=== PATIENT | male | born 1950 | race Caucasian/White ===

== ENCOUNTER 2017-03-28 10:31 | Outpatient (CLI) | payer MEDICARE ==
[~2017-03-28] VITALS: Ht 172.7 cm; Wt 96.2 kg
[~2017-03-28 10:31] MED LIST: /WARF25TA OR; ADV500INH INH; ALBU17IN INH; ALLO10TA OR; ALLO10TA PO; ATEN50TA2 PO; ATOR1TAB21 PO; CLOP75TA2 PO; DIGO0.25 PO; ELIQ5TAB PO; LOVA40TA PO; LR 1,000 ML IV SCH; MAXAIR INH; METO25TAB PO; MISO200T56 PO; NITR4TASL SL; OXYCONTIN OR; PANT40TA2 PO; PERCOCET OR; POTA20TA PO; SUCR1TAB56 PO; VENTAER INH; VITA100072 PO; VITMTA OR; VITMTA PO
[2017-03-28] MEDS ORDERED: LIDOCAINE 2% INJ 100 MG/5 ML SDV (FOR ANES.) As Ordered ONE (11:10)
[2017-03-28] MEDS ORDERED: PROPOFOL 200 MG/20 ML VIAL As Ordered ONE (11:10)
--- NOTE | 2017-03-28 12:42 | ROOR ---
Patient Name: Sandro Nash Procedure Date: 03/28/2017 11:54 AM Date of : 1950 Age: 67 Room: [facility] Gender: Male Note Status: Finalized Procedure: Colonoscopy Indications: Last colonoscopy: 2003, Positive Cologuard test Providers: Sandro Alfonso MD Referring MD: Shane Vance MD Requesting Provider: Medicines: Monitored Anesthesia Care Complications: No immediate complications. Procedure: Pre-Anesthesia Assessment: - Prior to the procedure, a History and Physical was performed, and patient medications and allergies were reviewed. The patient is competent. The risks and benefits of the procedure and the sedation options and risks were discussed with the patient. All questions were answered and informed consent was obtained. Patient identification and proposed procedure were verified by the physician, the nurse and the anesthesiologist in the procedure room. Mental Status Examination: alert and oriented. Airway Examination: normal oropharyngeal airway and neck mobility. CV Examination: regular rate and rhythm. Prophylactic Antibiotics: The patient does not require prophylactic antibiotics. Prior Anticoagulants: The patient has taken no previous anticoagulant or antiplatelet agents. ASA Grade Assessment: III - A patient with severe systemic disease. After reviewing the risks and benefits, the patient was deemed in satisfactory condition to undergo the procedure. The anesthesia plan was to use monitored anesthesia care (MAC). Immediately prior to administration of medications, the patient was re-assessed for adequacy to receive sedatives. The heart rate, respiratory rate, oxygen saturations, blood pressure, adequacy of pulmonary ventilation, and response to care were monitored throughout the procedure. The physical status of the patient was re-assessed after the procedure. The Colonoscope was introduced through the anus and advanced to the cecum, identified by appendiceal orifice and ileocecal valve. The colonoscopy was performed without difficulty. The patient tolerated the procedure well. The quality of the bowel preparation was good. Findings: The perianal and digital rectal examinations were normal. Three sessile polyps were found in the ascending colon. The polyps were 6 to 15 mm in size. These polyps were removed with a hot snare. Resection and retrieval were complete. Estimated blood loss: none. A 5 mm polyp was found at 20 cm proximal to the anus. The polyp was sessile. The polyp was removed with a hot snare. Resection and retrieval were complete. A 8 mm polyp was found in the rectum. The polyp was sessile. The polyp was removed with a hot snare. Resection and retrieval were complete. A few medium-mouthed diverticula were found in the sigmoid colon and descending colon. Impression: - Three 6 to 15 mm polyps in the ascending colon, removed with a hot snare. Resected and retrieved. - One 5 mm polyp at 20 cm proximal to the anus, removed with a hot snare. Resected and retrieved. - One 8 mm polyp in the rectum, removed with a hot snare. Resected and retrieved. - Diverticulosis in the sigmoid colon and in the descending colon. Recommendation: - Discharge patient to home. - Resume previous diet. - Continue present medications. - Await pathology results. - Telephone endoscopist for pathology results in 1 week. Sandro Alfonso MD 03/28/2017 12:42:34 PM Number of Addenda: 0 Note Initiated On: 03/28/2017 11:54 AM Estimated Blood Loss: Estimated blood loss: none.
[2017-03-28 13:05] VITALS: BP 149/96
== END 2017-03-28 13:15 | disposition home or self-care (01) ==
LOC: M OPP 10:31
PROVIDERS: ATTEND Surgery
DX: D12.2 Benign neoplasm of ascending colon (principal); D12.5 Benign neoplasm of sigmoid colon; D12.8 Benign neoplasm of rectum; K57.30 Diverticulosis of large intestine without perforation or abscess without bleeding; I25.2 Old myocardial infarction; I25.10 Atherosclerotic heart disease of native coronary artery without angina pectoris; I10 Essential (primary) hypertension; E78.00 Pure hypercholesterolemia, unspecified; Z95.0 Presence of cardiac pacemaker; M10.9 Gout, unspecified; I48.92 Unspecified atrial flutter; M19.90 Unspecified osteoarthritis, unspecified site; J45.909 Unspecified asthma, uncomplicated; E66.9 Obesity, unspecified; Z87.891 Personal history of nicotine dependence; Z96.9 Presence of functional implant, unspecified; Z98.0 Intestinal bypass and anastomosis status; Z79.899 Other long term (current) drug therapy; Z79.51 Long term (current) use of inhaled steroids

== ENCOUNTER → 2018-03-09 | Outpatient (CLI) | payer MEDICARE | LOC: M LAB 13:25 | DX: J45.41 Moderate persistent asthma with (acute) exacerbation (principal) | CPT/HCPCS: 71046 ==

== ENCOUNTER → 2018-09-04 | Outpatient (CLI) | payer MEDICARE ==
[~2018-09-04] MED LIST changes: +KLOR20TA42 PO; -LR 1,000 ML IV SCH; -PANT40TA2 PO; +PANT40TA3 PO; -POTA20TA PO
[2018-09-04 09:15] LABS: HEMATOCRIT 41.7 % (42.0-52.0); MEAN CORPUSCULAR HEMOGLOBIN 26.8 pg (27.0-33.0); MEAN CORPUSCULAR HGB CONC 31.2 g/dl (32.0-36.5); PLATELET COUNT, AUTOMATED 237 10^3/uL (150-450); RED BLOOD COUNT 4.85 10^6/uL (4.30-6.10); WHITE BLOOD COUNT 6.7 10^3/uL (4.0-10.0)
[2018-09-04 09:39] LABS: HEMOGLOBIN A1c 7.2 %
[2018-09-04 09:48] LABS: ALBUMIN 3.9 GM/DL (3.2-5.2); ALT/SGPT 34 U/L (12-78); BILIRUBIN,TOTAL 0.6 MG/DL (0.2-1.0); BLOOD UREA NITROGEN 18 MG/DL (7-18); CALCIUM LEVEL 8.8 MG/DL (8.8-10.2); CARBON DIOXIDE LEVEL 25 MEQ/L (21-32); CHLORIDE LEVEL 107 MEQ/L (98-107); CHOLESTEROL LEVEL 95 MG/DL (<200); CHOLESTEROL RISK RATIO 2.638 (<5); FERRITIN 32 NG/ML (26-388); GLOMERULAR FILTRATION RATE > 60.0 (>42); GLUCOSE, FASTING 138 MG/DL (70-100); HDL CHOLESTEROL 36 MG/DL (>40); IRON (FE) 56 UG/DL (65-175); LDL CHOLESTEROL 31 MG/DL (<100); MAGNESIUM LEVEL 1.9 MG/DL (1.8-2.4); NON-HDL-C 59 MG/DL; PERCENT SATURATION 14.6 % (19.7-50.0); POTASSIUM SERUM 4.1 MEQ/L (3.5-5.1); SODIUM LEVEL 140 MEQ/L (136-145); THYROID STIMULATING HORMONE 0.801 uIU/ML (0.358-3.740); TOTAL IRON BINDING CAPACITY 384 UG/DL (250-450); TRIGLYCERIDES LEVEL 138 MG/DL (<150)
[2018-09-04 09:49] LABS: FOLATE 23.9 NG/ML; TOTAL 25(OH) VITAMIN D 31.9 NG/ML (30.0-100.0); VITAMIN B12 LEVEL > 2000 PG/ML
== END ==
LOC: M LAB 08:07
PROVIDERS: ATTEND Family Medicine
DX: Z98.84 Bariatric surgery status (principal); E66.9 Obesity, unspecified; Z79.899 Other long term (current) drug therapy

== ENCOUNTER → 2019-02-26 | Outpatient (CLI) | payer MEDICARE, OTHER ==
[~2019-02-26] MED LIST changes: -/WARF25TA OR; +COUM1TAB18 OR; +METO1TAB63 PO; -METO25TAB PO; +OXYC1TAB23 OR; -PERCOCET OR; +VITA100018 PO; -VITA100072 PO
--- NOTE | 2019-02-26 08:08 | REP ---
Clinical: Asthma with acute exacerbation. Technique: PA and lateral. Comparison: 03/09/2018. Findings: Mediastinum and cardiac silhouette are stable including pacemaker, sternotomy and CABG. Lung de dios demonstrate chronic stable interstitial changes primarily involving the right base. No definite acute process is appreciated although subtle superimposed atelectasis cannot be excluded. No effusion. No pneumothorax. Skeletal structures intact. Impression: Chronic stable changes as compared to 03/09/2018. Cannot exclude subtle superimposed atelectasis. Electronically Signed by Uriel Blas MD 02/26/2019 07:59 A
== END ==
LOC: M RAD 07:11
PROVIDERS: ATTEND Internal Medicine Pulmonary Disease
DX: J45.41 Moderate persistent asthma with (acute) exacerbation (principal); J84.9 Interstitial pulmonary disease, unspecified

== ENCOUNTER → 2019-03-09 | Outpatient (CLI) | payer MEDICARE ==
[2019-03-09 08:54] LABS: HEMATOCRIT 39.4 % (42.0-52.0); HEMOGLOBIN 12.4 g/dl (13.5-17.5); MEAN CORPUSCULAR HEMOGLOBIN 26.4 pg (27.0-33.0); MEAN CORPUSCULAR HGB CONC 31.5 g/dl (32.0-36.5); PLATELET COUNT, AUTOMATED 215 10^3/uL (150-450); RED BLOOD COUNT 4.69 10^6/uL (4.30-6.10); WHITE BLOOD COUNT 7.4 10^3/uL (4.0-10.0)
[2019-03-09 09:19] LABS: ALBUMIN 3.8 GM/DL (3.2-5.2); ALT/SGPT 41 U/L (12-78); BILIRUBIN,TOTAL 0.6 MG/DL (0.2-1.0); BLOOD UREA NITROGEN 16 MG/DL (7-18); CALCIUM LEVEL 8.8 MG/DL (8.8-10.2); CARBON DIOXIDE LEVEL 29 MEQ/L (21-32); CHLORIDE LEVEL 109 MEQ/L (98-107); CHOLESTEROL LEVEL 122 MG/DL (<200); CHOLESTEROL RISK RATIO 2.837 (<5); GLOMERULAR FILTRATION RATE > 60.0 (>42); GLUCOSE, FASTING 124 MG/DL (70-100); HDL CHOLESTEROL 43 MG/DL (>40); LDL CHOLESTEROL 33 MG/DL (<100); MAGNESIUM LEVEL 2.1 MG/DL (1.8-2.4); NON-HDL-C 79 MG/DL; POTASSIUM SERUM 4.3 MEQ/L (3.5-5.1); SODIUM LEVEL 142 MEQ/L (136-145); TOTAL PROTEIN 7.1 GM/DL (6.4-8.2); TRIGLYCERIDES LEVEL 232 MG/DL (<150)
== END ==
LOC: M LAB 06:59
PROVIDERS: ATTEND Physician Assistant
DX: I11.9 Hypertensive heart disease without heart failure (principal); E78.00 Pure hypercholesterolemia, unspecified; I48.3 Typical atrial flutter; I25.10 Atherosclerotic heart disease of native coronary artery without angina pectoris

== ENCOUNTER → 2020-04-18 | Outpatient (CLI) | payer MEDICARE, OTHER ==
[~2020-04-18] MED LIST changes: +PANT40TA29 PO; -PANT40TA3 PO
== END ==
LOC: M LABSMTC 08:06
PROVIDERS: ATTEND Anesthesiology
DX: Z01.812 Encounter for preprocedural laboratory examination (principal); Z20.828 Contact with and (suspected) exposure to other viral communicable diseases

== ENCOUNTER 2020-04-23 09:48 | Day surgery (SDC) | payer MEDICARE, OTHER ==
[~2020-04-23] VITALS: Ht 172.7 cm; Wt 100.2 kg
[~2020-04-23 09:48] MED LIST changes: +NS 1,000 ML IV ONE
[2020-04-23] MEDS ORDERED: propofoL 200 MG/20 ML VIAL As Ordered ONE (11:56)
[2020-04-23 13:05] VITALS: BP 130/75
--- NOTE | 2020-05-06 11:30 | ROOR ---
Patient Name: Sandro Nash Procedure Date: 04/23/2020 12:07 PM Date of : 1950 Age: 70 Room: [facility] Gender: Male Note Status: Finalized Procedure: Colonoscopy Indications: High risk colon cancer surveillance: Personal history of colonic polyps, Last colonoscopy: March 2017 Providers: Sandro Alfonso MD Referring MD: Shane Vance MD Requesting Provider: Medicines: Monitored Anesthesia Care Complications: No immediate complications. Procedure: Pre-Anesthesia Assessment: - Prior to the procedure, a History and Physical was performed, and patient medications and allergies were reviewed. The patient is competent. The risks and benefits of the procedure and the sedation options and risks were discussed with the patient. All questions were answered and informed consent was obtained. Patient identification and proposed procedure were verified by the physician, the nurse and the manager personal in the procedure room. Mental Status Examination: alert and oriented. CV Examination: regular rate and rhythm. Prophylactic Antibiotics: The patient does not require prophylactic antibiotics. Prior Anticoagulants: The patient has taken no previous anticoagulant or antiplatelet agents. ASA Grade Assessment: III - A patient with severe systemic disease. After reviewing the risks and benefits, the patient was deemed in satisfactory condition to undergo the procedure. The anesthesia plan was to use monitored anesthesia care (MAC). Immediately prior to administration of medications, the patient was re-assessed for adequacy to receive sedatives. The heart rate, respiratory rate, oxygen saturations, blood pressure, adequacy of pulmonary ventilation, and response to care were monitored throughout the procedure. The physical status of the patient was re-assessed after the procedure. The Colonoscope was introduced through the anus and advanced to the cecum, identified by appendiceal orifice and ileocecal valve. The colonoscopy was performed without difficulty. The patient tolerated the procedure well. The quality of the bowel preparation was good. Findings: The perianal and digital rectal examinations were normal. A 3 mm polyp was found in the proximal transverse colon. The polyp was sessile. The polyp was removed with a jumbo cold forceps. Resection and retrieval were complete. Estimated blood loss was minimal. Many medium-mouthed diverticula were found in the sigmoid colon, descending colon, splenic flexure and transverse colon. A 3 mm polyp was found at 20 cm proximal to the anus. The polyp was sessile. The polyp was removed with a jumbo cold forceps. Resection and retrieval were complete. Estimated blood loss was minimal. Impression: - One 3 mm polyp in the proximal transverse colon, removed with a jumbo cold forceps. Resected and retrieved. - Diverticulosis in the sigmoid colon, in the descending colon, at the splenic flexure and in the transverse colon. - One 3 mm polyp at 20 cm proximal to the anus, removed with a jumbo cold forceps. Resected and retrieved. Recommendation: - Discharge patient to home. - Resume previous diet. - Continue present medications. - Await pathology results. - If the pathology report reveals adenomatous tissue, then repeat the colonoscopy for surveillance in 3 - 5 years. Sandro Alfonso MD Sandro Alfonso MD 04/23/2020 12:59:00 PM Number of Addenda: 0 Note Initiated On: 04/23/2020 12:07 PM Estimated Blood Loss: Estimated blood loss was minimal.
== END 2020-04-23 13:24 | disposition home or self-care (01) ==
LOC: M OPP 09:48
PROVIDERS: ATTEND Surgery
DX: Z12.11 Encounter for screening for malignant neoplasm of colon (principal); Z86.010 Personal history of colon polyps; D12.6 Benign neoplasm of colon, unspecified; K57.30 Diverticulosis of large intestine without perforation or abscess without bleeding; I25.2 Old myocardial infarction; Z79.899 Other long term (current) drug therapy; Z98.84 Bariatric surgery status; Z87.891 Personal history of nicotine dependence; Z95.812 Presence of fully implantable artificial heart

== ENCOUNTER → 2021-04-08 | Outpatient (CLI) | payer OTHER ==
[~2021-04-08] MED LIST changes: -NS 1,000 ML IV ONE
--- NOTE | 2021-04-08 08:55 | REP ---
INDICATION: MODERATE PERSISTENT ASTHMA, UNCOMPLICATED. COMPARISON: 02/26/2019 TECHNIQUE: Two views FINDINGS: Postoperative changes after cardiac surgery interval pacemaker insertion PA who heart slightly enlarged. No interval change since the previous study. No failure. Chronic changes at the right base showing no interval change compared with the previous study. Partial eventration right hemidiaphragm. Lungs free of active parenchymal disease PH chronic blunting left costophrenic angle. IMPRESSION: No interval change when compared with the previous study paired no evidence of pneumonia or failure. <Electronically signed by Jagjit Orozco > 04/08/21 1998
== END ==
LOC: M RAD 08:37
PROVIDERS: ATTEND Internal Medicine Pulmonary Disease
DX: J45.40 Moderate persistent asthma, uncomplicated (principal); Z95.0 Presence of cardiac pacemaker

== ENCOUNTER 2021-08-09 23:02 | Emergency (ER) | payer OTHER ==
[~2021-08-09] VITALS: Ht 172.7 cm; Wt 102.3 kg
[2021-08-09 23:02] VITALS: BP 143/77
[~2021-08-09 23:02] MED LIST changes: -KLOR20TA42 PO; +POTA-141 PO
--- OUTSIDE RECORDS SUMMARY | 2021-08-09 23:10 | CCD | Continuity of Care Document ---
Author Author Sandro BENNETT PA-C Organization Unknown Address [id number] [place] [address], [place] [address] Phone [phone] Care Team Providers Care Leasing Director Name Role Phone Shane Vance MD AUTM [phone] Ariel Stanford DO AUTM [phone] Shen Aviles PA-C AUTM [phone] Jackelin Walker MD AUTM [phone] Leandra Xie MD AUTM [phone] Natali Bennett PA-C AUTM [phone] Tylor Cash MD AUTM [phone] Problems Active Problems Provider Date Coronary arteriosclerosis SOILA Villagomez Onset: 12/08/2011 Coronary artery bypass grafts x 3 ARABELLA Villagomez Onset: 12/08/2011 Old myocardial infarction SOILA Villagomez Onset: 12/08/2011 Benign hypertensive heart disease without congestive h eart failure SOILA Villagomez Onset: 12/08/2011 Aneurysm of thoracic aorta Natali Bennett PA-C Onset: 07/18 Electrocardiogram abnormal SOILA Villagomez Onset : 12/08/2011 Right bundle branch block SOILA Villagomez Onset: 12/08/2011 Aortic valve disorder SOILA Villagomez Onset: 07/2012 Mitral valve disorder SOILA Villagomez Onset: 07/2012 Pure hypercholesterolemia Hiral Corea, [employer] Onset: 12/08/2011 Obesity ELLIOT VillaC Onset: 07/18/2014 History of coronary artery bypass grafting Natali Bennett P A-C Onset: 06/18/2015 Mitral leaflet abnormality ELLIOT VillaC Onset: 06/18 Carotid artery occlusion ASIM Villa-C Onset: 016 Atrial flutter ELLIOT VillaC Onset: 07/25/2016 Sinus node dysfunction ELLIOT VillaC Onset: 7 Cardiac pacemaker in situ ELLIOT VillaC Onset: 2016 Dietary management surveillance Natali Bennett PA-C Onset: 08/03/2017 Chronic diastolic heart failure ELLIOT VillaC Onset: 03/16/2021 Hypertensive heart disease with congestive heart failure Gemma Bennett PA-C Onset: 03/16/2021 Allergic asthma without status asthmaticus Onset: 01/13/2017 Cough Onset: 04/01/2021 Essential hypertension Onset: 01/13/2017 Hemorrhage of rectum and anus Onset: 08/2016 Sarcoidosis Onset: 07/28/2020 Social History Type Date Description Comments Sex Unknown Tobacco Use Start: Unknown End: Unknown Former Cigarette Smo ker quit 35 yrs ago, 1ppd ETOH Use Consumes Alcohol 2-3 drinks- 3 t imes a week Tobacco Use Start: Unknown End: Unknown Patient is a former smoker quit 1978 1ppd smoked 10 years Smoking Status Reviewed: 07/26/21 Patient is a former smoker q uit 1978 1ppd smoked 10 years Exercise Type/Frequency Does housework daily Exercise Type/Frequency Plays golf 3 times a wee k Exercise Type/Frequency Walks daily Exercise Limitations None Allergies and adverse reactions Description No Known Drug Allergies Medications Active Medications SIG Qnty Indications Ordering Provide r Date Eliquis 5mg Tablets 1 by mouth twice a day 180tabs I48.3 Valentin Ye MD 05/05/2021 Atenolol 50mg Tablets 1 by mouth twice a day 180tabs I25.10 Valentin Ye MD 05/05/2021 I11.9 I48.3 Valsartan 40mg Tablets 1 by mouth every night at bedtime 90tabs I25.10 Valentin Ye MD 05/05/2021 I50.32 Aspirin Adult Low Dose 81mg Tablet s DR 1 by mouth every day Valentin Ye MD 05/04/2021 Furosemide 20mg Tablets 1 by mouth every day 90tabs I50.31 Valentin Ye MD 12/16/2020 Misoprostol 200mcg Tablets 1 by mouth bid Unknown 03/06/2019 Vitamin C ER 1000mg Tablets ER take 1 tab by mouth daily Unknown 02/06/2018 Maxair Autohaler 200mcg/Inh Aeroso l 2 puffs as needed Ariel Stanford, DO 07/24/2016 Calcium Citrate + Tablets 1 by mouth twice a day Chang Vega MD 07/24/2016 Advair Diskus 250-50mcg/Dose Aeros ol 1 puff twice a day Ariel Stanford, DO 07/24/2016 Potassium Chloride ER 20Meq Tablet s ER 1 by mouth every day Jackelin Walker MD 016 Vitamin B-12 500mcg Tablets 1 by mouth every day Jackelin Walker MD 12/17/2015 Atorvastatin Calcium 80mg Tablets 1 by mouth every night at bedtime 90tabs E78.00 Valentin Ye MD 03/05/2014 I25.10 Nitrostat 0.4mg Tablets Sub 1 sl every 5min x3 as needed for chest pain 25tabs I25.10 Valentin Ye MD 08/01/2011 Allopurinol 100mg Tablets 1 P O daily Shane Vance MD 06/20/2008 Multivitamins Tablets 1 PO d aily Shane Vance MD History Medications Lisinopril 2.5mg Tablets 1 by mouth every night at bedtime 90tabs I25.10 Valentin Ye MD 03/16/2021 - 05/04/2021 I50.32 Immunizations Description No Information Available Vital Signs Date Vital Result Comment 07/26/2021 9:25am Weight 227.00 lb Home Weight 226lb home weight Height 68 inches 5'8" BMI (Body Mass Index) 34.5 kg/m2 Heart Rate 76 /min Regular Respiratory Rate 16 /min BP Systolic Right Arm 128 mmHg sitting, regular c uff BP Diastolic Right Arm 74 mmHg sitting, regular cuff 05/05/2021 8:04am Weight 220.00 lb Home Weight 218lb Height 68 inches 5'8" BMI (Body Mass Index) 33.4 kg/m2 Heart Rate 80 /min Irregular Respiratory Rate 16 /min BP Systolic Right Arm 128 mmHg sitting, regular c uff BP Diastolic Right Arm 74 mmHg sitting, regular cuff Results Test Acquired Date Facility Test Result H/L Range Note Basic Metabolic Profile 06/28/2021 [facility] [place] Glucose 108 mg/dL High 65-99 BUN 16 mg/dL 8-27 Creatinine 0.81 mg/dL 0.76-1.27 eGFR If NonAfricn Am 88 mL/min/1.73 >59 eGFR If Africn Am 102 mL/min/1.73 >59 1 BUN/Creatinine Ratio 20 10-24 Sodium 142 mmol/L 134-144 Potassium 4.8 mmol/L 3.5-5.2 Chloride 105 mmol/L 96-106 Carbon Dioxide, Total 25 mmol/L 20-29 Calcium 9.2 mg/dL 8.6-10.2 Laboratory test finding 06/28/2021 [facility] Magnesium 1.9 mg/dL 1.6-2.3 PDF [id number] SEE IMAGE CMP 03/15/2021 [facility] Albumin Serum/Plasma 4.6 Alt - SGPT 30 Calcium Ser/Plasma Mass/Vol 9.4 Carbon Dioxide Ser/Plasm 25 Chloride Serum/Plasma 102 Alkaline Phosphatase 123 Potassium 4.7 Protein Total 7.2 Sodium 139 Ast - Sgot 23 BUN - Urea Nitrogen 15 Glucose 157 High 70-100 Creatinine For GFR 0.91 CBC without Differential 03/15/2021 [facility] White Blood Count 8.9 4.3-10.9 Red Blood Count 5.18 4.70-6.20 Platelets 263 130-400 Hemoglobin 11.3 Low 13.0-17.0 Hematocrit 38.8 Low 39.0-50.0 Lipid Profile/Cardiac Risk Pro 03/15/2021 [facility] Triglycerides 226 Cholesterol 116 Low 120-200 HDL 38 Low 40-60 LDL Cholesterol 42 Chol/HDL Ratio -- Laboratory test finding 03/15/2021 [facility] Magnesium Level 2.0 Metabolic Panel (14), Comprehensive 03/15/2021 [facility] Glucose 157 mg/dL High 65-99 BUN 15 mg/dL 8-27 Creatinine 0.91 mg/dL 0.76-1.27 eGFR If NonAfricn Am 83 mL/min/1.73 >59 eGFR If Africn Am 96 mL/min/1.73 >59 2 BUN/Creatinine Ratio 16 10-24 Sodium 139 mmol/L 134-144 Potassium 4.7 mmol/L 3.5-5.2 Chloride 102 mmol/L 96-106 Carbon Dioxide, Total 25 mmol/L 20-29 Calcium 9.4 mg/dL 8.6-10.2 Protein, Total 7.2 g/dL 6.0-8.5 Albumin 4.6 g/dL 3.7-4.7 Globulin, Total 2.6 g/dL 1.5-4.5 A/G Ratio 1.8 1.2-2.2 Bilirubin, Total 0.5 mg/dL 0.0-1.2 Alkaline Phosphatase 123 IU/L High 48-121 Ast (Sgot) 23 IU/L 0-40 Alt (SGPT) 30 IU/L 0-44 CBC, Platelet, No Differential 03/15/2021 [facility] WBC 8.9 x10E3/uL 3.4-10.8 RBC 5.18 x10E6/uL 4.14-5.80 Hemoglobin 11.3 g/dL Low 13.0-17.7 Hematocrit 38.8 % 37.5-51.0 MCV 75 fL Low 79-97 MCH 21.8 pg Low 26.6-33.0 MCHC 29.1 g/dL Low 31.5-35.7 RDW 19.8 % High 11.6-15.4 Platelets 263 x10E3/uL 150-450 NRBC TNP Lipid Panel 03/15/2021 [facility] Cholesterol, Total 116 mg/dL 100-199 Triglycerides 226 mg/dL High 0-149 HDL Cholesterol 38 mg/dL Low >39 VLDL Cholesterol Sánchez 36 mg/dL 5-40 LDL Chol Calc (Nih) 42 mg/dL 0-99 Comment: [place] Laboratory test finding 03/15/2021 [facility] Magnesium 2.0 mg/dL 1.6-2.3 PDF [id number] SEE IMAGE 1 In accordance with recomme ndations from the NKF-ASN Task force, [facility] the [facility] eGFR calculation to the 2020 CKD-EPI creatinine equation that es timates kidney function without a race variable. 2 [facility] currently [facility] eGFR in compliance with the current recommendations of the National Kidney Foundation. [employer] will update reporting as new guidelines are published from the NKF-ASN Task force. Procedures Date Code Description Status 07/26/2021 29255 Office/Outpatient Established Lo w MDM 20-29 Min Completed 07/26/2021 70583 ECG 12-Lead Completed 05/05/2021 04912 Office/Outpatient Established Lo w MDM 20-29 Min Completed 05/05/2021 91393 Pacer Programming Single Lead Co mpleted 03/16/2021 84933 Office/Outpatient Established Mo d MDM 30-39 Min Completed 03/16/2021 10589 ECG 12-Lead Completed Medical Devices Description No Information Available Encounters Type Date Location Provider Dx Diagnosis Office Visit 07/26/2021 9:30a Main Office Natali Bennett PA-C I50.3 2 Chronic diastolic (congestive) heart failure I48.3 Typical atrial flutter Office Visit 05/05/2021 7:45a Main Office Natali Bennett PA-C I48.3 Typical atrial flutter I50.32 Chronic diastolic (congestiv e) heart failure I49.5 Sick sinus syndrome Office Visit 03/16/2021 7:45a Main Office Natali Bennett PA-C I25.1 0 Athscl heart disease of [place] coronary artery w/o ang pctrs I25.2 Old myocardial infarction Z95.1 Presence of aortocoronary by pass graft I50.32 Chronic diastolic (congestiv e) heart failure I11.0 Hypertensive heart disease w ith heart failure I48.3 Typical atrial flutter I71.2 Thoracic aortic aneurysm, wi thout rupture I35.1 Nonrheumatic aortic (valve) insufficiency I34.8 Other nonrheumatic mitral va lve disorders R94.31 Abnormal electrocardiogram [ ECG] [EKG] I45.0 Right fascicular block E78.00 Pure hypercholesterolemia, u nspecified I65.23 Occlusion and stenosis of bi lateral carotid arteries I49.5 Sick sinus syndrome Z95.0 Presence of cardiac pacemake r Z71.3 Dietary counseling and surve illance Assessments Date Code Description Provider 07/26/2021 I50.32 Chronic diastolic (congestive) h eart failure Natali Bennett, PA-C 07/26/2021 I48.3 Typical atrial flutter Natali razoow, PA-C 05/05/2021 I48.3 Typical atrial flutter Natali Dominguez menow, PA-C 05/05/2021 I50.32 Chronic diastolic (congestive) h eart failure Natali Bennett, PA-C 05/05/2021 I49.5 Sick sinus syndrome Natali valenzuela, PA-C 03/16/2021 I25.10 Atherosclerotic heart disease of [place] coronary artery with Natali Bennett, PA-C 03/16/2021 I25.2 Old myocardial infarction Natali Bennett, PA-C 03/16/2021 Z95.1 Presence of aortocoronary bypass graft Natali Bennett, PA-C 03/16/2021 I50.32 Chronic diastolic (congestive) h eart failure Natali Bennett, PA-C 03/16/2021 I11.0 Hypertensive heart disease with heart failure Natali Thomasw, PA-C 03/16/2021 I48.3 Typical atrial flutter Natali razoow, PA-C 03/16/2021 I71.2 Thoracic aortic aneurysm, withou t rupture Natali Bennett, PA-C 03/16/2021 I35.1 Nonrheumatic aortic (valve) insu fficiency Natali Thomasw, PA-C 03/16/2021 I34.8 Other nonrheumatic mitral valve disorders Natali Thomasw, PA-C 03/16/2021 R94.31 Abnormal electrocardiogram [ECG] [EKG] Natali Thomasw, PA-C 03/16/2021 I45.0 Right fascicular block Natali boggs, PA-C 03/16/2021 E78.00 Pure hypercholesterolemia, unspe cified Natali Thomasw, PA-C 03/16/2021 I65.23 Occlusion and stenosis of bilate ral carotid arteries Natali Thomasw, PA-C 03/16/2021 I49.5 Sick sinus syndrome Natali valenzuela PA-C 03/16/2021 Z95.0 Presence of cardiac pacemaker Deysi Saldivar PA-C 03/16/2021 Z71.3 Dietary counseling and surveilla ncanthony Bennett PA-C Plan of Treatment Future Appointment(s):* 10/25/2021 10:15 am - Natali Bennett PA-C at Main Office * 11/03/2021 7:45 am - Natali Bennett PA-C at Main Office 07/26/2021 - Natali Bennett PA-C* I50.32 Chronic diastolic (congestive) heart failure* New Labs:* Basic Metabolic Panel (8), Scheduled: 10/18/21 * Recommendations:* Follow a 2 grams sodium diet and 50 ounces fluid restriction per 24 hour and do daily weights. Call the office for weight gain of 3 lbs or more. * I48.3 Typical atrial flutter* New Labs:* Basic Metabolic Panel (8), Scheduled: 10/18/21 * Magnesium, Scheduled: 10/18/21 * CBC, Platelet, No Differential, Scheduled: 10/18/21 * All * Follow up:* 3 month follow up. Request carotid ultrasound done at Dr. Cash's office about 2 weeks ago. Functional Status Functional Condition Comment Date Status Independent with all ADL's Activ e Mental Status Description No Information Available Referrals Description No Information Available
--- OUTSIDE RECORDS SUMMARY | 2021-08-09 23:10 | CCD ---
Continuity of Care Document (CCD) Created on: 05/25/2021 Sandro Nash External Reference #: [id number] : [id number] Sex: Male Author Sandro Godoy DO Organization Unknown Address [address] [place] [address] Phone [phone] Care Team Providers Care Building Maintenance Worker Name Role Phone Shane Vance M.D. AUTM [phone] Valentin Ye M.D. AUTM [phone] Problems Active Problems Provider Date Essential hypertension Onset: 01/13/2017 Allergic asthma without status asthmaticus Onset: 01/13/2017 Hemorrhage of rectum and anus JONO Mendez Onset: 08/2016 Cough Ariel Stanford DO Onset: 04/01/2021 Sarcoidosis Ariel Stanford DO Onset: 07/28/2020 Uncomplicated moderate persistent asthma Maria D Andrew Onset: 07/28/2020 Social History Type Date Description Comments Sex Unknown ETOH Use Currently consumes alcohol CASUA L Recreational Drug Use Denies Drug Use Tobacco Use Start: Unknown End: Patient is a former smoker 1 PPD FOR 10 YEARS Smoking Status Reviewed: 04/29/21 Patient is a former smoker 1 PPD FOR 10 YEARS Allergies, Adverse Reactions, Alerts Description No Known Drug Allergies Medications Active Medications SIG Qnty Indications Ordering Provide r Date Albuterol Sulfate (2 .5mg/3ML) 0.083% Nebulizer 1 vial four times a day as needed 360ml J45.40 Ariel Stanford DO 04/08/2021 Advair Diskus 250-50mcg/Dose Aeros ol 1 puff twice a day 180units Ariel Stanford DO 07/28/2020 Albuterol Sulfate HFA 108(90Base) mcg/Act Aerosol Inhale 2 Puffs By Mouth Four Times Daily as Needed 25.5units JONO Ferrer 05/30/2020 Atenolol 50mg Tablets 1 tab by mouth every day Unknown Allopurinol 100mg Tablets 1 tab by mouth every day Unknown Atorvastatin Calcium 80mg Tablets 1 tab by mouth every day 90tabs Unknown Pantoprazole Sodium 40mg Tablets D R 1 tab by mouth every day Unknown Furosemide 20mg Tablets 1 tab by mouth every day Unknown Lisinopril 2.5mg Tablets 1 tab by mouth every day Unknown History Medications Prednisone 10mg Tablets 20mg by mouth x5days, 10mg by mouth x5 days, 5mg by mouth x5days then stop 20tabs J45.40 Ariel Stanford DO 04/01/2021 - 04/28/2021 Medications Administered in Office Medication SIG Qnty Indications Ordering Provider Date Covid-19 vaccine, Unspecified Inj ection Unknown 10/17/2020 Covid-19 vaccine, Unspecified Inj ection Unknown 09/26/2020 Immunizations CPT Code Status Date Vaccine Lot # [id number] Given 06/29/2020 Flublock, Quadrivalent Vital Signs Date Vital Result Comment 04/29/2021 8:23am BP Systolic 124 mmHg BP Diastolic 62 mmHg Heart Rate 73 /min O2 % BldC Oximetry 98 % Height 68 inches 5'8" Weight 224.00 lb BMI (Body Mass Index) 34.1 kg/m2 [place] Body Weight 154 lb Weight 101.606 kg BSA (Body Surface Area) 2.14 m2 04/01/2021 8:58am BP Systolic 96 mmHg BP Diastolic 62 mmHg Heart Rate 70 /min O2 % BldC Oximetry 96 % Body Temperature 98.5 F Height 68 inches 5'8" Weight 223.00 lb BMI (Body Mass Index) 33.9 kg/m2 [place] Body Weight 154 lb Weight 101.153 kg BSA (Body Surface Area) 2.14 m2 Results Test Acquired Date Facility Test Result H/L Range Note FVL/Angel 02/09/2021 [facility] SEE IMAGE FVC-Pred 4.02 L FVC-Pre 3.37 L FVC-%Pred-Pre 83 L FVC-LLN 3.14 L Fev1-Pred 2.93 L Fev1-Pre 2.32 L Fev1-%Pred-Pre 79 L Fev1-LLN 2.18 L Fev6-Pred 3.77 L Fev6-Pre 3.28 L Fev6-%Pred-Pre 86 L Fev6-LLN 2.92 L Hgz9jwc-Fihy 73 % Cfi6wnm-Ami 69 % Jik3vlj-%Pred-Pre 94 % Rmv5edp-TXR 63 % Khw1nmv-Uipp 94 % Vnf9rsx-Meg 97 % Scu3nlc-%Pred-Pre 103 % FEFMax-Pred 7.71 L/E/sec FEFMax-Pre 3.54 L/E/sec FEFMax-%Pred-Pre 45 L/E/sec FEFMax-LLN 5.52 L/E/sec Hdx1115-Yddv 2.19 L/E/sec Lyw3241-Opd 1.61 L/E/sec Gva3918-%Pred-Pre 73 L/E/sec Esr4274-TFQ 0.68 L/E/sec ExpTime-Pre 8.63 sec Fxx3pop7-Bydt 77 % Ple4mny8-Nqi 71 % Ptd6msz6-%Pred-Pre 91 % Lbx1jjp4-GKM 68 % Procedures Date Code Description Status 04/29/2021 86539 Office/Outpatient Established Mo d MDM 30-39 Min Completed 04/01/2021 30620 Office/Outpatient Established Mo d MDM 30-39 Min Completed 02/09/2021 60700 Office/Outpatient Established Mo d MDM 30-39 Min Completed 02/09/2021 73662 Spirometry Completed Medical Devices Description No Information Available Encounters Type Date Location Provider Dx Diagnosis Office Visit 04/29/2021 8:30a [facility] Maria D Stanford, DO J45.40 Moderate persistent asthma, uncomplicated D86.0 Sarcoidosis of lung Office Visit 04/01/2021 9:00a [facility] Maria D Stanford, J45.40 Moderate persistent asthma, uncomplicated D86.0 Sarcoidosis of lung R05 Cough Office Visit 02/09/2021 8:30a [facility] Maria D Stanford, DO J45.40 Moderate persistent asthma, uncomplicated D86.0 Sarcoidosis of lung Assessments Date Code Description Provider 04/29/2021 J45.40 Moderate persistent asthma, unco mplicated Ariel Stanford DO 04/29/2021 D86.0 Sarcoidosis of lung Ariel Dee hlin, DO 04/01/2021 J45.40 Moderate persistent asthma, unco mplicated Ariel Stanford, DO 04/01/2021 D86.0 Sarcoidosis of lung Ariel Carney Rec hlin, DO 04/01/2021 R05 Cough Ariel Stanford , DO 02/09/2021 J45.40 Moderate persistent asthma, unco mplicated Ariel Stanford, DO 02/09/2021 D86.0 Sarcoidosis of lung Ariel Dee hlin, DO Plan of Treatment Future Appointment(s):* 08/11/2021 8:30 am - Ariel Stanford DO at [facility] 04/29/2021 - Ariel Stanford DO* J45.40 Moderate persistent asthma, uncomplicated * D86.0 Sarcoidosis of lung * * Comments:* ~ Having reviewed the history, physical, and diagnostic findings with the patient, I have recommended that he hold the Lisinopril and call us if his cough continues. I suspect this is an CANDELARIO related cough. If by chance this cough persists, further interventions will be necessary. He will call the office next week with an update. He will keep his routine follow-up visit as previously scheduled.04/29/21 OFFICE VISIT (page 2 of 2) * Follow up:* Stop Lisinopril, and call if the cough continues. Keep routine follow-up as previously scheduled. Functional Status Description No Information Available Mental Status Description No Information Available Referrals Description No Information Available
--- OUTSIDE RECORDS SUMMARY | 2021-08-09 23:10 | CCD | Continuity of Care Document ---
Author Author [facility] Organization Unknown Address [address] [place] [address] Phone Unavailable Care Team Providers Care [employer] Worker Name Role Phone Natali Downey AUTM [phone] Shane Vance M.D. AUTM [phone] Valentin Ye M.D. AUTM [phone] Ariel Stanford M.D. AUTM [phone] Problems Active Problems Provider Date Carotid artery occlusion Natali Downey R.P.A-C. Onset: 11/27 History of coronary artery bypass grafting Natali Downey R. P.A-C. Onset: 06/18/2015 Mitral leaflet abnormality Natali Downey R.P.A-C. Onset: Aneurysm of thoracic aorta Natali Downey R.P.A-C. Onset: Obesity Natali Downey R.P.A-C. Onset: 4 Coronary arteriosclerosis Hiral Corea, N.PMarga Onset: 07/2012 Coronary artery bypass grafts x 3 Hiral Corea N.Angelika On set: 12/08/2011 Old myocardial infarction Hiral Corea N.PMarga Onset: 07/2012 Benign hypertensive heart disease without congestive h eart failure Hiral Corea, N.PMarga Onset: 12/08/2011 Electrocardiogram abnormal Hiral Corea, N.PMarga Onset: Right bundle branch block Hiral Corea, N.PMarga Onset: 07/2012 Aortic valve disorder Hiral Corea N.P. Onset: 012 Mitral valve disorder Hiral Corea N.P. Onset: 012 Pure hypercholesterolemia Hiral Corea N.P. Onset: 07/2012 Atrial fibrillation Uriel Kemp M.D. Onset: 01/14/2016 Essential hypertension Uriel Kemp M.D. Onset: 01/14/20 16 Social History Type Date Description Comments Sex Unknown ETOH Use Rarely consumes alcohol Tobacco Use Start: Unknown End: Unknown Patient is a former smoker 1ppd for 10 years quit 1978 Smoking Status Reviewed: 08/08/18 Patient is a former smoker 1p pd for 10 years quit 1978 Allergies and adverse reactions Description No Known Drug Allergies Medications Active Medications SIG Qnty Indications Ordering Provide r Date Eliquis 5mg Tablets 1 by mouth twice a day 180tabs I48.92 Valentin Ye M.D. 12/18/2015 Digoxin 250mcg Tablets 1 by mouth every day Unknown 12/17/2015 Misoprostol 200mcg Tablets 1 by mouth every 6 hours Unknown 12/17/2015 Pantoprazole Sodium 40mg Tablets D R 1 by mouth every day Unknown 12/17/2015 Potassium Chloride ER 20Meq Tablet s ER 1 by mouth every day Unknown 12/17/2015 Vitamin B-12 500mcg Tablets 1 by mouth every day Unknown 12/17/2015 Amoxicillin 500mg Capsules 4 capsules by mouth 1 hour prior to dental procedures (sbe for knee replacement) Shane Vance M.D. 07/17/2014 Atorvastatin Calcium 80mg Tablets 1 by mouth every night at bedtime 90tabs E78.0 Valentin Ye M.D. 03/05/2014 Nitrostat 0.4mg Tablets Sub 1 sl every 5min x3 as needed for chest pain 25tabs I25.10 Valentin Ye M.D. 08/01/2011 Advair Diskus 500-50mcg/Dose Aeros ol 1 puff bid Shane Vacne M.D. 06/20/2008 Allopurinol 100mg Tablets 1 P O daily Shane Vance M.D. 06/20/2008 Proair HFA 108(90Base) mcg/Act Aer osol 1 puff prn Shane Vance M.D. Multivitamins Capsules 1 by mouth every day Unknown Calcium Citrate 2qd Unknown 0 Atenolol 50mg Tablets every d ay Unknown Immunizations Description No Information Available Vital Signs Date Vital Result Comment 07/14/2021 12:21pm BP Systolic Right Arm 131 mmHg BP Diastolic Right Arm 75 mmHg BP Systolic Left Arm 120 mmHg BP Diastolic Left Arm 73 mmHg Heart Rate 72 /min Body Temperature 93.0 F Height 68 inches 5'8" 01/14/2021 10:43am BP Systolic Right Arm 145 mmHg BP Diastolic Right Arm 80 mmHg BP Systolic Left Arm 145 mmHg BP Diastolic Left Arm 80 mmHg Heart Rate 70 /min Body Temperature 95.0 F Height 68 inches 5'8" Results Test Acquired Date Facility Test Result H/L Range Note Xray 07/14/2021 Main Office [phone] Carotid Ultrasound Bilateral <pending> Procedures Date Code Description Status 07/14/2021 98578 Duplex Scan Extracranial Arterie s, Complete Bilateral Study Completed Medical Devices Description No Information Available Encounters Description No Information Available Assessments Date Code Description Provider 07/14/2021 I65.23 Occlusion and stenosis of bilate ral carotid arteries Pk Mendes M.D. 07/14/2021 I65.23 Occlusion and stenosis of bilate ral carotid arteries [facility] Plan of Treatment Future Appointment(s):* 01/14/2022 12:30 pm - [facility] at Main Office 08/08/2018 - Alis Don* I65.22 Occlusion and stenosis of left carotid artery * * Follow up:* 1 YEAR OV/US/ CAROTID BILATERAL/ w/LS Functional Status Description No Information Available Mental Status Description No Information Available Referrals Description No Information Available
--- OUTSIDE RECORDS SUMMARY | 2021-08-09 23:10 | CCD | Continuity of Care Document ---
Author Author [facility] Organization Unknown Address [address] [place] [address] Phone Unavailable Care Team Providers Care Roller Cleaner Name Role Phone Natali Downey AUTM [phone] Shane Vance M.D. AUTM [phone] Valentin Ye M.D. AUTM [phone] Ariel Stanford M.D. AUTM [phone] Problems Active Problems Provider Date Carotid artery [...] Uriel Kemp M.D. Onset: 01/14/2016 Essential hypertension Uirel Kemp M.D. Onset: 01/14/20 16 Social History [...] 500-50mcg/Dose Aeros ol 1 puff bid Shane Vance M.D. 06/20/2008 Allopurinol 100mg Tablets 1 P [...] H/L Range Note Xray 07/14/2021 Main Office [phone] Carotid Ultrasound Bilateral <pending> Xray 01/14/2021 Main Office [phone] Carotid Ultrasound Left <pending> Procedures Date Code Description Status 07/14/2021 17144 Duplex Scan Extracranial Arterie s, Complete Bilateral Study Completed 01/14/2021 44705 Duplex Scan Extracranial Arterie s, Follow-Up Or Limited Study Completed Medical Devices Description No Information Available Encounters Description No Information Available Assessments Date Code Description Provider 07/14/2021 I65.23 Occlusion and stenosis of bilate ral carotid arteries [facility] 01/14/2021 I65.22 Occlusion and stenosis of left c arotid artery Pk Mendes M.D. 01/14/2021 I65.22 Occlusion and stenosis of left c arotid artery [facility] Plan of Treatment Future Appointment(s):* 01/14/2022 12:30 pm - [facility] at Main Office 08/08/2018 - Alis Don* I65.22 Occlusion and stenosis of left carotid artery * * Follow up:* 1 YEAR OV/US/ CAROTID BILATERAL/ w/LS Functional Status Description No Information Available Mental Status Description No Information Available Referrals Description No Information Available
--- OUTSIDE RECORDS SUMMARY | 2021-08-09 23:10 | CCD | Continuity of Care Document ---
Author Author Sandro BENNETT PA-C Organization Unknown Address [address] [place] [address], [place] [address] Phone [phone] Care Team Providers Care Clay Pigeon Setter Name Role Phone Shane Vance MD AUTM [phone] Ariel Stanford DO AUTM [phone] Shen Aviles PA-C AUTM [phone] Jackelin Walker MD AUTM [phone] Leandra Xie MD AUTM [phone] Natali Bennett PA-C AUTM [phone] Tylor Cash MD AUTM [phone] Problems Active Problems Provider Date Coronary arteriosclerosis [...] Villagomez Onset: 07/2012 Pure hypercholesterolemia Hiral Corea, FINANCIAL ADVISER-BC Onset: 12/08/2011 Obesity ELLIOT Villa[facility] Onset: 07/18/2014 [...] [facility] Magnesium 1.9 mg/dL 1.6-2.3 PDF [id number] SEE IMAGE CMP 03/15/2021 [facility] Albumin [...] [facility] Magnesium 2.0 mg/dL 1.6-2.3 PDF [id number] SEE IMAGE 1 In accordance with recomme ndations from the NKF-ASN Task force, [facility] is in the process of updating its eGFR calculation to the 2020 CKD-EPI creatinine equation that es timates kidney function without a race variable. 2 [facility] currently reports eGFR in compliance with the current recommendations of the National Kidney Foundation. [facility] will update reporting as new guidelines are published from the NKF-ASN Task force. Procedures Date Code Description Status 07/26/2021 34695 Office/Outpatient Established Lo w MDM 20-29 Min Completed 07/26/2021 43652 ECG 12-Lead Completed 05/05/2021 27260 Office/Outpatient Established Lo w MDM 20-29 Min Completed 05/05/2021 58871 Pacer Programming Single Lead Co mpleted 03/16/2021 81268 Office/Outpatient Established Mo d MDM 30-39 Min Completed 03/16/2021 92985 ECG 12-Lead Completed Medical Devices Description No [...] PA-C I25.1 0 Athscl heart disease of [place] coronary artery w/o ang pctrs I25.2 Old [...] PA-C 03/16/2021 I25.10 Atherosclerotic heart disease of [place] coronary artery with Natali Bennett, PA-C 03/16/2021 I25.2 Old myocardial infarction Natali Bennett, PA-C 03/16/2021 Z95.1 Presence of aortocoronary bypass graft Natali Bennett, PA-C 03/16/2021 I50.32 Chronic diastolic (congestive) h eart failure Natali Bennett, PA-C 03/16/2021 I11.0 Hypertensive heart disease with heart failure Natali Thomasw, PA-C 03/16/2021 I48.3 Typical atrial flutter Natali razoow, PA-C 03/16/2021 I71.2 Thoracic aortic aneurysm, withou t rupture Natali eBnnett, PA-C 03/16/2021 I35.1 Nonrheumatic aortic (valve) insu [...] PA-C 03/16/2021 Z71.3 Dietary counseling and surveilla nce Natali Bennett PA-C Plan of Treatment Future Appointment(s):* 11/03/2021 7:45 am - Natali Bennett PA-C [...]
--- OUTSIDE RECORDS SUMMARY | 2021-08-09 23:10 | CCD | Continuity of Care Document ---
Author Author [facility] Organization Unknown Address [address] [place] [address] Phone Unavailable Care Team Providers Care Housing Officer Name Role Phone Natali Downey AUTM [phone] Shane Vance M.D. AUTM [phone] Valentin Ye M.D. AUTM [phone] Ariel Stanford M.D. AUTM [phone] Problems Active Problems Provider Date Carotid artery [...] H/L Range Note Xray 07/14/2021 Main Office [phone] Carotid Ultrasound Bilateral <pending> Xray 01/14/2021 Main Office [phone] Carotid Ultrasound Left <pending> Procedures Date Code Description Status 07/14/2021 79914 Duplex Scan Extracranial Arterie s, Complete Bilateral Study Completed 01/14/2021 74485 Duplex Scan Extracranial Arterie s, Follow-Up Or [...]
--- OUTSIDE RECORDS SUMMARY | 2021-08-09 23:11 | CCD ---
Author Author [facility] Organization [facility] Address Unknown Phone Unavailable Care Team Providers Care University Administrator Name Role Phone MarthawTahmina PA Unavailable Unavailable Symenow, Tahmina Hurst PA Unavailable Unavailable Symenow, Tahmina Hurst PA Unavailable Unavailable Symenow, Tahmina Hurst PA Unavailable Unavailable Symenow, Tahmina Hurst PA Unavailable Unavailable Symenow, Tahmnia Hurst PA Unavailable Unavailable Symenow, Tahmina Hurst PA Unavailable Unavailable Symenow, Tahmina Hurst PA Unavailable Unavailable Symenow, Tahmina Hurst PA Unavailable Unavailable Symenow, Tahmina Hurst PA Unavailable Unavailable Symenow, Tahmina Hurst PA Unavailable Unavailable Symenow, Tahmina Hurst PA Unavailable Unavailable Symenow, Tahmina Hurst PA Unavailable Unavailable Symenow, Tahmina Hurst PA Unavailable Unavailable Symenow, Tahmina Hurst PA Unavailable Unavailable Symenow, Tahmina Hurst PA Unavailable Unavailable Symenow, Tahmina Hurst PA Unavailable Unavailable Symenow, Tahmina Hurst PA Unavailable Unavailable Symenow, Tahmina Hurst PA Unavailable Unavailable Symenow, Tahmina Hurst PA Unavailable Unavailable Symenow, Tahmina Menendeze PA Unavailable Unavailable Symenow, Tahmina Natali PA Unavailable Unavailable Symenow, Tahmina Natali PA Unavailable Unavailable Symenow, Tahmina Natali PA Unavailable Unavailable Symenow, Tahmina Natali PA Unavailable Unavailable Symenow, Tahmina Natali PA Unavailable Unavailable Symenow, Tahmina Natali PA Unavailable Unavailable Symenow, Tahmina Natali PA Unavailable Unavailable Symenow, Tahmina Natali PA Unavailable Unavailable Symenow, Tahmina Natali PA Unavailable Unavailable Symenow, Tahmina Natali PA Unavailable Unavailable Symenow, Tahmina Natali PA Unavailable Unavailable Symenow, Tahmina Natali PA Unavailable Unavailable Symenow, Tahmina Natali PA Unavailable Unavailable Rechlin, P Ariel DO Unavailable Unavailable Rechlin, P Ariel DO Unavailable Unavailable Rechlin, P Ariel DO Unavailable Unavailable Rechlin, P Ariel DO Unavailable Unavailable Rechlin, P Ariel DO Unavailable Unavailable Rechlin, P Ariel DO Unavailable Unavailable Rechlin, P Ariel DO Unavailable Unavailable Rechlin, P Ariel DO Unavailable Unavailable Rechlin, P Ariel DO Unavailable Unavailable Rechlin, P Ariel DO Unavailable Unavailable Rechlin, P Ariel DO Unavailable Unavailable Rechlin, P Ariel DO Unavailable Unavailable Rechlin, P Ariel DO Unavailable Unavailable Rechlin, P Ariel DO Unavailable Unavailable Rechlin, P Ariel DO Unavailable Unavailable Rechlin, P Ariel DO Unavailable Unavailable Rechlin, P Ariel DO Unavailable Unavailable Rechlin, P Ariel DO Unavailable Unavailable Rechlin, P Ariel DO Unavailable Unavailable Rechlin, P Ariel DO Unavailable Unavailable Rechlin, P Ariel DO Unavailable Unavailable Rechlin, P Ariel DO Unavailable Unavailable Rechlin, P Ariel DO Unavailable Unavailable Rechlin, P Ariel DO Unavailable Unavailable Rechlin, P Ariel DO Unavailable Unavailable Rechlin, P Ariel DO Unavailable Unavailable Rechlin, P Ariel DO Unavailable Unavailable Rechlin, P Ariel DO Unavailable Unavailable Rechlin, P Ariel DO Unavailable Unavailable Rechlin, P Ariel DO Unavailable Unavailable Rechlin, P Ariel DO Unavailable Unavailable Rechlin, P Ariel DO Unavailable Unavailable Rechlin, P Ariel DO Unavailable Unavailable Rechlin, P Ariel DO Unavailable Unavailable Rechlin, P Ariel DO Unavailable Unavailable Rechlin, P Ariel DO Unavailable Unavailable Rechlin, P Ariel DO Unavailable Unavailable Rechlin, P Ariel DO Unavailable Unavailable Rechlin, P Ariel DO Unavailable Unavailable Rechlin, P Ariel DO Unavailable Unavailable Rechlin, P Ariel DO Unavailable Unavailable Rechlin, P Ariel DO Unavailable Unavailable Rechlin, P Ariel DO Unavailable Unavailable Rechlin, P Ariel DO Unavailable Unavailable Rechlin, P Ariel DO Unavailable Unavailable Rechlin, P Ariel DO Unavailable Unavailable Rechlin, P Ariel DO Unavailable Unavailable Rechlin, P Ariel DO Unavailable Unavailable Rechlin, P Ariel DO Unavailable Unavailable Rechlin, P Ariel DO Unavailable Unavailable Rechlin, P Ariel DO Unavailable Unavailable Al Mudamgha, A Leandra MD Unavailable Unavailable Al Mudamgha, A Leandra MD Unavailable Unavailable Al Mudamgha, A Leandra MD Unavailable Unavailable Al Mudamgha, A Leandra MD Unavailable Unavailable Al Mudamgha, A Leandra MD Unavailable Unavailable Al Mudamgha, A Leandra MD Unavailable Unavailable Al Mudamgha, A Ali MD Unavailable Unavailable Al Mudamgha, A Leandra MD Unavailable Unavailable Al Mudamgha, A Leandra MD Unavailable Unavailable Al Mudamgha, A Leandra MD Unavailable Unavailable Al Mudamgha, A Leandra MD Unavailable Unavailable Al Mudamgha, A Leandra MD Unavailable Unavailable Al Mudamgha, A Leandra CARL[place]LE Unavailable Unavailable Al Mudamgha, A Leandra [place] Unavailable Unavailable Al Mudamgha, A Leandra [place] Unavailable Unavailable Al Mudamgha, A Leandra MD Unavailable Unavailable Al Mudamgha, A Leandra MD Unavailable Unavailable Al Mudamgha, A Ali MD Unavailable Unavailable Al Mudamgha, A Leandra [place] Unavailable Unavailable Al Mudamgha, A Leandra [place] Unavailable Unavailable Al Mudamgha, A Leandra [place] Unavailable Unavailable Al Mudamgha, A Leandra MD Unavailable Unavailable Al Mudamgha, A Leandra MD Unavailable Unavailable Al Mudamgha, A Leandra MD Unavailable Unavailable Al Mudamgha, A Leandra [place] Unavailable Unavailable Al Mudamgha, A Leandra [place] Unavailable Unavailable Al Mudamgha, A Leandra MD Unavailable Unavailable Al Mudamgha, A Ali MD Unavailable Unavailable Al Mudamgha, A Ali MD Unavailable Unavailable Al Mudamgha, A Ali MD Unavailable Unavailable Al Mudamgha, A Leandra [place] Unavailable Unavailable Al Mudamgha, A Leandra [place] Unavailable Unavailable Al Mudamgha, A Leandra [place] Unavailable Unavailable Al Mudamgha, A Leandra MD Unavailable Unavailable Al Mudamgha, A Leandra MD Unavailable Unavailable Al Mudamgha, A Ali MD Unavailable Unavailable Al Mudamgha, A Leandra [place] Unavailable Unavailable Al Mudamgha, A Leandra MD Unavailable Unavailable Al Mudamgha, A Ali MD Unavailable Unavailable Al Mudamgha, A Ali MD Unavailable Unavailable Al Mudamgha, A Ali MD Unavailable Unavailable Al Mudamgha, A Ali MD Unavailable Unavailable Al Mudamgha, A Ali MD Unavailable Unavailable Al Mudamgha, A Ali MD Unavailable Unavailable Al Mudamgha, A Ali MD Unavailable Unavailable Al Mudamgha, A Ali MD Unavailable Unavailable Al Mudamgha, A Ali MD Unavailable Unavailable Al Mudamgha, A Ali MD Unavailable Unavailable Al Mudamgha, A Ali MD Unavailable Unavailable Al Mudamgha, A Ali MD Unavailable Unavailable Al Mudamgha, A Ali MD Unavailable Unavailable Al Mudamgha, A Ali MD Unavailable Unavailable Al Mudamgha, A Ali MD Unavailable Unavailable Al Mudamgha, A Ali MD Unavailable Unavailable Al Mudamgha, A Ali MD Unavailable Unavailable Al Mudamgha, A Ali MD Unavailable Unavailable Al Mudamgha, A Ali MD Unavailable Unavailable Al Mudamgha, A Ali MD Unavailable Unavailable Al Mudamgha, A Ali MD Unavailable Unavailable Al Mudamgha, A Ali MD Unavailable Unavailable Al Mudamgha, A Ali MD Unavailable Unavailable Al Mudamgha, A Ali MD Unavailable Unavailable Al Mudamgha, A Ali MD Unavailable Unavailable Al Mudamgha, A Ali MD Unavailable Unavailable Al Mudamgha, A Leandra [place] Unavailable Unavailable Al Mudamgha, A Leandra [place] Unavailable Unavailable Al Mudamgha, A Ali MD Unavailable Unavailable Al Mudamgha, A Ali MD Unavailable Unavailable Al Mudamgha, A Ali MD Unavailable Unavailable Al Mudamgha, A Ali MD Unavailable Unavailable Al Mudamgha, A Ali MD Unavailable Unavailable Al Mudamgha, A Ali MD Unavailable Unavailable Al Mudamgha, A Ali MD Unavailable Unavailable Al Mudamgha, A Ali MD Unavailable Unavailable Al Mudamgha, A Ali MD Unavailable Unavailable Al Mudamgha, A Ali MD Unavailable Unavailable Al Mudamgha, A Leandra [place] Unavailable Unavailable Al Mudamgha, A Leandra [place] Unavailable Unavailable Al Mudamgha, A Ali MD Unavailable Unavailable Al Mudamgha, A Ali MD Unavailable Unavailable Al Mudamgha, A Ali MD Unavailable Unavailable Al Mudamgha, A Ali MD Unavailable Unavailable Al Mudamgha, A Ali MD Unavailable Unavailable Al Mudamgha, A Ali MD Unavailable Unavailable Al Mudamgha, A Leandra [place] Unavailable Unavailable Al Mudamgha, A Leandra [place] Unavailable Unavailable Al Mudamgha, A Leandra [place] Unavailable Unavailable Al Mudamgha, A Leandra [place] Unavailable Unavailable Al Mudamgha, A Leandra [place] Unavailable Unavailable Al Mudamgha, Joseline Leandra [place] Unavailable Unavailable Re-disclosure Warning The records that you are about to access may contain information from federally-assisted alcohol or drug abuse programs. If such information is present, then the following federally mandated warning applies: This information has been disclosed to you from records protected by federal confidentiality rules (42 CFR part 2). The federal rules prohibit you from making any further disclosure of this information unless further disclosure is expressly permitted by the written consent of the person to whom it pertains or as otherwise permitted by 42 CFR part 2. A general authorization for the release of medical or other information is NOT sufficient for this purpose. The Federal rules restrict any use of the information to criminally investigate or prosecute any alcohol or drug abuse patient.The records that you are about to access may contain highly sensitive health information, the redisclosure of which is protected by Article 27-F of the [facility] Public Health law. If you continue you may have access to information: Regarding HIV / AIDS; Provided by facilities licensed or operated by the [facility] Office of Mental Health; or Provided by the [facility] Office for People With Developmental Disabilities. If such information is present, then the following [facility] mandated warning applies: This information has been disclosed to you from confidential records which are protected by state law. State law prohibits you from making any further disclosure of this information without the specific written consent of the person to whom it pertains, or as otherwise permitted by law. Any unauthorized further disclosure in violation of state law may result in a fine or senior living sentence or both. A general authorization for the release of medical or other information is NOT sufficient authorization for further disc losure. Family History Family Member Name Family Member Gender Family Member Status Date o f Status Description Data Source(s) Unknown Unknown Problem [facility] Unknown Male Problem [facility] ([facility]) Unknown Unknown Problem [facility] ([facility] parents Unknown Female Problem [facility] ([facility] Encounters Encounter Providers Location Date Indications Data Source(s ) Outpatient Attender: Natali DAILEY Main Office 07/26/2021 08:30:00 AM EST [facility] ([facility]) Outpatient Attender: Natali DAILEY Main Office 05/05/2021 07:45:00 AM EDT [facility] ([facility]) Outpatient Attender: Ariel Noel/Buena/Brendon/Jarod ndl 04/29/2021 08:30:00 AM EDT [facility] ([facility] ) Outpatient Attender: Ariel Noel/Buena/Brendon/Jarod ndl 04/01/2021 09:00:00 AM EDT [facility] ([facility] Outpatient Attender: Natali DAILEY Main Office 03/16/2021 07:45:00 AM EDT [facility] ([facility]) Outpatient Attender: Ariel Neol/Buena/Brendon/Jarod ndl 02/09/2021 08:30:00 AM EDT [facility] ([facility] ) Outpatient Attender: Leandra Hernandez MD Admitter: Leandra Hernandez MDReferrer: Leandra Hernandez MD [email or web address] 02/01/2021 06:55:00 AM EDT - 02/01/2021 01:47:00 PM EDT [facility] Patient discharged. Outpatient Referrer: Leandra Hernandez MD MOB-MOB.PAT 09/2020 08:30:33 AM EDT - 01/27/2021 08:30:37 AM EDT [facility] [id number] 01/15/2021 08:20:35 AM EDT [facility] Outpatient Attender: Natali DAILEY Main Office 12/31/2020 08:00:00 AM EDT [facility] ([facility]) Outpatient Attender: Leandra Hernandez MD BF-BF 12/30/2020 08:22:4 1 AM EDT [facility] Outpatient Attender: Naatli DAILEY Main Office 12/16/2020 12:45:00 PM EDT [facility] ([facility]) Outpatient Attender: Natali DAILEY Main Office 09/01/2020 07:45:00 AM EST [facility] ([facility]) Immunizations Vaccine Date Status Description Data Source(s) COVID-19 VACC, MRNA(PFIZER)/PF 07/05/2021 12:00:00 AM EST completed [facility] COVID-19 VACCINE Pfizer 10/17/2020 12:00:00 AM EST completed [facility] Vaccine Series Complete: YESThis Data wa s Submitted to [facility] Via [facility]. COVID-19 VACCINE Pfizer 09/26/2020 12:00:00 AM EST completed [facility] Vaccine Series Complete: NOThis Data was Submitted to [facility] Via [employer]. New in 2011. IIV4 06/29/2020 08:06:00 AM EST completed [facility] ([facility], ) Medications Medication Brand Name Start Date Product Form Dose Route Admi nistrative Instructions Pharmacy Instructions Status Indications Reaction Description Data Source(s) valsartan 40 MG Oral Tablet Valsartan 05/05/2021 12:00:00 AM EDT ORAL active [facility] ([facility]) Atenolol 50 MG Oral Tablet Atenolol 05/05/2021 12:00:00 AM EDT ORAL active [facility] ([facility]) apixaban 5 MG Oral Tablet [Eliquis] Eliquis 05/05/2021 12:00:00 AM E DT ORAL active [facility] ([facility]) Aspirin 81 MG Delayed Release Oral Tablet Aspirin Adult Low Dose 05/04/2021 12:00:00 AM EDT ORAL active M [facility]ENT ([facility]) Albuterol 0.83 MG/ML Inhalant Solution Albuterol Sulfate 0 04/08/2021 12:00:00 AM EDT active [facility] ([facility], ) Prednisone 10 MG Oral Tablet Prednisone 04/01/2021 12:00:00 AM EDT ORAL completed [facility] ([facility], ) Lisinopril 2.5 MG Oral Tablet Lisinopril 03/16/2021 12:00:00 AM EDT ORAL completed [facility] ([facility]) Dexmedetomidine HCl 400 mcg in sodium chloride (NS) 0.9 % 10 0 mL infusion 02/01/2021 10:51:08 AM EDT active Intra-Procedure, Intra-op continuous PRN, Starting on Mon02/01/21 at 1051, Until Discontinued [facility] Medication administered onsite lidocaine (PF) (XYLOCAINE-MPF) 1 % injection [id number] 02/2021 10:25:30 AM EDT active As needed, Start ing on Mon02/01/21 at 1025, Intra-Procedure [facility] Medication administered onsite fentaNYL Citrate (PF) (SUBLIMAZE) injection [id number] 02/01/2021 10:16:37 AM EDT active As neede d, Starting on Mon02/01/21 at 1016, Intra-Procedure [facility] Medication administered onsite 2 ML Midazolam 1 MG/ML Injection midazolam (VERSED) in jection midazolam (VERSED) injection 02/01/2021 10:16:24 AM EDT active As needed, Starting on Mon02/01/21 at 1016, Intra-Procedure [facility] Medication administered onsite normal saline flush 0.9 % injection 3 mL [id number] 02/01/2021 08:00:00 AM EDT 3 mL Intravenous active 3 mL , Intravenous, Every 8 hours (scheduled), First dose on Mon02/01/21 at 0800, Pre-op
Rapid push positive pressure flushing shall be performed with a 10 cc normal saline syringe to check the PATENCY of a PIV site prior to any infusion therapy initiation unless resistance is met.
[facility] Medication administered onsite normal saline flush 0.9 % injection 3 mL [id number] 02/01/2021 08:00:00 AM EDT 3 mL Intravenous active 3 mL , Intravenous, Every 8 hours (scheduled), First dose on Mon02/01/21 at 0800, Pre-op
Rapid push positive pressure flushing shall be performed with a 10 cc normal saline syringe to check the PATENCY of a PIV site prior to any infusion therapy initiation unless resistance is met.
[facility] Medication administered onsite Furosemide 20 MG Oral Tablet Furosemide 12/16/2020 12:00:00 AM EDT ORAL active [facility] ([facility]) Covid-19 vaccine, Unspecified 10/17/2020 12:00:00 AM EST completed [facility] ([facility], ) Medication administered onsite Covid-19 vaccine, Unspecified 09/26/2020 12:00:00 AM EST completed [facility] ([facility], ) Medication administered onsite 60 ACTUAT Fluticasone propionate 0.25 MG /ACTUAT / salmeterol 0.05 MG/ACTUAT Dry Powder Inhaler [Advair] Advair Diskus 07/28/2020 12:00:00 AM EST RESPIRATORY active [facility] ([facility], ) Insurance Providers Payer name Policy type / Coverage type Policy ID Covered democrat ID Covered democrat's relationship to [place] Policy [place] Plan Information Special [employer] (WC) Workers Compensation [id number] Self [id number] [employer] [place] Med[employer] Part B [id number] Self Z [id number] [employer] [place] Med[employer] Part B [id number] 2.840.1.76[id number] Self Z [id number] [employer] [place] Medig[employer] Part B [id number] 2.16840.1.965019.3.227.99.991.82722.0 Self Z [id number] [employer] [place] Med[employer] Part B [id number] 2.16840.1.218343.3.227.99.991.02208.0 Self Z [id number] [employer] [place] Med[employer] Part B [id number] 2.840.1.620843.3.227.99.991.04043.0 Self Z [id number] [employer] [place] Med[employer] Part B [id number] 2.0.1.609248.3.227.99.991.18094.0 Self Z [id number] [employer] [place] Medigap Part B [id number] 2.0.1.945715.3.227.99.991.98145.0 Self Z [id number] [employer] [place] PPO 302/307 [id number] SP [id number] BCBS Ppo Commercial [id number] 2.0.1.343589.3.227.99.177.221.0 Self [id number] BCBS Ppo Commercial [id number] Self BCBS Ppo Commercial [id number] 2.0.1.002606.3.227.99.177.221.0 Self [id number] BCBS Ppo Commercial [id number] 2.0.1.325034.3.227.99.177.221.0 Self [id number] BCBS Ppo Commercial [id number] 2.0.1.526522.3.227.99.177.221.0 Self [id number] BCBS Ppo Commercial [id number] Self BCBS Ppo Commercial [id number] 2.0.1.850678.3.227.99.177.221.0 Self [id number] BCBS Ppo Commercial [id number] 2.0.1.364168.3.227.99.177.221.0 Self [id number] [employer] [place] Medigap Part B [id number] 2.0.1.032304.3.227.99.991.21827.0 Self V [id number] [place] Medigap Part B [id number] 2.0.1.367376.3.227.99.991.13997.0 Self V [id number] [employer] [place] Medigap Part B [id number] 2.16.840.1.512227.3.227.99.991.78624.0 Self V [id number] [place] Medigap Part B [id number] 2.16.840.1.705994.3.227.99.991.03725.0 Self V [id number] [place] Medigap Part B [id number] 2.16.840.1.349076.3.227.99.991.96457.0 Self V [id number] [employer] [place] Medigap Part B [id number] 2.16.840.1.638185.3.227.99.991.20357.0 Self V [id number] [place] Medigap Part B [id number] 2.16.840.1.238512.3.227.99.991.54493.0 Self V [id number] [employer] Commercial [id number] Self Aarp Commercial [id number] 2.16.840.1.694482.3.227.99.177.221.0 Self [id number] [facility] [id number] Self Medicare - [place] Medicare Primary [id number] 2.16.840.1.642114.3.22 7.99.177.221.0 Self [id number] Medicare (Part B) Medicare Primary [id number] Self Medicare - NGS Medicare Primary [id number] Self [facility] [id number] Shanita [id number] MEDICARE [id number] SP [id number] A Medicare - [place]GS Medicare Primary [id number] 2.16.840.1.278169.3.22 7.99.177.221.0 Self [id number] Medicare - [place] Medicare Primary [id number] 2.16840.1.740413.3.22 7.99.177.221.0 Self [id number] MEDICARE [id number] Shanita [id number] MEDICARE [id number] Shanita [id number] [employer] Commercial [id number] 2.16.840.1.933810.3.227.99.177.221.0 Self [id number] [employer] Commercial [id number] 2.16.840.1.178757.3.227.99.177.221.0 Self [id number] MEDICARE [id number] SP [id number] Medicare Medicare Primary [id number] Self AARP HEALTH CARE OPTIONS [id number] SP [id number] [employer] Healthcare Options Medigap Part B [id number] 2.16840.1.033456.3.227.99.991.84218.0 Self [id number] [employer] Options Medigap Part B [id number] 2.16840.1.368179.3.227.99.991.57796.0 Self 3 [id number] [employer] Options Medigap Part B [id number] 2.16840.1.091388.3.227.99.991.74273.0 Self [id number] [employer] Options Medigap Part B [id number] 2.16840.1.595243.3.227.99.991.69988.0 Self [id number] [employer] Options Medigap Part B [id number] 2.16840.1.093167.3.227.99.991.15681.0 Self 3 [id number] [employer] Options Medigap Part B [id number] 2.16840.1.484534.3.227.99.991.44427.0 Self 3 [id number] [employer] Options Medigap Part B [id number] 2.16840.1.686330.3.227.99.991.33011.0 Self [id number] [facility] [id number] Shanita [id number] [facility] [id number] Shanita [id number] AARP HEALTH CARE OPTIONS [id number] SP [id number] MEDICARE [id number] SP [id number] A AARP HEALTH CARE OPTIONS [id number] SP [id number] MEDICARE [id number] SP [id number] A MEDICARE COMPLETE [id number] SP [id number] HUMANA PPO [id number] SP [id number] HUMANA PPO [id number] SP [id number] MEDICARE COMPLETE [id number] SP [id number] [facility] Medicare Commercial [id number] ..1.072252.3.22 7.99.177.221.0 Self [id number] [facility] Medicare Commercial [id number] ..1.117795.3.22 7.99.177.221.0 Self [id number] [employer] () Workers Compensation [id number] ..1.484049.3.227.99.991.12237.0 Self [id number] HU[employer] MEDICARE [id number] Shanita [id number] HUMANA MEDICARE [id number] INSURANCE COVID-19 COVID Shanita C OVID INSURANCE COVID-19 [id number] INSURANCE COVID-19 COVID Shanita C OVID [facility] Commercial [id number] ..1.488837.3.227.99.991.01547.0 Self [id number] [facility] ([facility]) Commercial [id number]9.991.24565.0 Self [id number] A[employer]/ Health Care Options Medigap Part B [id number] ..1.993901.3.227.99.177.221.0 Self [id number] Special Funds Workers Compensation [id number] .1.866339.3.227.99.572.72655.0 Self [id number] Aarp Medigap Part B [id number] .0.1.598334.3.227.99.1037.4 6441.0 Self [id number] Medicare Part B Medicare Primary [id number] ..1.485963.3.227.99.1037.36534.0 Self [id number] [facility]) Commercial [id number] 2.16.840.1.141262.3.227.99.991.67046.0 Self [id number] [employer] [facility]) Commercial [id number] 2.16.840.1.626317.3.227.99.991.89386.0 Self [id number] Special Funds Workers Compensation [id number] 2.16.840.1.264009.3.227.99.572.59081.0 Self [id number] [facility] [id number] 2.16.840.1.454357.3.227.99.1037.23691.0 Self [id number] Special Funds Workers Compensation [id number] Self Aarp/ Health Care Options Medigap Part B [id number] 2.16.840.1.070512.3.227.99.177.221.0 Self [id number] [facility]) Commercial [id number] 2.16.840.1.386626.3.227.99.991.69236.0 Self [id number] Aarp Medigap Part B [id number] Self Medicare Part B Medicare Primary [id number] Self UNITED HEALTHCARE [id number] SP [id number] UNITED HEALTHCARE [id number] SP [id number] [facility] Commercial [id number] Self [id number] Special Funds Workers Compensation [id number] Self [id number] [facility] [id number] SP [id number] HUMANA GOLD [id number] SP [id number] SPECIAL FUNDS CONSERVATION-DEW [id number] SP [id number] AARP S [id number] S [id number] MEDICARE P [id number] S [id number] SPECIAL FUNDS P [id number] S [id number] 49 [facility]) Commercial [id number] Self 9 [id number] SELF PAY UNAVAILABLE UNAVAILA BLE SPECIAL FUNDS CONSERVATION-DEW [id number] SP [id number] [employer]/ [employer] Care Options Medigap Part B [id number] Self [id number] [facility] () Workers Compensation [id number] Self 1 [id number] [facility] Commercial [id number] Self [id number] [employer] Workers Compensation [id number] Self [id number] [employer] Workers Compensation [id number] Self [id number] [facility] Commercial [id number] Self [id number] [facility] ([facility]) Commercial [id number] Self 9 [id number] Problems, Conditions, and Diagnoses Code Display Name Description Problem Type Effective Dates Data Source(s) I48.92 Unspecified atrial flutter Unspecified atrial flutter Diagnosis 02/01/2021 06:55:00 AM EDT [facility] U07.1 COVID-19 COVID-19 Diagnosis 01/27/2021 08:30:33 AM ED T [facility] [id number] Cough Cough Problem 04/01/2021 12:00:00 AM ED T [facility] ([facility]) R05 Cough Cough Problem 04/01/2021 12:00:00 AM ED T [facility] ([facility], ) I11.0 Hypertensive heart disease with congesti ve heart failure Hypertensive heart disease with congestive heart failure Problem 03/16/2021 12:00 :00 AM EDT [facility] ([facility]) I50.32 Chronic diastolic heart failure Chronic diastolic hear t failure Problem 03/16/2021 12:00:00 AM EDT [facility] ([facility]) [id number] Sarcoidosis Sarcoidosis Problem 07/28/2020 12:00:00 AM EST [facility] ([facility]) J45.40 Uncomplicated moderate persistent asthma Uncomplicated moderate persistent asthma Problem 07/28/2020 12:00:00 AM EST [facility] ([facility]) D86.0 Sarcoidosis Sarcoidosis Problem 07/28/2020 12:00:00 AM EST [facility] ([facility]) Surgeries/Procedures Procedure Description Date Indications Data Source(s) ECG ROUTINE ECG W/LEAST 12 LDS W/I&R 07/26/2021 12:00: 00 AM EST [facility] ([facility]) OFFICE OUTPATIENT VISIT 15 MINUTES 07/26/2021 12:00:00 AM EST [facility] ([facility]) DUPLEX SCAN EXTRACRANIAL ART COMPL BI STUDY 07/14/2021 12:00:00 AM EST [facility] ([facility]) PROGRAM EVAL IMPLANTABLE IN PRSN 1 LD PACEMAKER 2020 12:00:00 AM EDT [facility] ([facility]) OFFICE OUTPATIENT VISIT 15 MINUTES 05/05/2021 12:00:00 AM EDT [facility] ([facility]) OFFICE OUTPATIENT VISIT 25 MINUTES 04/29/2021 12:00:00 AM EDT [facility] ([facility]) OFFICE OUTPATIENT VISIT 25 MINUTES 04/01/2021 12:00:00 AM EDT [facility] ([facility]) ECG ROUTINE ECG W/LEAST 12 LDS W/I&R 03/16/2021 12:00: 00 AM EDT [facility] ([facility]) OFFICE OUTPATIENT VISIT 25 MINUTES 03/16/2021 12:00:00 AM EDT [facility] ([facility]) Spirometry 02/09/2021 12:00:00 AM EDT M ALESIA ([facility], ) OFFICE OUTPATIENT VISIT 25 MINUTES 02/09/2021 12:00:00 AM EDT MEDJASMYN ([facility], ) EP STUDY <td>EP STUDY</td><td>Routine </td><td>02/01/2021 10:56 AM EDT</td><td> Atrial flutter, unspecified type</td><td> </td> 02/01/2021 10:56:35 AM EDT Atrial flutter, unspecified type [facility] Atrial flutter, unspecified type ECG ROUTINE ECG W/LEAST 12 LDS TRCG ONLY W/O I&R <td>E CG 12- LEAD</td><td>Routine</td><td>02/01/2021 7:34 AM EDT</td><td></td><td></td> 02/01/2021 07:34:47 AM EDT [facility] Duplex Scan Extracranial Arteries, Follow-Up Or Limited Stud y 01/14/2021 12:00:00 AM EDT [facility] ([facility]) ECG ROUTINE ECG W/LEAST 12 LDS W/I&R 12/31/2020 12:00: 00 AM EDT [facility] ([facility]) OFFICE OUTPATIENT VISIT 15 MINUTES 12/31/2020 12:00:00 AM EDT [facility] ([facility]) ECG ROUTINE ECG W/LEAST 12 LDS W/I&R 12/16/2020 12:00: 00 AM EDT [facility] ([facility]) PROGRAM EVAL IMPLANTABLE IN PERSN DUAL LD PACER 2020 12:00:00 AM EDT [facility] ([facility]) OFFICE OUTPATIENT VISIT 25 MINUTES 12/16/2020 12:00:00 AM EDT [facility] ([facility]) INTERROGATION EVAL IN PERSON 1/DUAL/MEDICAL SUPPORT ASSISTANT LEAD PM 2020 12:00:00 AM EST [facility] ([facility]) ECG ROUTINE ECG W/LEAST 12 LDS W/I&R 09/01/2020 12:00: 00 AM EST [facility] ([facility]) DUPLEX SCAN EXTRACRANIAL ART COMPL BI STUDY 07/14/2020 12:00:00 AM EST [facility] ([facility]) Results ID Date Data Source [id number] 07/14/2021 12:43:00 PM EST [facility] ([facility]) Name Value Range Interpretation Code Description Data Melisa rce(s) Supporting Document(s) Carotid Ultrasound Bilateral Laboratory test result [facility] ([facility]) ID Date Data Source [id number] 06/28/2021 10:39:00 AM EDT [facility] ([facility]) Name Value Range Interpretation Code Description Data Melisa rce(s) Supporting Document(s) Magnesium [Mass/volume] in Serum or Plasma 1.9 mg/dL 1.6-2.3 [facility] ([facility]) Laboratory test finding (navigational concept) Laboratory test result [facility] ([facility]) ID Date Data Source [id number] 06/28/2021 10:39:00 AM EDT [facility] ([facility]) Name Value Range Interpretation Code Description Data Melisa rce(s) Supporting Document(s) Glucose 108 mg/dL 65-99 [facility] Creatinine 0.81 mg/dL 0.76-1.27 [facility] ([facility]) Urea nitrogen [Mass/volume] in Serum or Plasma 16 mg/dL 8-27 [facility] ([facility]) eGFR If NonAfricn Am 88 mL/min/1.73 MED[facility] NT ([facility]) eGFR If Africn Am 102 mL/min/1.73 [facility] ([facility]) In accordance with recommendations fro m the NKF-ASN Task force, [facility] is in the process of updating its eGFR calculation to the 2020 CKD-EPI creatinine equation that es timates kidney function without a race variable. Sodium 142 mmol/L 134-144 [facility] ([facility]) Urea nitrogen/Creatinine [Mass Ratio] in Serum or Plasma 20 1 0-24 [facility] ([facility]) Chloride [Moles/volume] in Serum or Plasma 105 mmol/L 96-106 [facility] ([facility]) Potassium [Moles/volume] in Serum or Plasma 4.8 mmol/L 3.5-5.2 [facility] ([facility]) Calcium [Mass/volume] in Serum or Plasma 9.2 mg/dL 8.6-10.2 [facility] Carbon dioxide, total [Moles/volume] in Serum or Plasma 25 mmol/L 20 -29 [facility] ([facility]) ID Date Data Source [id number] 06/29/2021 08:06:00 AM EDT [facility] Name Value Range Interpretation Code Description Data Melisa rce(s) Supporting Document(s) Glucose 108 mg/dL 65-99 Above high normal [facility] BUN 16 mg/dL 8-27 [facility] Creatinine 0.81 mg/dL 0.76-1.27 [facility] eGFR If NonAfricn Am 88 mL/min/1.73 >59 [facility] eGFR If Africn Am 102 mL/min/1.73 >59 [facility] In accordance with recommendations fro m the NKF-ASN Task force, [facility] is in the process of updating its eGFR calculation to the 2020 CKD-EPI creatinine equation that estimates kidney function without a race variable. BUN/Creatinine Ratio 20 10-24 [facility] Sodium 142 mmol/L 134-144 [facility] Potassium 4.8 mmol/L 3.5-5.2 [facility] Chloride 105 mmol/L 96-106 [facility] Carbon Dioxide, Total 25 mmol/L 20-29 [facility] Calcium 9.2 mg/dL 8.6-10.2 [facility] ID Date Data Source [id number] 06/29/2021 08:06:00 AM EDT [facility] Name Value Range Interpretation Code Description Data Melisa rce(s) Supporting Document(s) Magnesium 1.9 mg/dL 1.6-2.3 [facility] ID Date Data Source [id number] 04/19/2021 12:00:00 AM EDT [facility] Name Value Range Interpretation Code Description Data Melisa rce(s) Supporting Document(s) SARS-CoV2 Rapid Antigen Negative [facility] This [facility] and reported by [facility]. ID Date Data Source [id number] 03/15/2021 08:53:00 AM EDT [facility] ([facility]) Name Value Range Interpretation Code Description Data Melisa rce(s) Supporting Document(s) Magnesium [Mass/volume] in Serum or Plasma 2.0 mg/dL 1.6-2.3 [facility] ([facility]) Laboratory test finding (navigational concept) Laboratory test result [facility] ([facility]) ID Date Data Source [id number] 03/15/2021 08:53:00 AM EDT [facility] ([facility]) Name Value Range Interpretation Code Description Data Melisa rce(s) Supporting Document(s) Triglyceride [Mass/volume] in Serum or Plasma 226 mg/dL 0-149 [facility] ([facility]) Cholesterol [Mass/volume] in Serum or Plasma 116 mg/dL 100-199 [facility] ([facility]) Cholesterol in HDL [Mass/volume] in Serum or Plasma 38 mg/dL [facility] ([facility]) Laboratory test finding (navigational concept) 42 mg/dL 0-99 [facility] ([facility]) Laboratory test finding (navigational concept) 36 mg/dL 5-40 [facility] ([facility]) Comment: Laboratory test result [facility] ([facility]) ID Date Data Source [id number] 03/15/2021 08:53:00 AM EDT [facility] ([facility]) Name Value Range Interpretation Code Description Data Melisa rce(s) Supporting Document(s) WBC 8.9 x10E3/uL 3.4-10.8 [facility] ([facility]) Hematocrit [Volume Fraction] of Blood by Automated count 38.8 % 3 7.5-51.0 [facility] ([facility]) RBC 5.18 x10E6/uL 4.14-5.80 [facility] ([facility]) Hemoglobin [Mass/volume] in Blood 11.3 g/dL 13.0-17.7 [facility] ([facility]) Erythrocyte mean corpuscular hemoglobin [Entitic mass] by Automated count 21.8 pg 26.6-33.0 [facility] ([facility]) Erythrocyte mean corpuscular volume [Entitic volume] by Auto mated count 75 fL 79-97 [facility] ([facility]) Erythrocyte mean corpuscular hemoglobin concentration [Mass/volume] by Automated count 29.1 g/dL 31.5-35.7 [facility] Erythrocyte distribution width [Ratio] by Automated count 19.8 % 11.6-15.4 [facility] ([facility]) Platelets [#/volume] in Blood by Automated count 263 x10E3/uL 150-450 [facility] ([facility]) Nucleated erythrocytes/100 leukocytes [Ratio] in Blood by Automated count [facility] ID Date Data Source [id number] 03/15/2021 08:53:00 AM EDT [facility]) Name Value Range Interpretation Code Description Data Melisa rce(s) Supporting Document(s) Glucose 157 mg/dL 65-99 [facility] ([facility]) Urea nitrogen [Mass/volume] in Serum or Plasma 15 mg/dL 8-27 [facility] ([facility]) eGFR If NonAfricn Am 83 mL/min/1.73 [facility] NT ([facility]) Creatinine 0.91 mg/dL 0.76-1.27 [facility] ([facility]) eGFR If Africn Am 96 mL/min/1.73 [facility] ([facility]) [facility] currently reports eGFR in comp liance with the current recommendations of the National Kidney Foundation. [facility] will update reporting as new guidelines are published from the NKF-ASN Task force. Sodium 139 mmol/L 134-144 [facility] ([facility]) Urea nitrogen/Creatinine [Mass Ratio] in Serum or Plasma 16 1 0-24 [facility] ([facility]) Potassium [Moles/volume] in Serum or Plasma 4.7 mmol/L 3.5-5.2 [facility] ([facility]) Chloride [Moles/volume] in Serum or Plasma 102 mmol/L 96-106 [facility] ([facility]) Carbon dioxide, total [Moles/volume] in Serum or Plasma 25 mmol/L 20 -29 [facility] ([facility]) Calcium [Mass/volume] in Serum or Plasma 9.4 mg/dL 8.6-10.2 [facility] ([facility]) Protein [Mass/volume] in Serum or Plasma 7.2 g/dL 6.0-8.5 [facility] ([facility]) Globulin [Mass/volume] in Serum by calculation 2.6 g/dL 1.5-4.5 [facility] ([facility]) A/G Ratio 1.8 1.2-2.2 [facility] ([facility]) Albumin [Mass/volume] in Serum or Plasma 4.6 g/dL 3.7-4.7 [facility] ([facility]) Alkaline phosphatase [Enzymatic activity/volume] in Serum or Plasma 123 IU/L 48-121 [facility] ([facility]) Bilirubin.total [Mass/volume] in Serum or Plasma 0.5 mg/dL 0.0-1.2 [facility] ([facility]) Alanine aminotransferase [Enzymatic activity/volume] in Seru m or Plasma 30 IU/L 0-44 [facility] ([facility]) Aspartate aminotransferase [Enzymatic activity/volume] in Serum or Plasma 23 IU/L 0-40 [facility] ([facility]) ID Date Data Source [id number] 03/15/2021 08:53:00 AM EDT [facility] ([facility]) Name Value Range Interpretation Code Description Data Melisa rce(s) Supporting Document(s) Magnesium Level 2.0 [facility] ([facility]) ID Date Data Source [id number] 03/15/2021 08:53:00 AM EDT [facility] ([facility]) Name Value Range Interpretation Code Description Data Melisa rce(s) Supporting Document(s) Cholesterol 116 120-200 [facility] ([facility]) Triglycerides 226 [facility] ([facility]) HDL 38 40-60 [facility] ([facility]) Cholesterol in LDL [Mass/volume] in Serum or Plasma by calculation 42 [facility] ([facility]) Chol/HDL Ratio Laboratory test result [facility] ([facility]) ID Date Data Source [id number] 03/15/2021 08:53:00 AM EDT [facility] ([facility]) Name Value Range Interpretation Code Description Data Melisa rce(s) Supporting Document(s) White Blood Count 8.9 4.3-10.9 [facility] ([facility]) Platelets 263 130-400 [facility] ([facility]) Red Blood Count 5.18 4.70-6.20 [facility] ([facility]) Hemoglobin 11.3 13.0-17.0 [facility] ([facility]) Hematocrit 38.8 39.0-50.0 [facility] ([facility]) ID Date Data Source [id number] 03/15/2021 08:53:00 AM EDT [facility] ([facility]) Name Value Range Interpretation Code Description Data Melisa rce(s) Supporting Document(s) Albumin [Mass/volume] in Serum or Plasma 4.6 [facility] ([facility]) Alanine aminotransferase [Enzymatic activity/volume] in Serum or Pl asma 30 [facility] ([facility]) Carbon dioxide, total [Moles/volume] in Serum or Plasma 25 [facility] ([facility]) Calcium [Mass/volume] in Serum or Plasma 9.4 [facility] ([facility]) Chloride [Moles/volume] in Serum or Plasma 102 [facility] ([facility]) Potassium [Moles/volume] in Serum or Plasma 4.7 [facility] ([facility]) Alkaline phosphatase [Enzymatic activity/volume] in Serum or Plasma 1 23 [facility] ([facility]) Sodium 139 [facility] ([facility]) Protein [Mass/volume] in Serum or Plasma 7.2 [facility] ([facility]) Aspartate aminotransferase [Enzymatic activity/volume] in Serum or Plasma 23 [facility] ([facility]) Urea nitrogen [Mass/volume] in Serum or Plasma 15 [facility] ([facility]) Glucose 157 70-100 [facility] ([facility]) Creatinine For GFR 0.91 [facility] ([facility]) ID Date Data Source [id number] 03/16/2021 08:06:00 AM EDT [facility] Name Value Range Interpretation Code Description Data Melisa rce(s) Supporting Document(s) Glucose 157 mg/dL 65-99 Above high normal [facility] BUN 15 mg/dL 8-27 [facility] Creatinine 0.91 mg/dL 0.76-1.27 [facility] eGFR If NonAfricn Am 83 mL/min/1.73 >59 [facility] eGFR If Africn Am 96 mL/min/1.73 >59 [facility] currently reports eGFR in comp liance with the current recommendations of the National Kidney Foundation. [facility] will update reporting as new guidelines are published from the NKF-ASN Task force. BUN/Creatinine Ratio 16 10-24 [facility] Sodium 139 mmol/L 134-144 [facility] Potassium 4.7 mmol/L 3.5-5.2 [facility] Chloride 102 mmol/L 96-106 [facility] Carbon Dioxide, Total 25 mmol/L 20-29 [facility] Calcium 9.4 mg/dL 8.6-10.2 [facility] Protein, Total 7.2 g/dL 6.0-8.5 [facility] Albumin 4.6 g/dL 3.7-4.7 [facility] Globulin, Total 2.6 g/dL 1.5-4.5 [facility] A/G Ratio 1.8 1.2-2.2 [facility] Bilirubin, Total 0.5 mg/dL 0.0-1.2 [facility] Alkaline Phosphatase 123 IU/L 48-121 Above high normal [facility] AST (SGOT) 23 IU/L 0-40 [facility] ALT (SGPT) 30 IU/L 0-44 [facility] ID Date Data Source [id number] 03/16/2021 08:06:00 AM EDT [facility] Name Value Range Interpretation Code Description Data Melisa rce(s) Supporting Document(s) WBC 8.9 x10E3/uL 3.4-10.8 [facility] RBC 5.18 x10E6/uL 4.14-5.80 [facility] Hemoglobin 11.3 g/dL 13.0-17.7 Below low normal [facility] Hematocrit 38.8 % 37.5-51.0 [facility] MCV 75 fL 79-97 Below low normal [facility] MCH 21.8 pg 26.6-33.0 Below low normal [facility] MCHC 29.1 g/dL 31.5-35.7 Below low normal [facility] RDW 19.8 % 11.6-15.4 Above high normal [facility] Platelets 263 x10E3/uL 150-450 [facility] ID Date Data Source [id number] 03/16/2021 08:06:00 AM EDT [facility] Name Value Range Interpretation Code Description Data Melisa rce(s) Supporting Document(s) Cholesterol, Total 116 mg/dL 100-199 [facility] Triglycerides 226 mg/dL 0-149 Above high normal [facility] HDL Cholesterol 38 mg/dL >39 Below low normal [facility] VLDL Cholesterol Sánchez 36 mg/dL 5-40 [facility] LDL Chol Calc (NIH) 42 mg/dL 0-99 [facility] ID Date Data Source [id number] 03/16/2021 08:06:00 AM EDT [facility] Name Value Range Interpretation Code Description Data Melisa rce(s) Supporting Document(s) Magnesium 2.0 mg/dL 1.6-2.3 [facility] ID Date Data Source [id number] 02/09/2021 08:17:00 AM EDT [facility] ([facility]) Name Value Range Interpretation Code Description Data Melisa rce(s) Supporting Document(s) FVC-Pred 4.02 L [facility] ([facility]) PDFReport Laboratory test result [facility] ([facility]) FVC-LLN 3.14 L [facility] ([facility]) FVC-Pre 3.37 L [facility] ([facility]) FVC-%Pred-Pre 83 L [facility] ([facility]) Fev1-Pre 2.32 L [facility] ([facility]) Fev1-Pred 2.93 L [facility] ([facility]) Fev1-%Pred-Pre 79 L [facility] ([facility]) Fev1-LLN 2.18 L [facility] ([facility]) Fev6-%Pred-Pre 86 L [facility] ([facility]) Fev6-Pred 3.77 L [facility] ([facility]) Fev6-Pre 3.28 L [facility] ([facility], ) Lmn8tiz-Lsd 69 % [facility] ([facility]) Fev6-LLN 2.92 L [facility] ([facility]) Pyx7szi-Gnhp 73 % [facility] ([facility]) Gtg2rof-Izuq 94 % [facility] ([facility]) Muq4bqh-%Pred-Pre 94 % [facility] ([facility]) Zkg2dko-YFN 63 % [facility] ([facility]) Ukr9jre-%Pred-Pre 103 % [facility] ([facility]) Vzj0nhc-Ybg 97 % [facility] ([facility]) FEFMax-Pred 7.71 L/E/sec [facility] ([facility]) FEFMax-Pre 3.54 L/E/sec [facility] ([facility]) FEFMax-%Pred-Pre 45 L/E/sec [facility] ([facility]) FEFMax-LLN 5.52 L/E/sec [facility] ([facility]) Doz0385-%Pred-Pre 73 L/E/sec [facility] ([facility]) Kdt3160-Wrvk 2.19 L/E/sec [facility] ([facility]) Vfz8335-Btu 1.61 L/E/sec [facility] ([facility]) Wwz3dmj2-Mlts 77 % [facility] ([facility]) Xrj6911-ETN 0.68 L/E/sec [facility] ([facility]) ExpTime-Pre 8.63 sec [facility] ([facility]) Igv8zhe4-Dov 71 % [facility] ([facility]) Nzc6ryz8-%Pred-Pre 91 % [facility] ([facility]) Ggp0kit2-NHQ 68 % [facility] ([facility]) ID Date Data Source [id number] 02/01/2021 11:19:25 AM EDT [facility] Name Value Range Interpretation Code Description Data Melisa rce(s) Supporting Document(s) &PDF [facility] [id number]/[id number]tVoQKHyRBAj pYy [file] AgICAgICAgICAgICAgICAgICAgICAgICAgICAgICAg ICAgICAgICAgICAgICAgICAgICAgICAgICAgICAgICANCiAgICAgICAgICAgICAgICAgICAgICAgICAg ICAgICAgICAgICAgICAgICAgICAgICAgICAgICAgICAgICAgICAgICAgICAgICAgICAgICAgICAgICAg ICAgICAgICAgICAgICANCiAgICAgICAgICAgICAgIC AgICAgICAgICAgICAgICAgICAgICAgICAgICAgICAgICAgICAgICAgICAgICAgICAgICAgICAgICAgIC AgICAgICAgICAgICAgICAgICAgICAgICANCiAgICAgICAgICAgICAgICAgICAgICAgICAgICAgICAgIC AgICAgICAgICAgICAgICAgICAgICAgICAgICAgICAg ICAgICAgICAgICAgICAgICAgICAgICAgICAgICAgICAgICANCiAgICAgICAgICAgICAgICAgICAgICAg ICAgICAgICAgICAgICAgICAgICAgICAgICAgICAgICAgICAgICAgICAgICAgICAgICAgICAgICAgICAg ICAgICAgICAgICAgICAgICANCiAgICAgICAgICAgIC AgICAgICAgICAgICAgICAgICAgICAgICAgICAgICAgICAgICAgICAgICAgICAgICAgICAgICAgICAgIC AgICAgICAgICAgICAgICAgICAgICAgICAgICANCiAgICAgICAgICAgICAgICAgICAgICAgICAgICAgIC AgICAgICAgICAgICAgICAgICAgICAgICAgICAgICAg ICAgICAgICAgICAgICAgICAgICAgICAgICAgICAgICAgICAgICANCiAgICAgICAgICAgICAgICAgICAg ICAgICAgICAgICAgICAgICAgICAgICAgICAgICAgICAgICAgICAgICAgICAgICAgICAgICAgICAgICAg ICAgICAgICAgICAgICAgICAgICANCiAgICAgICAgIC AgICAgICAgICAgICAgICAgICAgICAgICAgICAgICAgICAgICAgICAgICAgICAgICAgICAgICAgICAgIC AgICAgICAgICAgICAgICAgICAgICAgICAgICAgICANCiAgICAgICAgICAgICAgICAgICAgICAgICAgIC AgICAgICAgICAgICAgICAgICAgICAgICAgICAgICAg ICAgICAgICAgICAgICAgICAgICAgICAgICAgICAgICAgICAgICAgICANCjw/bPQmF9efiNZeibN3I5fy Pa9ADh7TIB8tm6RpADZeQOymvrSwBqhGNkLxKUMyTtnGAun6ZUjuXL2DsWUcX9PbC9OrPUcmAZ0CJFZv USIioEZfUWQdSLXhJhI2UPUlNVooRG0UoKBhSGmtVM VtSSPyBdFpYUPfPMRzOJLkLL8WVDBhF691zdGmZt1IFu0CXeWbVF0ysr6EPrVvNQXtFkcZBgy7DGszMV 8EuQFxpQDuZGKbAKXGLlQgM9lrb6PvXrDzCBTERSmlPG3Ol8RloLNmPPm+Ct9GUM5al6CgLXgsZDLwXL 0gkj0AHWuYArNtO2AnbOwvBXnktHymimFgHI4DGAOe JIKhnQGjFXbhJECDSK2MAQxiUAI6IuZglUrtFJ3BWkJkB1NfypPdlXHbDJGuARLTDa0+DQplbmRvYmoN ErLuOYQoa5LiYGh3GS3FIQEsJItzXZ7ZAIFtvA7pLWcxZV5IDxOvBLQaYZLDEzBmF82obYTeFOx4Z5Sk YmVkZGVkRmlsZXMgPDwvTmFtZXMgWyBdDQogID4+ID 4+QBppFV1UYTbeebHkFBUgQj5MZWHyDFJjGN2kZXNeNTJvD5X1hYdaLJUJTbOdC4uqlmsuWX2xMDEnG7 02qKitqpDzPODsWWCjLb4RVFAuVRA8PEXlqDVeYDbtALEGHQklZK1TsEEhWSG3eZ7rYWmkPNBgUBTsW2 xVNeImbJuvWV99fPzsccYnkDQxWLk+Ih8SME8jh7Ys FJf1ulNoGGzeBASsSYblVGAtRIXeASKrRLX6WDL1YQUXIyWoPPNvWZTgSHxnFWVrPHHjih7EUMEhETDn GKtfTaTcTILjGDGhEJixJTGoHPS9KqW6BCZeWAEbDU9YIuSoCYSvQZWiNQhlCBPcZLIkpv0YGJDoAFOs BhE4HBOqEECsLNZlMFwkYUNvYEXoMUUpSCZjIGWbXG 7IDnHdYUToQBSiQrqcSWDlFXHtrt2LZQRkGGPuDvO9ZhUnEZKtIVKuQQfxTHKfTKT2Mld7GRMhQZKeZQ 6GNkNjCEShBLp7MFFsJFYdDQXuhz3XQASpESRtUWX6WtDxRPGlLDWqIJttARUpHSU6WpCdBICpMVMgYE 6JZzPkWXQrHUy7RELiBRAaDRTffp3AOFVwTYFpYZsl KtHgSERqWLMnBQyaPOFjAABzFFT6KXGtNZPhUN4CYlPhCJKpKHXwMEHxSCItOIKbyj6HMPUiSLArYHM7 NEHzVFMrMGBtUArtVTRoOQP9HHH2JLAiBBMiFF5TBqEmBNHyEWEiZLklXVBiUNRjxw0VUQTfOJYaQfl3 TJMsDIVrTGKoWRjsZDPmQZC4VGViLBPsXEPdSP2URi LpQOPsCEi8UdqsVTCvRLBjhp7BuVLuuKkost5MUPxTHz6FcVvoQDMrEPuwIf0hpDAxYhLzFUODEn8Wui VrOREpMUIRONiwSDXjYBNbMWLsAJDbHzXuQSUrDzXoAdW3VGvwTMB2AOHyTpE6ReZ3N8B9HWB8RJYtFW R8MUXvQhF4DDxdHXDgJJR3I3QtNGl+LA6qCHz+Dp5Ip3FklxC1tcVzXDcmXCF7Wo0VZLGTG2VGXa== ID Date Data Source [id number] 02/01/2021 09:36:15 AM EDT [facility] Name Value Range Interpretation Code Description Data Melisa rce(s) Supporting Document(s) EKG [facility] JJXJHh8hNkERNzJue3EhVvWiSYNvGP5srrw4U8J3cKRrV4UqsOChj8hiC4GnV0PfXTBvKIRWSK7WtSDq jb2 [file] Xt97wGQ5ewyS5y63N5c9bZz059uzL+C3N55vnMBvy7 rTFvHvX6caa9546oR0sZh6ok80BXyPovsSrvMfhkq4hc0I2bq7QfYuxYkL68n2/RkgZ4AG/yOj0/Q71b p1DEkXxKZp+AxUxbJLidv0OH9gfZuGqcGIaiFJdg4J3JyoYT2DzIR6yvnRzDUdBCAp6sru170tVd8gbq PV/PThgF1GOsQwezuVBg6KK9tr9hmpfSvipt5ojfAC /E1ods0gs4Y9YxrEQxItVgQCbl8Z4Q8y7XNkEIs8nN042m97rQyhuM7OpulLn38XyjbjN4YIeKZ2yB8Y GxVfqy2mRsqqxkWkzBRB7dj4JmJPc0ZXa7TlmXvLfEHD4CyCMXMQetlQIkCluJo3YlV+w60+Ee92ZKL/ +pDPe3K/mnMtzg+yrD/eo9/p7v76C+xliNTg0ez+APPLIED RESEARCHER [file] [id number] ID Date Data Source [id number] 02/01/2021 06:57:45 AM EDT [facility] INFORMATIONPatient MRN Name Date of Age Gend*PT [id number] Skye Nash 1950 70 years M HOPPT Location Admission Date/Time Visit ID Attending ProviderCV02/01/21 0655 --- Leandra Xie MD([id number]) EPI ID [facility] Admitting Provider [id number] Leandra Xie MD([id number]) History and PhysicalPatient Name: Skye NashB: 1950The patient has a history of Atrial flutter who presents for Atrial flutterablation02/01/2021ast Medical History:Diagnosis Date AAA (abdominal aortic aneurysm) Asthma Coronary artery disease Gout High cholesterol Hypertension Myocardial infarction 2006 OsteoarthritisPast Surgical History:Procedure Laterality Date ABDOMINAL AORTIC ANEURYSM REPAIR 2006 ABDOMINAL HERNIA REPAIR N/A 12/11/2015 Procedure: EXPLORATORY LAPAROSCOPY, OMENTAL PATCHING OF PEPTIC ULCER,EVALUATION FOR INTERNAL HERNIA, DRAIN PLACEMENT; Surgeon: Jackelin Walker MD;Location: [facility]; Service: Bariatric; Laterality: N/A; MD BOOKED @ 1745MD IS AVAIL TF CORONARY ARTERY BYPASS GRAFT 200 x3 vessel GASTRIC BYPASS N/A 07/13/2015 Procedure: GASTRIC BYPASS REGGIE-EN-Y LAPAROSCOPIC, LIVER BIOPSY; Surgeon:Jackelin Walker MD; Location: [facility]; Service: Bariatric; Laterality:N/A; JOINT REPLACEMENT Right knee PANENDOSCOPY N/A 06/16/2015 Procedure: ENDOSCOPY; Surgeon: Sun Pimentel MD; [facility]; Service: General; Laterality: N/A;Medications Prior to AdmissionMedication Sig albuterol (PROVENTIL HFA;VENTOLIN HFA) 108 (90 BASE) MCG/ACT inhaler Inhale 2puffs every 4 (four) hours as needed for shortness of breath allopurinol (ZYLOPRIM) 100 MG tablet Take 100 mg by mouth daily Apixaban (Eliquis) 5 MG TABS tablet Take by mouth 2 (two) times a day atenolol (TENORMIN) 50 MG tablet Take 50 mg by mouth daily atorvastatin (LIPITOR) 80 MG tablet Take 80 mg by mouth daily calcium citrate (CALCITRATE) 950 (200 Ca) MG tablet Take 1 tablet by mouthdaily Daily Pippa (THERAGRAN) per tablet Take 1 tablet by mouth daily digoxin (LANOXIN) 250 MCG tablet Take 250 mcg by mouth daily fluticasone-salmeterol (ADVAIR) 250-50 MCG/DOSE DISKUS Inhale 1 puff 2 (two)times a day furosemide (LASIX) 20 MG tablet Take 20 mg by mouth daily misoprostol (CYTOTEC) 200 MCG tablet Take 200 mcg by mouth 2 (two) times a day nitroglycerin (NITROSTAT) 0.[address] 0.4 mg under the tongue every5 (five) minutes as needed for chest pain potassium chloride SA (K-DUR,KLOR-CON) 20 MEQ tablet Take 20 mEq by mouthdaily vitamin B-12 (CYANOCOBALAMIN) 100 MCG tablet Take 50 mcg by mouth dailyALLERGIES/SENSITIVITIES: Patient has no known drug allergies.Physical ExamGeneral: NADHEENT: NC/ATNeck: JVP FlatLungs: CTAHeart: I5C4Agpuorgcox: This is a 70 years male With a history of Atrial flutter who nowpresents for ablation. The anatomical and physiological basis of typicalversus atypical atrial flutter was described. It was explained to the patientthat only typical flutter could be addressed today and that if the patient wasfound to have atypical atrial flutter then ablation would not be carried out.In addition it was explained that if the patient was in sinus rhythm at the timeof the procedure, induction of atrial flutter was extremely difficult and manytimes empiric isthmus closure is performed. The procedure was explained indetail. The need for sedation was also discussed. The risks including but notlimited to vascular injury, perforation, pneumothorax, infection, tamponade,hematoma formation, stroke, CHB and were all explained. The patient isagreeable to proceed.Signature: Leandra Xie MD, [facility], [facility]ILITYCardiac Electrophysiology and Arrhythmia ServiceDate: February 01, 2021Time: 6:57 AMThis document or parts of this document, were dictated using [employer]. A reasonable attempt at proofreading has been made to minimize errors.Please call with any questions or corrections. Name Value Range Interpretation Code Description Data Melisa rce(s) Supporting Document(s) ID Date Data Source [id number] 01/27/2021 08:40:00 AM EDT [facility] Name Value Range Interpretation Code Description Data Melisa rce(s) Supporting Document(s) SARS coronavirus 2 RNA Not Detected [facility] This lab was ordered by [facility] and reported by [employer] ID Date Data Source [id number] 01/28/2021 01:08:27 PM EDT [facility] Name Value Range Interpretation Code Description Data Melisa rce(s) Supporting Document(s) SARS-COV-2 [facility] Not DetectedReference range: Not Detecte d This nucleic acid amplification test was developed and its performance characteristics determined by [employer]. Nucleic acid amplification tests include RT-PCR and TMA. This test has not been FDA cleared or approved. This test has been authorized by FDA under an Emergency Use Authorization (EUA). This test is only authorized for the duration of time the declaration that circumstances exist justifying the authorization of the emergency use of in vitro diagnostic tests for detection of SARS-CoV-2 virus and/or diagnosis of COVID-19 infection under section 564(b)(1) of the Act, 21 U.S.C. 360bbb-3(b) (1), unless the authorization is terminated or revoked sooner. When diagnostic testing is negative, the possibility of a false negative result should be considered in the context of a patient's recent exposures and the presence of clinical signs and symptoms consistent with COVID- 19. An individual without symptoms of COVID- 19 and who is not shedding S ARS-CoV-2 virus would expect to have a negative (not detected) result in this assay. Performed At: [facility] [place], [place] [id number] Marly Granados PhD Ph:[phone] ID Date Data Source [id number] 01/14/2021 10:46:00 AM EDT [facility] ([facility]) Name Value Range Interpretation Code Description Data Melisa rce(s) Supporting Document(s) Carotid Ultrasound Left Laboratory test result [facility] ([facility]) ID Date Data Source [id number] 12/30/2020 11:48:40 AM EDT [facility] NT INFORMATIONPatient MRN Name Date of Age Gend*PT [id number] Skye Nash 1950 70 years M ---PT Location Admission Date/Time Visit ID Attending Provider --- --- --- --- EPI ID CSN Admitting Provider [id number] ---[facility] [id number], [address] (First Floor)[place], [place] [address]Mn.: Fax: Hatient: Skye Nash : 1950Date: 12/30/20CARDIOLOGY ELECTROPHYSIOLOGY TELEMEDICINE CONSULTPatient was identified by name and date of .Verbal consent was obtained from the patient for this telemedicine visit.Patient is aware of the risks, limitations, and benefits of a telemedicinevisit.This telemedicine assessment was conducted remotely with the assistance ofelectronic communication technology. Telephone Only Codes [id number]: 21-30 minutesof medical discussion: Telephone Only .Subjective:I was asked by Natali Downey to consult on this 70 years male with atrial flutterHISTORY OF PRESENT ILLNESS: Patient is a 70-year-old gentleman with a history ofsinus node dysfunction who has a dual-chamber pacemaker. On December 25 thepatient developed palpitations associated with lower extremity edema. 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 He had his medications adjusted and the patient tells me thatshortly after the flutter terminated. He tells me that today he has nopalpitations. His heart rate is 70 bpm and the lower extremity edema has fullyresolved. He denies any chest pain he denies any shortness of breath.Past Medical History:Diagnosis Date AAA (abdominal aortic aneurysm) Asthma Coronary artery disease Gout High cholesterol Hypertension Myocardial infarction 2007 OsteoarthritisFAMILY HISTORY: family history includes COPD in his father and mother; Coronaryartery disease in his father; Heart disease in his father.SOCIAL HISTORY: reports that he has quit smoking. His smoking use includedcigarettes. He has a 11.00 pack-year smoking history. He has never usedsmokeless tobacco. He reports current alcohol use. He reports that he does notuse drugs.REVIEW OF SYSTEMS: Constitutional: Denies syncope. Denies fever, chills, weightloss or gain. Eyes: Denies blindness. Cardiovascular: Denies palpitations.Respiratory: Denies shortness of breath and dyspnea on exertion. GI: Deniesabdominal pain, nausea or vomiting. : Denies dysuria or hematuria.Musculoskeletal: Negative lower extremity edema. Integumentary: Denies rash.Neurologic: Denies seizures. Psychiatric: Denies depression or anxiety.Hematologic: Denies anemia.Current Outpatient Medications: albuterol (PROVENTIL HFA;VENTOLIN HFA) 108 (90 BASE) MCG/ACT inhaler, Inhale2 puffs every 4 (four) hours as needed for shortness of breath , Disp: , Rfl: allopurinol (ZYLOPRIM) 100 MG tablet, Take 100 mg by mouth daily, Disp: ,Rfl: Apixaban (Eliquis) 5 MG TABS tablet, Take by mouth 2 (two) times a day, Disp:, Rfl: atenolol (TENORMIN) 50 MG tablet, Take 50 mg by mouth daily, Disp: , Rfl: atorvastatin (LIPITOR) 80 MG tablet, Take 80 mg by mouth daily, Disp: , Rfl: calcium citrate (CALCITRATE) 950 (200 Ca) MG tablet, Take 1 tablet by mouthdaily, Disp: , Rfl: Daily Pippa (THERAGRAN) per tablet, Take 1 tablet by mouth daily, Disp: , Rfl: digoxin (LANOXIN) 250 MCG tablet, Take 250 mcg by mouth daily, Disp: , Rfl: fluticasone-salmeterol (ADVAIR) 250-50 MCG/DOSE DISKUS, Inhale 1 puff 2 (two)times a day , Disp: , Rfl: furosemide (LASIX) 20 MG tablet, Take 20 mg by mouth daily, Disp: , Rfl: misoprostol (CYTOTEC) 200 MCG tablet, Take 200 mcg by mouth 2 (two) times aday, Disp: , Rfl: nitroglycerin (NITROSTAT) 0.4 MG SL tablet, Place 0.4 mg under the tongueevery 5 (five) minutes as needed for chest pain, Disp: , Rfl: potassium chloride SA (K-DUR,KLOR-CON) 20 MEQ tablet, Take 20 mEq by mouthdaily, Disp: , Rfl: vitamin B-12 (CYANOCOBALAMIN) 100 MCG tablet, Take 50 mcg by mouth daily,Disp: , Rfl:ALLERGIES: has No Known Drug Allergies.PREVIOUSLY USED ANTI ARRHYTHMIC DRUGS: Digoxin and atenololPOORLY TOLERATED MEDICATIONS: NoneObjective:PHYSICAL EXAMINATION: Deferred due to Telemedicine encounterSTUDIES REVIEWED: Referral records including EKGsEKG: Deferred due to telemedicine encounter.Assessment/Plan:ASSESSMENT/PLAN: This is a 70 years male With a history of atrial flutter. Ihad a long discussion with the patient regarding the anatomical andphysiological basis of typical versus atypical a trial flutter. Specifically therole of the right atrial isthmus in the wu and maintenance of typicalatrial flutter was explained. A rate controlling strategy with medicationsincluding digoxin, beta blockers and calcium channel blockers was discussed.The potential risk of developing a tachycardia induced cardiomyopathy withoutgood rate control was explained.During our visit, the patient and I had a comprehensive discussion regardingarrhythmia management using principles of shared decision making. This includeda discussion of antiarrhythmic medications including Class 1a , Class 1C, andClass III agents as well as both Class II and IV agents. I reviewed thepotentially life- threatening side effects of these medications, including butnot limited to fatal tachyarrhythmias, bradycardia, hypotension, heart block,pulmonary toxicity, liver toxicity as well as thyroid abnormalities. We alsoreviewed the required monitoring of these medications.EP guided therapy was explained in detail. The risks including but not limitedto vascular injury, perforation, tamponade, CHB, need for emergent open heartsurgery and were all explained. I told the patient that if they hadisthmus dependent flutter then complete closure of the right atrial isthmus withachievement of bidirectional block would result in a 90 to 95% long-term freedomfrom typical atrial flutter. If the patient had a successful ablation, thenanticoagulation could theoretically be discontinued 4 weeks post ablation. Bustero explained to the patient that in many cases they will present on the day ofthe procedure in sinus rhythm. If that were to be the case then induction ofatrial flutter would be attempted, although the ability to induce atrial flutteris considered low. Therefore if the patient presents in sinus rhythm and isnotinducible, then empiric isthmus ablation would be performed. After reviewingall the options, the patient clearly understands the issues related to ourdiscussion.At this point the patient would like to proceed with ablation. He will bescheduled on an elective basisThis document or parts of this document, were dictated using [employer]. A reasonable attempt at proofreading has been made to minimize errors.Please call with any questions or corrections.I have spent 25 minutes with the patient, counseling/coordinating the patient'scare. I discussed the diagnosis of atrial flutter and discussed Managementoption risks and benefitsFollow Up atrial flutter ablationSignature: Leandra Xie MD, [facility], [facility]ILITYCardiac Electrophysiology and Arrhythmia ServiceDate: December 30, 2020Time: 11:41 AMThis d ocument or parts of this document, were dictated using [employer]. A reasonable attempt at proofreading has been made to minimize errors.Please call with any questions or corrections. Name Value Range Interpretation Code Description Data Melisa rce(s) Supporting Document(s) ID Date Data Source [id number] 12/30/2020 08:38:00 AM EDT [facility] ([facility]) Name Value Range Interpretation Code Description Data Melisa rce(s) Supporting Document(s) Magnesium [Mass/volume] in Serum or Plasma 1.9 mg/dL 1.6-2.3 [facility] ([facility]) Laboratory test finding (navigational concept) Laboratory test result [facility] ([facility]) ID Date Data Source [id number] 12/30/2020 08:38:00 AM EDT [facility] ([facility]) Name Value Range Interpretation Code Description Data Melisa rce(s) Supporting Document(s) WBC 7.1 x10E3/uL 3.4-10.8 [facility] ([facility]) RBC 5.02 x10E6/uL 4.14-5.80 [facility] ([facility]) Hemoglobin [Mass/volume] in Blood 10.5 g/dL 13.0-17.7 [facility] ([facility]) Hematocrit [Volume Fraction] of Blood by Automated count 38.0 % 3 7.5-51.0 [facility] ([facility]) Erythrocyte mean corpuscular volume [Entitic volume] by Auto mated count 76 fL 79-97 [facility] ([facility]) Erythrocyte mean corpuscular hemoglobin [Entitic mass] by Automated count 20.9 pg 26.6-33.0 [facility] ([facility]) Erythrocyte mean corpuscular hemoglobin concentration [Mass/volume] by Automated count 27.6 g/dL 31.5-35.7 [facility] ([facility]) Erythrocyte distribution width [Ratio] by Automated count 16.0 % 11.6-15.4 [facility] ([facility]) Platelets [#/volume] in Blood by Automated count 317 x10E3/uL 150-450 [facility] ([facility]) Nucleated erythrocytes/100 leukocytes [Ratio] in Blood by Automated count Laboratory test result [facility] ([facility]) ID Date Data Source [id number] 12/30/2020 08:38:00 AM EDT [facility] ([facility]) Name Value Range Interpretation Code Description Data Melisa rce(s) Supporting Document(s) Urea nitrogen [Mass/volume] in Serum or Plasma 19 mg/dL 8-27 [facility] ([facility]) Glucose 185 mg/dL 65-99 [facility] Creatinine 1.02 mg/dL 0.76-1.27 [facility] ([facility]) eGFR If NonAfricn Am 73 mL/min/1.73 [facility] NT ([facility]) eGFR If Africn Am 84 mL/min/1.73 [facility] ([facility]) [facility] currently reports eGFR in comp liance with the current recommendations of the National Kidney Foundation. [facility] will update reporting as new guidelines are published from the NKF-ASN Task force. Urea nitrogen/Creatinine [Mass Ratio] in Serum or Plasma 19 1 0-24 [facility] ([facility]) Sodium 140 mmol/L 134-144 [facility] ([facility]) Potassium [Moles/volume] in Serum or Plasma 4.6 mmol/L 3.5-5.2 [facility] ([facility]) Chloride [Moles/volume] in Serum or Plasma 103 mmol/L 96-106 [facility] ([facility]) Carbon dioxide, total [Moles/volume] in Serum or Plasma 23 mmol/L 20 -29 [facility] ([facility]) Calcium [Mass/volume] in Serum or Plasma 9.3 mg/dL 8.6-10.2 [facility] ([facility]) ID Date Data Source [id number] 12/31/2020 06:05:00 AM EDT [facility] Name Value Range Interpretation Code Description Data Melisa rce(s) Supporting Document(s) WBC 7.1 x10E3/uL 3.4-10.8 [facility] RBC 5.02 x10E6/uL 4.14-5.80 [facility] Hemoglobin 10.5 g/dL 13.0-17.7 Below low normal [facility] Hematocrit 38.0 % 37.5-51.0 [facility] MCV 76 fL 79-97 Below low normal [facility] MCH 20.9 pg 26.6-33.0 Below low normal [facility] MCHC 27.6 g/dL 31.5-35.7 Below low normal [facility] RDW 16.0 % 11.6-15.4 Above high normal [facility] Platelets 317 x10E3/uL 150-450 [facility] ID Date Data Source [id number] 12/31/2020 06:05:00 AM EDT [facility] Name Value Range Interpretation Code Description Data Melisa rce(s) Supporting Document(s) Glucose 185 mg/dL 65-99 Above high normal [facility] BUN 19 mg/dL 8-27 [facility] Creatinine 1.02 mg/dL 0.76-1.27 [facility] eGFR If NonAfricn Am 73 mL/min/1.73 >59 [facility] eGFR If Africn Am 84 mL/min/1.73 >59 [facility] currently reports eGFR in comp liance with the current recommendations of the National Kidney Foundation. [facility] will update reporting as new guidelines are published from the NKF-ASN Task force. BUN/Creatinine Ratio 19 10-24 [facility] Sodium 140 mmol/L 134-144 [facility] Potassium 4.6 mmol/L 3.5-5.2 [facility] Chloride 103 mmol/L 96-106 [facility] Carbon Dioxide, Total 23 mmol/L 20-29 [facility] Calcium 9.3 mg/dL 8.6-10.2 [facility] ID Date Data Source [id number] 12/31/2020 06:05:00 AM EDT [facility] Name Value Range Interpretation Code Description Data Melisa rce(s) Supporting Document(s) Magnesium 1.9 mg/dL 1.6-2.3 [facility] ID Date Data Source [id number] 08/31/2020 09:43:00 AM EST [facility] ([facility]) Name Value Range Interpretation Code Description Data Melisa rce(s) Supporting Document(s) Magnesium [Mass/volume] in Serum or Plasma 2.1 mg/dL 1.6-2.3 [facility] ([facility]) Laboratory test finding (navigational concept) Laboratory test result [facility] ([facility]) ID Date Data Source [id number] 08/31/2020 09:43:00 AM EST [facility] ([facility]) Name Value Range Interpretation Code Description Data Melisa rce(s) Supporting Document(s) WBC 8.3 x10E3/uL 3.4-10.8 [facility] ([facility]) RBC 4.82 x10E6/uL 4.14-5.80 [facility] ([facility]) Hematocrit [Volume Fraction] of Blood by Automated count 35.9 % 3 7.5-51.0 [facility] ([facility]) Hemoglobin [Mass/volume] in Blood 10.8 g/dL 13.0-17.7 [facility] ([facility]) Erythrocyte mean corpuscular volume [Entitic volume] by Auto mated count 75 fL 79-97 [facility] ([facility]) Erythrocyte mean corpuscular hemoglobin [Entitic mass] by Automated count 22.4 pg 26.6-33.0 [facility] ([facility]) Erythrocyte distribution width [Ratio] by Automated count 16.2 % 11.6-15.4 [facility] ([facility]) Erythrocyte mean corpuscular hemoglobin concentration [Mass/volume] by Automated count 30.1 g/dL 31.5-35.7 [facility] ([facility]) Platelets [#/volume] in Blood by Automated count 250 x10E3/uL 150-450 [facility] ([facility]) Nucleated erythrocytes/100 leukocytes [Ratio] in Blood by Automated count Laboratory test result [facility] ([facility]) ID Date Data Source [id number] 08/31/2020 09:43:00 AM EST [facility] ([facility]) Name Value Range Interpretation Code Description Data Melisa rce(s) Supporting Document(s) Glucose 140 mg/dL 65-99 [facility] ([facility]) Creatinine 0.87 mg/dL 0.76-1.27 [facility] [facility] eGFR If NonAfricn Am 86 mL/min/1.73 MEDE NT ([facility]) Urea nitrogen [Mass/volume] in Serum or Plasma 15 mg/dL 8-27 [facility]ENT ([facility]) Urea nitrogen/Creatinine [Mass Ratio] in Serum or Plasma 17 1 0-24 [facility] ([facility]) eGFR If Africn Am 100 mL/min/1.73 [facility] ([facility]) Potassium [Moles/volume] in Serum or Plasma 4.7 mmol/L 3.5-5.2 [facility] ([facility]) Sodium 143 mmol/L 134-144 [facility] ([facility]) Calcium [Mass/volume] in Serum or Plasma 9.2 mg/dL 8.6-10.2 [facility] ([facility]) Carbon dioxide, total [Moles/volume] in Serum or Plasma 25 mmol/L 20 -29 [facility] ([facility]) Chloride [Moles/volume] in Serum or Plasma 105 mmol/L 96-106 [facility] ([facility]) ID Date Data Source [id number] 09/01/2020 06:05:00 AM EST [facility] Name Value Range Interpretation Code Description Data Melisa rce(s) Supporting Document(s) WBC 8.3 x10E3/uL 3.4-10.8 [facility] RBC 4.82 x10E6/uL 4.14-5.80 [facility] Hemoglobin 10.8 g/dL 13.0-17.7 Below low normal [facility] Hematocrit 35.9 % 37.5-51.0 Below low normal [facility] MCV 75 fL 79-97 Below low normal [facility] MCH 22.4 pg 26.6-33.0 Below low normal [facility] MCHC 30.1 g/dL 31.5-35.7 Below low normal [facility] RDW 16.2 % 11.6-15.4 Above high normal [facility] Platelets 250 x10E3/uL 150-450 [facility] ID Date Data Source [id number] 09/01/2020 06:05:00 AM EST [facility] Name Value Range Interpretation Code Description Data Melisa rce(s) Supporting Document(s) Glucose 140 mg/dL 65-99 Above high normal [facility] BUN 15 mg/dL 8-27 [facility] Creatinine 0.87 mg/dL 0.76-1.27 [facility] eGFR If NonAfricn Am 86 mL/min/1.73 >59 [facility] eGFR If Africn Am 100 mL/min/1.73 >59 [facility] BUN/Creatinine Ratio 17 10-24 [facility] Sodium 143 mmol/L 134-144 [facility] Potassium 4.7 mmol/L 3.5-5.2 [facility] Chloride 105 mmol/L 96-106 [facility] Carbon Dioxide, Total 25 mmol/L 20-29 [facility] Calcium 9.2 mg/dL 8.6-10.2 [facility] ID Date Data Source [id number] 09/01/2020 06:05:00 AM EST [facility] Name Value Range Interpretation Code Description Data Melisa rce(s) Supporting Document(s) Magnesium 2.1 mg/dL 1.6-2.3 [facility] ID Date Data Source [id number] 07/28/2020 08:59:00 AM EST MEDENT ([facility]) Name Value Range Interpretation Code Description Data Melisa rce(s) Supporting Document(s) FVC-Pred 4.02 L MEDENT ([facility]) PDFReport Laboratory test result MEDENT ([facility]) FVC-Pre 3.31 L [facility] ([facility]) FVC-%Pred-Pre 82 L MEDENT ([facility]) FVC-LLN 3.14 L [facility] ([facility]) Fev1-Pred 2.93 L [facility] ([facility]) Fev1-LLN 2.18 L [facility] ([facility]) Fev1-%Pred-Pre 76 L MEDENT ([facility]) Fev1-Pre 2.25 L [facility] ([facility]) Fev6-Pre 3.26 L [facility] ([facility]) Fev6-%Pred-Pre 86 L [facility] ([facility]) Fev6-Pred 3.77 L [facility] ([facility]) Dcg5lge-Zxy 68 % [facility] ([facility]) Fev6-LLN 2.92 L [facility] ([facility]) Cvc5wpa-Lpjv 73 % [facility] ([facility]) Zvp2jvf-%Pred-Pre 92 % [facility] ([facility]) Qnk9edp-Hcdi 94 % [facility] ([facility]) Vqo5qjj-Niu 99 % [facility] ([facility]) Xfo6geq-PAO 63 % [facility] ([facility]) FEFMax-Pred 7.71 L/E/sec MED[facility] ([facility]) Evn3rna-%Pred-Pre 105 % [facility] ([facility]) FEFMax-Pre 3.64 L/E/sec MED[facility] ([facility]) [id number] 2.19 L/E/sec MED[facility] ([facility]) FEFMax-%Pred-Pre 47 L/E/sec [facility] ([facility]) FEFMax-LLN 5.52 L/E/sec [facility] ([facility]) Prg9699-%Pred-Pre 66 L/E/sec [facility] ([facility]) [id number]-SLM 0.68 L/E/sec MED[facility] ([facility]) Xzl6857-Erq 1.45 L/E/sec [facility] ([facility]) ExpTime-Pre 6.78 sec MED[facility] ([facility]) Uhg4xky1-Tdy 69 % [facility] ([facility]) Heh5xso3-Bjwa 77 % [facility] ([facility]) Kok6lvk9-%Pred-Pre 88 % [facility] ([facility]) Nmd0axq5-HAC 68 % [facility] ([facility]) ID Date Data Source [id number] 07/14/2020 02:04:00 PM EST [facility] ([facility]) Name Value Range Interpretation Code Description Data Melisa rce(s) Supporting Document(s) Carotid Ultrasound Bilateral Laboratory test result [facility] ([facility]) Procedure Social History Code Duration Value Status Description Data Source(s ) Smoking 07/26/2021 12:00:00 AM EST Patient is a former smoker completed Patient is a former smoker [facility] ([facility]) Smoking 04/29/2021 12:00:00 AM EDT Patient is a former smoker completed Patient is a former smoker [facility] ([facility], ) Alcohol intake 02/01/2021 12:00:00 AM EDT Current drinker of al cohol (finding) completed Current drinker of alcohol (finding) [facility] Alcohol intake 12/28/2020 12:00:00 AM EDT Current drinker of al cohol (finding) completed Current drinker of alcohol (finding) [facility] Vital Signs ID Date Data Source UNK Name Value Range Interpretation Code Description Data Source(s) Respiratory rate 16 /min 16 /min [facility] ( [facility]) Body weight 227.00 [lb_av] 227.00 [lb_av] MEDEN T ([facility]) Body height 68 [in_i] 68 [in_i] [facility] ([facility]) 5'8" Body mass index (BMI) [Ratio] 34.5 kg/m2 34.5 k g/m2 [facility] ([facility]) Heart rate 76 /min 76 /min [facility] ([facility]) Regular Diastolic blood pressure 74 mm[Hg] 74 mm[Hg] [facility] ([facility]) sitting, regular cuff Systolic blood pressure 128 mm[Hg] 128 mm[Hg] M EDENT ([facility]) sitting, regular cuff Body height 68 [in_i] 68 [in_i] [facility] ([facility]) 5'8" Systolic blood pressure 131 mm[Hg] 131 mm[Hg] M EDENT ([facility]) Diastolic blood pressure 75 mm[Hg] 75 mm[Hg] [facility] ([facility]) Systolic blood pressure 120 mm[Hg] 120 mm[Hg] M EDENT ([facility]) Diastolic blood pressure 73 mm[Hg] 73 mm[Hg] [facility] ([facility]) Heart rate 72 /min 72 /min [facility] ([facility] Body temperature 93.0 [degF] 93.0 [degF] [facility] ([facility]) Heart rate 80 /min 80 /min [facility] ([facility]) Irregular Systolic blood pressure 128 mm[Hg] 128 mm[Hg] M EDENT ([facility]) sitting, regular cuff Diastolic blood pressure 74 mm[Hg] 74 mm[Hg] [facility] ([facility]) sitting, regular cuff Body weight 220.00 [lb_av] 220.00 [lb_av] MEDEN T ([facility]) Body mass index (BMI) [Ratio] 33.4 kg/m2 33.4 k g/m2 [facility] ([facility]) Body height 68 [in_i] 68 [in_i] [facility] ([facility]) 5'8" Respiratory rate 16 /min 16 /min MED[facility] ( [facility]) Systolic blood pressure 124 mm[Hg] 124 mm[Hg] M EDENT ([facility]) Diastolic blood pressure 62 mm[Hg] 62 mm[Hg] [facility] Heart rate 73 /min 73 /min [facility] ([facility]) Oxygen saturation in Arterial blood by Pulse oximetry 98 % 98 % [facility] ([facility]) Body height 68 [in_i] 68 [in_i] [facility] ([facility]) 5'8" Body weight 224.00 [lb_av] 224.00 [lb_av] MEDEN T ([facility]) Body mass index (BMI) [Ratio] 34.1 kg/m2 34.1 k g/m2 [facility] ([facility]) [place] body weight 154 [lb_av] 154 [lb_av] MEDEN T ([facility]) Body weight 101.606 kg 101.606 kg [facility] ([facility]) Body surface area Derived from formula 2.14 m2 2.14 m2 [facility] ([facility]) [place] body weight 154 [lb_av] 154 [lb_av] MEDEN T ([facility]) Diastolic blood pressure 62 mm[Hg] 62 mm[Hg] [facility] ([facility]) Body height 68 [in_i] 68 [in_i] [facility] 5'8" Body weight 223.00 [lb_av] 223.00 [lb_av] MEDEN T ([facility]) Body mass index (BMI) [Ratio] 33.9 kg/m2 33.9 k g/m2 [facility] ([facility]) Body surface area Derived from formula 2.14 m2 2.14 m2 [facility] ([facility]) Body weight 101.153 kg 101.153 kg [facility] ([facility]) Systolic blood pressure 96 mm[Hg] 96 mm[Hg] [facility] Heart rate 70 /min 70 /min [facility] ([facility]) Oxygen saturation in Arterial blood by Pulse oximetry 96 % 96 % [facility] ([facility]) Body temperature 98.5 [degF] 98.5 [degF] [facility] ([facility]) Respiratory rate 16 /min 16 /min [facility] Diastolic blood pressure 66 mm[Hg] 66 mm[Hg] [facility] sitting, regular cuff Heart rate 72 /min 72 /min [facility] ([facility]) Regular Systolic blood pressure 126 mm[Hg] 126 mm[Hg] [facility] sitting Diastolic blood pressure 64 mm[Hg] 64 mm[Hg] [facility] sitting Body mass index (BMI) [Ratio] 33.1 kg/m2 33.1 k g/m2 [facility] Body weight 218.00 [lb_av] 218.00 [lb_av] MEDEN T ([facility]) Body height 68 [in_i] 68 [in_i] [facility]) 5'8" Systolic blood pressure 128 mm[Hg] 128 mm[Hg] [facility] sitting, regular cuff Oxygen saturation in Arterial blood by Pulse oximetry 95 % 95 % [facility] ([facility]) Body height 68 [in_i] 68 [in_i] [facility] 5'8" Body weight 238.00 [lb_av] 238.00 [lb_av] MEDEN T ([facility]) Body mass index (BMI) [Ratio] 36.2 kg/m2 36.2 k g/m2 [facility] ([facility]) [place] body weight 154 [lb_av] 154 [lb_av] MEDEN T ([facility]) Body weight 107.957 kg 107.957 kg [facility] ([facility]) Body surface area Derived from formula 2.20 m2 2.20 m2 [facility] ([facility]) Systolic blood pressure 140 mm[Hg] 140 mm[Hg] EDENT ([facility]) Diastolic blood pressure 72 mm[Hg] 72 mm[Hg] [facility] ([facility]) Heart rate 70 /min 70 /min [facility] ([facility]) Oxygen saturation in Arterial blood by Pulse oximetry 95 % 95 % [facility] ([facility]) Body height 68 [in_i] 68 [in_i] [facility] ([facility]) 5'8" Body weight 238.00 [lb_av] 238.00 [lb_av] [facility] Body mass index (BMI) [Ratio] 36.2 kg/m2 36.2 k g/m2 [facility] ([facility]) [place] body weight 154 [lb_av] 154 [lb_av] [facility] Body weight 107.957 kg 107.957 kg [facility] ([facility]) Body surface area Derived from formula 2.20 m2 2.20 m2 [facility] ([facility]) Systolic blood pressure 139 mm[Hg] 139 mm[Hg] [facility] Diastolic blood pressure 81 mm[Hg] 81 mm[Hg] [facility] Heart rate 70 /min 70 /min [facility] Body temperature 36.56 Jyothi 36.56 Jyothi [facility] Respiratory rate 12 /min 12 /min [facility] Oxygen saturation in Arterial blood by Pulse oximetry 97 % 97 % [facility] Body height 172.7 cm 172.7 cm [facility] Body weight 101.606 kg 101.606 kg [facility] Body mass index (BMI) [Ratio] 34.06 kg/m2 34.06 kg/m2 [facility] Systolic blood pressure 145 mm[Hg] 145 mm[Hg] M EDENT ([facility]) Diastolic blood pressure 80 mm[Hg] 80 mm[Hg] [facility] ([facility]) Systolic blood pressure 145 mm[Hg] 145 mm[Hg] M EDENT ([facility]) Diastolic blood pressure 80 mm[Hg] 80 mm[Hg] [facility] ([facility]) Heart rate 70 /min 70 /min [facility] ([facility] Body temperature 95.0 [degF] 95.0 [degF] [facility] ([facility]) Body height 68 [in_i] 68 [in_i] [facility] ([facility]) 5'8" Body weight 221.00 [lb_av] 221.00 [lb_av] MEDEN T ([facility]) Body mass index (BMI) [Ratio] 33.6 kg/m2 33.6 k g/m2 [facility] ([facility]) Respiratory rate 16 /min 16 /min [facility] ( [facility]) Systolic blood pressure 128 mm[Hg] 128 mm[Hg] M EDENT ([facility]) sitting, regular cuff Heart rate 72 /min 72 /min [facility] ([facility]) Regular Diastolic blood pressure 72 mm[Hg] 72 mm[Hg] [facility] ([facility]) sitting, regular cuff Body height 68 [in_i] 68 [in_i] [facility] ([facility]) 5'8" Body weight 233.00 [lb_av] 233.00 [lb_av] MEDEN T ([facility]) Body height 68 [in_i] 68 [in_i] [facility] ([facility]) 5'8" Body mass index (BMI) [Ratio] 35.4 kg/m2 35.4 k g/m2 [facility] ([facility]) Heart rate 116 /min 116 /min [facility] ([facility]) Regular Respiratory rate 16 /min 16 /min [facility] ( [facility]) Systolic blood pressure 132 mm[Hg] 132 mm[Hg] M EDENT ([facility]) sitting, regular cuff Diastolic blood pressure 86 mm[Hg] 86 mm[Hg] [facility] ([facility]) sitting, regular cuff Body height 68 [in_i] 68 [in_i] [facility] ([facility]) 5'8" Body mass index (BMI) [Ratio] 34.4 kg/m2 34.4 k g/m2 [facility] ([facility]) Body weight 226.00 [lb_av] 226.00 [lb_av] MEDEN T ([facility]) Heart rate 68 /min 68 /min [facility] ([facility]) Regular Respiratory rate 16 /min 16 /min [facility] ( [facility]) Systolic blood pressure 126 mm[Hg] 126 mm[Hg] M EDENT ([facility]) sitting, regular cuff Diastolic blood pressure 74 mm[Hg] 74 mm[Hg] [facility] ([facility]) sitting, regular cuff Systolic blood pressure 126 mm[Hg] 126 mm[Hg] [facility] sitting Diastolic blood pressure 70 mm[Hg] 70 mm[Hg] [facility] sitting Body height 68 [in_i] 68 [in_i] [facility] ([facility]) 5'8" Body weight 231.00 [lb_av] 231.00 [lb_av] MEDEN T ([facility]) Body mass index (BMI) [Ratio] 35.1 kg/m2 35.1 k g/m2 [facility] ([facility]) [place] body weight 154 [lb_av] 154 [lb_av] MED[facility] T ([facility]) Body weight 104.782 kg 104.782 kg [facility] ([facility]) Body surface area Derived from formula 2.17 m2 2.17 m2 [facility] ([facility]) Systolic blood pressure 142 mm[Hg] 142 mm[Hg] [facility] Diastolic blood pressure 80 mm[Hg] 80 mm[Hg] [facility] ([facility], ) Heart rate 90 /min 90 /min [facility] ([facility], ) Oxygen saturation in Arterial blood by Pulse oximetry 96 % 96 % [facility] ([facility], ) Systolic blood pressure 140 mm[Hg] 140 mm[Hg] [facility]) Diastolic blood pressure 70 mm[Hg] 70 mm[Hg] [facility] ([facility]) Systolic blood pressure 140 mm[Hg] 140 mm[Hg] [facility] ([facility]) Diastolic blood pressure 68 mm[Hg] 68 mm[Hg] [facility] ([facility]) Body height 68 [in_i] 68 [in_i] [facility] ([facility]) 5'8" Body weight 223.00 [lb_av] 223.00 [lb_av] MEDEN T ([facility]) Body weight 101.153 kg 101.153 kg [facility] ([facility]) Body mass index (BMI) [Ratio] 33.9 kg/m2 33.9 k g/m2 [facility] ([facility]) Patient Treatment Plan of Care Planned Activity Planned Date Details Description Data Source (s) normal saline flush 0.9 % injection 3 mL 02/01/2021 08:00:00 AM EDT [facility] normal saline flush 0.9 % injection 3 mL 02/01/2021 08:00:00 AM EDT [facility]
--- OUTSIDE RECORDS SUMMARY | 2021-08-09 23:18 | CCD ---
Author Author [facility] Organization [facility] Address Unknown Phone Unavailable Care Team Providers Care Mental Health Program Specialist Name Role Phone MarthawTahmina PA Unavailable Unavailable Symenow, Tahmina Hurst PA Unavailable Unavailable Symenow, Tahmina Hurst PA Unavailable Unavailable Symenow, Tahmina Hurst PA Unavailable Unavailable Symenow, Tahmina Hurst PA Unavailable Unavailable Symenow, Tahmina Hurst PA Unavailable Unavailable Symenow, Tahmina Hurst PA Unavailable Unavailable Symenow, Tahmina Hurst PA Unavailable Unavailable Symenow, Tahmina Hurst PA Unavailable Unavailable Symenow, Tahmina Hurst PA Unavailable Unavailable Symenow, Tahmina uHrst PA Unavailable Unavailable Symenow, Tahmina Hurst PA [...] is protected by Article 27-F of the [facility] Public Health law. If you continue you may have access to information: Regarding HIV / AIDS; Provided by facilities licensed or operated by the [facility] Office of Mental Health; or Provided by the [facility] Office for People With Developmental Disabilities. If such information is present, then the following [facility] mandated warning applies: This information has been [...] law may result in a fine or long-term sentence or both. A general authorization for [...] 07/26/2021 08:30:00 AM EST [facility] ([facility]) Outpatient Attender: Natali DAILEY Main Office 05/05/2021 07:45:00 AM EDT [facility] ([facility]) Outpatient Attender: Ariel Noel/Camden/Brendon/Jarod ndl 04/29/2021 08:30:00 AM EDT [facility] ([facility] Outpatient Attender: Ariel Noel/[place]/Brendon/Jarod ndl 04/01/2021 09:00:00 AM EDT [facility] ([facility] Outpatient Attender: Natali DAILEY Main Office 03/16/2021 07:45:00 AM EDT [facility] ([facility]) Outpatient Attender: Ariel Noel/[place]/Brendon/Jarod ndl 02/09/2021 08:30:00 AM EDT [facility] ([facility] Outpatient Attender: Leandra Hernandez MD Admitter: Leandra Hernandez MDReferrer: Leandra Hernandez MD [email or web address] 02/01/2021 06:55:00 AM EDT - 02/01/2021 01:47:[address] [facility] Patient discharged. Outpatient Referrer: Leandra Hernandez MD MOB-MOB.PAT 09/2020 08:30:33 AM EDT - 01/27/2021 08:30:[address] [facility] [id number] 01/15/2021 08:20:[address] [facility] Outpatient Attender: Natali DAILEY Main Office 12/31/2020 08:00:00 AM EDT [facility] ([facility]) Outpatient Attender: Leandra Hernandez MD BF-BF 12/30/2020 08:22:[address] [facility] Outpatient Attender: Natali DAILEY Main Office 12/16/2020 12:45:00 PM EDT [facility] ([facility]) Outpatient Attender: Natali DAILEY Main Office 09/01/2020 07:45:00 AM EST [facility] ([facility]) Immunizations Vaccine Date Status Description Data Source(s) COVID-19 VACC, MRNA(PFIZER)/PF 07/05/2021 12:00:00 AM EST completed [facility] COVID-19 VACCINE Pfizer 10/17/2020 12:00:00 AM EST completed [facility] Vaccine Series Complete: YESThis Data wa s Submitted to [facility]. COVID-19 VACCINE Pfizer 09/26/2020 12:00:00 AM EST completed [facility] Vaccine Series Complete: NOThis Data was Submitted to [facility]. New in 2011. IIV4 06/29/2020 08:06:00 AM EST completed [facility] ([facility], ) Medications Medication Brand Name Start Date Product Form Dose Route Admi nistrative Instructions Pharmacy Instructions Status Indications Reaction Description Data Source(s) valsartan 40 MG Oral Tablet Valsartan 05/05/2021 12:00:00 AM EDT ORAL active [facility] ([facility] Atenolol 50 MG Oral Tablet Atenolol 05/05/2021 12:00:00 AM EDT ORAL active [facility] ([facility]) apixaban 5 MG Oral Tablet [Eliquis] Eliquis 05/05/2021 12:00:00 AM E DT ORAL active [facility] ([facility] Aspirin 81 MG Delayed Release Oral Tablet Aspirin Adult Low Dose 05/04/2021 12:00:00 AM EDT ORAL active M EDENT ([facility]) Albuterol 0.83 MG/ML Inhalant Solution Albuterol Sulfate 0 04/08/2021 12:00:00 AM EDT active [facility] ([facility], ) Prednisone 10 MG Oral Tablet Prednisone 04/01/2021 12:00:00 AM EDT ORAL completed [facility] ([facility], ) Lisinopril 2.5 MG Oral Tablet Lisinopril 03/16/2021 12:00:00 AM EDT ORAL completed [facility] ([facility] Dexmedetomidine HCl 400 mcg in sodium chloride (NS) 0.9 % 10 0 mL infusion 02/01/2021 10:51:08 AM EDT active Intra-Procedure, Intra-op continuous PRN, Starting on Mon02/01/21 at 1051, Until Discontinued [facility] Medication administered onsite lidocaine (PF) (XYLOCAINE-MPF) 1 % injection [id number] 02/2021 10:25:30 AM EDT active As needed, Start ing on Mon02/01/21 at 1025, Intra-Procedure [facility] Medication administered onsite fentaNYL Citrate (PF) (SUBLIMAZE) injection [id number] 02/01/2021 10:16:37 AM EDT active As neede d, Starting on Mon02/01/21 at 1016, Intra-Procedure [facility] Medication administered onsite 2 ML Midazolam 1 MG/ML Injection midazolam (VERSED) in jection midazolam (VERSED) injection 02/01/2021 10:16:24 AM EDT active As needed, Starting on Mon02/01/21 at 1016, Intra-Procedure [facility] Medication administered onsite normal saline flush 0.9 % injection 3 mL [id number] 02/01/2021 08:00:00 AM EDT 3 mL Intravenous active 3 mL , Intravenous, Every 8 hours (scheduled), First dose on Mon02/01/21 at 0800, Pre-op
Rapid push positive pressure flushing shall be performed with a 10 cc normal saline syringe to check the PATENCY of a PIV site prior to any infusion therapy initiation unless resistance is met.
[facility] Medication administered onsite normal saline flush 0.9 % injection 3 mL [id number] 02/01/2021 08:00:00 AM EDT 3 mL Intravenous active 3 mL , Intravenous, Every 8 hours (scheduled), First dose on Mon02/01/21 at 0800, Pre-op
Rapid push positive pressure flushing shall be performed with a 10 cc normal saline syringe to check the PATENCY of a PIV site prior to any infusion therapy initiation unless resistance is met.
[facility] Medication administered onsite Furosemide 20 MG Oral Tablet Furosemide 12/16/2020 12:00:00 AM EDT ORAL active [facility] ([facility]) Covid-19 vaccine, Unspecified 10/17/2020 12:00:00 AM EST completed [facility] ([facility], ) Medication administered onsite Covid-19 vaccine, Unspecified 09/26/2020 12:00:00 AM EST completed [facility] ([facility], ) Medication administered onsite 60 ACTUAT Fluticasone propionate 0.25 MG /ACTUAT / salmeterol 0.05 MG/ACTUAT Dry Powder Inhaler [Advair] Advair Diskus 07/28/2020 12:00:00 AM EST RESPIRATORY active [facility] ([facility], ) Insurance Providers Payer name Policy type / Coverage type Policy ID Covered democrat ID Covered democrat's relationship to angeles Policy [place] Plan Information Special Funds-D[employer] (WC) Workers Compensation [id number] Self [id number] [place] Medig[place] Part B [id number] Self Z [id number] BS [place] Med[employer]ap Part B [id number] 2.840.1.52[id number] Self Z [id number] BS [place] Medigap Part B [id number] 2.16840.1.430824.3.227.99.991.25143.0 Self Z [id number] BS [place] Medigap Part B [id number] 2.16840.1.615473.3.227.99.991.77718.0 Self Z [id number] BS [place] Medigap Part B [id number] 2.840.1.114164.3.227.99.991.01084.0 Self Z [id number] BS [place] Medigap Part B [id number] 2.0.1.529442.3.227.99.991.81483.0 Self Z [id number] BS [place] Medigap Part B [id number] 2.0.1.891972.3.227.99.991.74768.0 Self Z [id number] [employer] [place] PPO 302/[id number] SP [id number] BCBS Ppo Commercial [id number] 2.0.1.543910.3.227.99.177.221.0 Self [id number] BCBS Ppo Commercial [id number] Self BCBS Ppo Commercial [id number] 2.0.1.316283.3.227.99.177.221.0 Self [id number] BCBS Ppo Commercial [id number] 2.0.1.034663.3.227.99.177.221.0 Self [id number] BCBS Ppo Commercial [id number] 2.0.1.571589.3.227.99.177.221.0 Self [id number] BCBS Ppo Commercial [id number] Self BCBS Ppo Commercial [id number] 2.0.1.216989.3.227.99.177.221.0 Self [id number] BCBS Ppo Commercial [id number] 2.0.1.568874.3.227.99.177.221.0 Self [id number] BS [place] Medigap Part B [id number] 2.0.1.641638.3.227.99.991.67490.0 Self V [id number] BS [place] Medigap Part B [id number] 2.0.1.235097.3.227.99.991.72133.0 Self V [id number] BS [place] Medigap Part B [id number] 2.16.840.1.330843.3.227.99.991.82503.0 Self V [id number] BS [place] Medigap Part B [id number] 2.16.840.1.112566.3.227.99.991.39070.0 Self V [id number] BS [place] Medigap Part B [id number] 2.16.840.1.871653.3.227.99.991.42136.0 Self V [id number] BS [place] Medigap Part B [id number] 2.16.840.1.969076.3.227.99.991.69806.0 Self V [id number] BS [place] Medigap Part B [id number] 2.16.840.1.322086.3.227.99.991.01985.0 Self V [id number] [employer] Commercial [id number] Self Aarp Commercial [id number] 2.16.840.1.903496.3.227.99.177.221.0 Self [id number] [id number] Self Medicare - NGS Medicare Primary [id number] 2.16.840.1.428362.3.22 7.99.177.221.0 Self [id number] Medicare (Part B) Medicare Primary [id number] Self Medicare - NGS Medicare Primary [id number] Self [facility] [id number] Shanita [id number] MEDICARE [id number] SP [id number] A Medicare - [place] Medicare Primary [id number] 2.16.840.1.896199.3.22 7.99.177.221.0 Self [id number] Medicare - [place] Medicare Primary [id number] 2.16840.1.363591.3.22 7.99.177.221.0 Self [id number] MEDICARE [id number] Shanita [id number] MEDICARE [id number] Shanita [id number] [employer] Commercial [id number] 2.16.840.1.705007.3.227.99.177.221.0 Self [id number] [employer] Commercial [id number] 2.16.840.1.252796.3.227.99.177.221.0 Self [id number] MEDICARE [id number] SP [id number] Medicare Medicare Primary [id number] Self AARP HEALTH CARE OPTIONS [id number] SP [id number] [employer] Healthcare Options Medigap Part B [id number] 2.16840.1.033788.3.227.99.991.47862.0 Self 3 [id number] [employer] Healthcare Options Medigap Part B [id number] 2.16840.1.184048.3.227.99.991.30475.0 Self 3 [id number] [employer] Healthcare Options Medigap Part B [id number] 2.16840.1.244392.3.227.99.991.12457.0 Self 3 [id number] [employer] Healthcare Options Medigap Part B [id number] 2.16840.1.691015.3.227.99.991.57770.0 Self 3 [id number] [employer] Healthcare Options Medigap Part B [id number] 2.16840.1.114347.3.227.99.991.86129.0 Self 3 [id number] [employer] Healthcare Options Medigap Part B [id number] 2.16840.1.169240.3.227.99.991.25352.0 Self 3 [id number] [employer] Healthcare Options Medigap Part B [id number] 2.16840.1.373430.3.227.99.991.89981.0 Self [id number] [facility] [id number] Shanita [id number] [facility] [id number] Shanita [id number] AARP HEALTH CARE OPTIONS [id number] SP [id number] MEDICARE [id number] SP [id number] A AARP HEALTH CARE OPTIONS [id number] SP [id number] MEDICARE [id number] SP [id number] A MEDICARE COMPLETE [id number] SP [id number] HUMANA PPO [id number] SP [id number] HUMANA PPO [id number] SP [id number] MEDICARE COMPLETE [id number] SP [id number] [facility] Medicare Commercial [id number] ..1.528608.3.22 7.99.177.221.0 Self [id number] [facility] Medicare Commercial [id number] ..1.605369.3.22 7.99.177.221.0 Self [id number] [employer] () Workers Compensation [id number] ..1.325784.3.227.99.991.18082.0 Self [id number] HUMANA MEDICARE [id number] Shanita [id number] HUMANA MEDICARE [id number] INSURANCE COVID-19 COVID Shanita C OVID INSURANCE COVID-19 [id number] xOVID [id number] INSURANCE COVID-19 COVID Shan[address] C OVID [facility] ([facility]) Commercial [id number] ..1.942369.3.227.99.991.77729.[id number] [facility] ([facility]) Commercial [id number]9.991.64200.0 Self [id number] A[employer]/ Health Care Options Medigap Part B [id number] ..1.712535.3.227.99.177.221.0 Self [id number] Special Funds Workers Compensation [id number] .1.887890.3.227.99.572.30519.0 Self [id number] Aarp Medigap Part B [id number] .0.1.847456.3.227.99.1037.4 6441.0 Self [id number] Medicare Part B Medicare Primary [id number] ..1.163150.3.227.99.1037.05786.0 Self [id number] [facility]) Commercial [id number] 2.16.840.1.867709.3.227.99.991.98902.0 Self [id number] [employer] [facility]) Commercial [id number] 2.16.840.1.228062.3.227.99.991.03626.0 Self [id number] Special Funds Workers Compensation [id number] 2.16.840.1.727076.3.227.99.572.04733.0 Self [id number] [facility] [id number] 2.16.840.1.740866.3.227.99.1037.39097.0 Self [id number] Special Funds Workers Compensation [id number] Self Aarp/ Health Care Options Medigap Part B [id number] 2.16.840.1.699340.3.227.99.177.221.0 Self [id number] [facility]) Commercial [id number] 2.16.840.1.499928.3.227.99.991.12915.0 Self [id number] Aarp Medigap Part B [id number] Self Medicare Part B Medicare Primary [id number] Self UNITED HEALTHCARE [id number] SP [id number] UNITED HEALTHCARE [id number] SP [id number] [facility] Commercial [id number] Self [id number] Special Funds Workers Compensation [id number] Self [id number] [facility] [id number] SP [id number] HUMANA GOLD [id number] SP [id number] SPECIAL FUNDS CONSERVATION-DEW [id number] SP [id number] AARP S [id number] S [id number] MEDICARE P [id number] S [id number] SPECIAL FUNDS P [id number] S [id number] [facility]) Commercial [id number] 2.160.1.698028.3.227.99.991.05162.0 Self [id number] SELF PAY UNAVAILABLE UNAVAILA BLE SPECIAL FUNDS CONSERVATION-DEW [id number] SP [id number] Aarp/ Health Care Options Medigap Part B [id number] 2.16.0.1.543883.3.227.99.177.221.0 Self [id number] [facility] () Workers Compensation [id number] 2.16840.1.304846.3.227.99.991.45080.0 Self [id number] [facility]/Medicare Solu Commercial [id number] 2.160.1.433326.3.227.99.1767.84721.0 Self [id number] Special Funds Workers Compensation [id number] 2.160.1.641062.3.227.99.572.76163.0 Self [id number] Special Funds Workers Compensation [id number] 2.16840.1.881897.3.227.99.572.07222.0 Self [id number] [facility]/Medicare Solu Commercial [id number] 2.16840.1.743[id number] [facility] ([facility]) Commercial [id number] [id number] Self [id number] Problems, Conditions, and Diagnoses Code Display Name Description Problem Type Effective Dates Data Source(s) I48.92 Unspecified atrial flutter Unspecified atrial flutter Diagnosis 02/01/2021 06:55:[address] [facility] U07.1 COVID-19 COVID-19 Diagnosis 01/27/2021 08:30:[address] [facility] [id number] Cough Cough Problem 04/01/2021 12:00:00 AM ED T [facility] ([facility]) R05 Cough Cough Problem 04/01/2021 12:00:00 AM ED T [facility] ([facility], ) I11.0 Hypertensive heart disease with congesti ve heart failure Hypertensive heart disease with congestive heart failure Problem 03/16/2021 12:00 :00 AM EDT [facility] ([facility]) I50.32 Chronic diastolic heart failure Chronic diastolic hear t failure Problem 03/16/2021 12:00:00 AM EDT [facility] ([facility]) [id number] Sarcoidosis Sarcoidosis Problem 07/28/2020 12:00:00 AM EST [facility] ([facility]) J45.40 Uncomplicated moderate persistent asthma Uncomplicated moderate persistent asthma Problem 07/28/2020 12:00:00 AM EST [facility] ([facility]) D86.0 Sarcoidosis Sarcoidosis Problem 07/28/2020 12:00:00 AM EST [facility] ([facility]) Surgeries/Procedures Procedure Description Date Indications Data Source(s) ECG ROUTINE ECG W/LEAST 12 LDS W/I&R 07/26/2021 12:00: 00 AM EST [facility] ([facility]) OFFICE OUTPATIENT VISIT 15 MINUTES 07/26/2021 12:00:00 AM EST [facility] ([facility]) DUPLEX SCAN EXTRACRANIAL ART COMPL BI STUDY 07/14/2021 12:00:00 AM EST [facility] ([facility]) PROGRAM EVAL IMPLANTABLE IN PRSN 1 LD PACEMAKER 2020 12:00:00 AM EDT [facility] ([facility]) OFFICE OUTPATIENT VISIT 15 MINUTES 05/05/2021 12:00:00 AM EDT [facility] ([facility]) OFFICE OUTPATIENT VISIT 25 MINUTES 04/29/2021 12:00:00 AM EDT [facility] ([facility]) OFFICE OUTPATIENT VISIT 25 MINUTES 04/01/2021 12:00:00 AM EDT [facility] ([facility]) ECG ROUTINE ECG W/LEAST 12 LDS W/I&R 03/16/2021 12:00: 00 AM EDT [facility] ([facility]) OFFICE OUTPATIENT VISIT 25 MINUTES 03/16/2021 12:00:00 AM EDT [facility] ([facility]) Spirometry 02/09/2021 12:00:00 AM EDT M ALESIA ([facility], ) OFFICE OUTPATIENT VISIT 25 MINUTES 02/09/2021 12:00:00 AM EDT MEDJASMYN ([facility], ) EP STUDY <td>EP STUDY</td><td>Routine </td><td>02/01/2021 10:56 AM EDT</td><td> Atrial flutter, unspecified type</td><td> </td> 02/01/2021 10:56:35 AM EDT Atrial flutter, unspecified type [facility] Atrial flutter, unspecified type ECG ROUTINE ECG W/LEAST 12 LDS TRCG ONLY W/O I&R <td>E CG 12- LEAD</td><td>Routine</td><td>02/01/2021 7:34 AM EDT</td><td></td><td></td> 02/01/2021 07:34:[address] [facility] Duplex Scan Extracranial Arteries, Follow-Up Or Limited Stud y 01/14/2021 12:00:00 AM EDT [facility] ([facility]) ECG ROUTINE ECG W/LEAST 12 LDS W/I&R 12/31/2020 12:00: 00 AM EDT [facility] ([facility]) OFFICE OUTPATIENT VISIT 15 MINUTES 12/31/2020 12:00:00 AM EDT [facility] ([facility]) ECG ROUTINE ECG W/LEAST 12 LDS W/I&R 12/16/2020 12:00: 00 AM EDT [facility] ([facility]) PROGRAM EVAL IMPLANTABLE IN PERSN DUAL LD PACER 2020 12:00:00 AM EDT [facility] ([facility]) OFFICE OUTPATIENT VISIT 25 MINUTES 12/16/2020 12:00:00 AM EDT [facility] ([facility]) INTERROGATION 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 IN 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 2020 12:00:00 AM EST [facility] ([facility]) ECG ROUTINE ECG W/LEAST 12 LDS W/I&R 09/01/2020 12:00: 00 AM EST [facility] ([facility]) DUPLEX SCAN EXTRACRANIAL ART COMPL BI STUDY 07/14/2020 12:00:00 AM EST [facility] ([facility]) Results ID Date Data Source [id number] 07/14/2021 12:43:00 PM EST [facility] ([facility]) Name Value Range Interpretation Code Description Data Melisa rce(s) Supporting Document(s) Carotid Ultrasound Bilateral Laboratory test result [facility] ([facility]) ID Date Data Source [id number] 06/28/2021 10:39:00 AM EDT [facility] ([facility] Name Value Range Interpretation Code Description Data Melisa rce(s) Supporting Document(s) Magnesium [Mass/volume] in Serum or Plasma 1.9 mg/dL 1.6-2.3 [facility] ([facility]) Laboratory test finding (navigational concept) Laboratory test result [facility] ([facility]) ID Date Data Source [id number] 06/28/2021 10:39:00 AM EDT [facility] ([facility] Name Value Range Interpretation Code Description Data Melisa rce(s) Supporting Document(s) Glucose 108 mg/dL 65-99 [facility] Creatinine 0.81 mg/dL 0.76-1.27 [facility] ([facility]) Urea nitrogen [Mass/volume] in Serum or Plasma 16 mg/dL 8-27 [facility] ([facility]) eGFR If NonAfricn Am 88 mL/min/1.73 MEDE NT ([facility]) eGFR If Africn Am 102 mL/min/1.73 [facility] ([facility]) In accordance with recommendations fro m the NKF-ASN Task force, [facility] is in the process of updating its eGFR calculation to the 2020 CKD-EPI creatinine equation that es timates kidney function without a race variable. Sodium 142 mmol/L 134-144 [facility] ([facility]) Urea nitrogen/Creatinine [Mass Ratio] in Serum or Plasma 20 1 0-24 [facility] ([facility]) Chloride [Moles/volume] in Serum or Plasma 105 mmol/L 96-106 [facility] ([facility]) Potassium [Moles/volume] in Serum or Plasma 4.8 mmol/L 3.5-5.2 [facility] ([facility]) Calcium [Mass/volume] in Serum or Plasma 9.2 mg/dL 8.6-10.2 [facility] Carbon dioxide, total [Moles/volume] in Serum or Plasma 25 mmol/L 20 -29 [facility] ([facility]) ID Date Data Source [id number] 06/29/2021 08:06:00 AM EDT [facility] Name Value Range Interpretation Code Description Data Melisa rce(s) Supporting Document(s) Glucose 108 mg/dL 65-99 Above high normal [facility] BUN 16 mg/dL 8-27 [facility] Creatinine 0.81 mg/dL 0.76-1.27 [facility] eGFR If NonAfricn Am 88 mL/min/1.73 >59 [facility] eGFR If Africn Am 102 mL/min/1.73 >59 [facility] In accordance with recommendations fro m the NKF-ASN Task force, [facility] is in the process of updating its eGFR calculation to the 2020 CKD-EPI creatinine equation that estimates kidney function without a race variable. BUN/Creatinine Ratio 20 10-24 [facility] Sodium 142 mmol/L 134-144 [facility] Potassium 4.8 mmol/L 3.5-5.2 [facility] Chloride 105 mmol/L 96-106 [facility] Carbon Dioxide, Total 25 mmol/L 20-29 [facility] Calcium 9.2 mg/dL 8.6-10.2 [facility] ID Date Data Source [id number] 06/29/2021 08:06:00 AM EDT [facility] Name Value Range Interpretation Code Description Data Melisa rce(s) Supporting Document(s) Magnesium 1.9 mg/dL 1.6-2.3 [facility] ID Date Data Source [id number] 04/19/2021 12:00:00 AM EDT [facility] Name Value Range Interpretation Code Description Data Melisa rce(s) Supporting Document(s) SARS-CoV2 Rapid Antigen Negative [facility] This [facility] and reported by [facility]. ID Date Data Source [id number] 03/15/2021 08:53:00 AM EDT [facility] ([facility]) Name Value Range Interpretation Code Description Data Melisa rce(s) Supporting Document(s) Magnesium [Mass/volume] in Serum or Plasma 2.0 mg/dL 1.6-2.3 [facility] ([facility]) Laboratory test finding (navigational concept) Laboratory test result [facility] ([facility]) ID Date Data Source [id number] 03/15/2021 08:53:00 AM EDT [facility] ([facility]) Name Value Range Interpretation Code Description Data Melisa rce(s) Supporting Document(s) Triglyceride [Mass/volume] in Serum or Plasma 226 mg/dL 0-149 [facility] ([facility]) Cholesterol [Mass/volume] in Serum or Plasma 116 mg/dL 100-199 [facility] ([facility]) Cholesterol in HDL [Mass/volume] in Serum or Plasma 38 mg/dL [facility] ([facility]) Laboratory test finding (navigational concept) 42 mg/dL 0-99 [facility] ([facility]) Laboratory test finding (navigational concept) 36 mg/dL 5-40 [facility] ([facility]) Comment: Laboratory test result [facility] ([facility]) ID Date Data Source [id number] 03/15/2021 08:53:00 AM EDT [facility] ([facility]) Name Value Range Interpretation Code Description Data Melisa rce(s) Supporting Document(s) WBC 8.9 x10E3/uL 3.4-10.8 [facility] ([facility]) Hematocrit [Volume Fraction] of Blood by Automated count 38.8 % 3 7.5-51.0 [facility] ([facility]) RBC 5.18 x10E6/uL 4.14-5.80 [facility] ([facility]) Hemoglobin [Mass/volume] in Blood 11.3 g/dL 13.0-17.7 [facility] ([facility]) Erythrocyte mean corpuscular hemoglobin [Entitic mass] by Automated count 21.8 pg 26.6-33.0 [facility] ([facility] Erythrocyte mean corpuscular volume [Entitic volume] by Auto mated count 75 fL 79-97 [facility] ([facility]) Erythrocyte mean corpuscular hemoglobin concentration [Mass/volume] by Automated count 29.1 g/dL 31.5-35.7 [facility] Erythrocyte distribution width [Ratio] by Automated count 19.8 % 11.6-15.4 [facility] ([facility]) Platelets [#/volume] in Blood by Automated count 263 x10E3/uL 150-450 [facility] ([facility]) Nucleated erythrocytes/100 leukocytes [Ratio] in Blood by Automated count [facility] ID Date Data Source [id number] 03/15/2021 08:53:00 AM EDT [facility] ([facility]) Name Value Range Interpretation Code Description Data Melisa rce(s) Supporting Document(s) Glucose 157 mg/dL 65-99 [facility] ([facility]) Urea nitrogen [Mass/volume] in Serum or Plasma 15 mg/dL 8-27 [facility] ([facility]) eGFR If NonAfricn Am 83 mL/min/1.73 [facility] NT ([facility]) Creatinine 0.91 mg/dL 0.76-1.27 [facility] ([facility]) eGFR If Africn Am 96 mL/min/1.73 [facility] ([facility]) [facility] currently reports eGFR in comp liance with the current recommendations of the National Kidney Foundation. [facility] will update reporting as new guidelines are published from the NKF-ASN Task force. Sodium 139 mmol/L 134-144 [facility] ([facility]) Urea nitrogen/Creatinine [Mass Ratio] in Serum or Plasma 16 1 0-24 [facility] ([facility]) Potassium [Moles/volume] in Serum or Plasma 4.7 mmol/L 3.5-5.2 [facility] ([facility]) Chloride [Moles/volume] in Serum or Plasma 102 mmol/L 96-106 [facility] ([facility]) Carbon dioxide, total [Moles/volume] in Serum or Plasma 25 mmol/L 20 -29 [facility] ([facility]) Calcium [Mass/volume] in Serum or Plasma 9.4 mg/dL 8.6-10.2 [facility] ([facility]) Protein [Mass/volume] in Serum or Plasma 7.2 g/dL 6.0-8.5 [facility] ([facility]) Globulin [Mass/volume] in Serum by calculation 2.6 g/dL 1.5-4.5 [facility] ([facility]) A/G Ratio 1.8 1.2-2.2 [facility] ([facility]) Albumin [Mass/volume] in Serum or Plasma 4.6 g/dL 3.7-4.7 [facility] ([facility]) Alkaline phosphatase [Enzymatic activity/volume] in Serum or Plasma 123 IU/L 48-121 [facility] ([facility]) Bilirubin.total [Mass/volume] in Serum or Plasma 0.5 mg/dL 0.0-1.2 [facility] ([facility]) Alanine aminotransferase [Enzymatic activity/volume] in Seru m or Plasma 30 IU/L 0-44 [facility] ([facility]) Aspartate aminotransferase [Enzymatic activity/volume] in Serum or Plasma 23 IU/L 0-40 [facility] ([facility]) ID Date Data Source [id number] 03/15/2021 08:53:00 AM EDT [facility] ([facility]) Name Value Range Interpretation Code Description Data Melisa rce(s) Supporting Document(s) Magnesium Level 2.0 [facility] ([facility]) ID Date Data Source [id number] 03/15/2021 08:53:00 AM EDT [facility] ([facility]) Name Value Range Interpretation Code Description Data Melisa rce(s) Supporting Document(s) Cholesterol 116 120-200 [facility] ([facility]) Triglycerides 226 [facility] ([facility]) HDL 38 40-60 [facility] ([facility]) Cholesterol in LDL [Mass/volume] in Serum or Plasma by calculation 42 [facility] ([facility]) Chol/HDL Ratio Laboratory test result [facility] ([facility]) ID Date Data Source [id number] 03/15/2021 08:53:00 AM EDT [facility] ([facility]) Name Value Range Interpretation Code Description Data Melisa rce(s) Supporting Document(s) White Blood Count 8.9 4.3-10.9 [facility] ([facility]) Platelets 263 130-400 [facility] ([facility]) Red Blood Count 5.18 4.70-6.20 [facility] ([facility]) Hemoglobin 11.3 13.0-17.0 [facility] ([facility]) Hematocrit 38.8 39.0-50.0 [facility] ([facility]) ID Date Data Source [id number] 03/15/2021 08:53:00 AM EDT [facility] ([facility]) Name Value Range Interpretation Code Description Data Melisa rce(s) Supporting Document(s) Albumin [Mass/volume] in Serum or Plasma 4.6 [facility] ([facility]) Alanine aminotransferase [Enzymatic activity/volume] in Serum or Pl asma 30 [facility] ([facility]) Carbon dioxide, total [Moles/volume] in Serum or Plasma 25 [facility] ([facility]) Calcium [Mass/volume] in Serum or Plasma 9.4 [facility] ([facility]) Chloride [Moles/volume] in Serum or Plasma 102 [facility] ([facility]) Potassium [Moles/volume] in Serum or Plasma 4.7 [facility] ([facility]) Alkaline phosphatase [Enzymatic activity/volume] in Serum or Plasma 1 23 [facility] ([facility]) Sodium 139 [facility] ([facility]) Protein [Mass/volume] in Serum or Plasma 7.2 [facility] ([facility]) Aspartate aminotransferase [Enzymatic activity/volume] in Serum or Plasma 23 [facility] ([facility]) Urea nitrogen [Mass/volume] in Serum or Plasma 15 [facility] ([facility]) Glucose 157 70-100 [facility] ([facility]) Creatinine For GFR 0.91 [facility] ([facility]) ID Date Data Source [id number] 03/16/2021 08:06:00 AM EDT [facility] Name Value [...] IU/L 0-44 [facility] ID Date Data Source [id number] 03/16/2021 08:06:00 AM EDT [facility] Name Value [...] x10E3/uL 150-450 [facility] ID Date Data Source [id number] 03/16/2021 08:06:00 AM EDT [facility] Name Value Range Interpretation Code Description Data Melisa rce(s) Supporting Document(s) Cholesterol, Total 116 mg/dL 100-199 [facility] Triglycerides 226 mg/dL 0-149 Above high normal [facility] HDL Cholesterol 38 mg/dL >39 Below low normal [facility] VLDL Cholesterol Sánchez 36 mg/dL 5-40 [facility] LDL Chol Calc (NIH) 42 mg/dL 0-99 [facility] ID Date Data Source [id number] 03/16/2021 08:06:00 AM EDT [facility] Name Value Range Interpretation Code Description Data Melisa rce(s) Supporting Document(s) Magnesium 2.0 mg/dL 1.6-2.3 [facility] ID Date Data Source [id number] 02/09/2021 08:17:00 AM EDT [facility] ([facility]) Name Value Range Interpretation Code Description Data Melisa rce(s) Supporting Document(s) FVC-Pred 4.02 L [facility] ([facility]) PDFReport Laboratory test result [facility] ([facility]) FVC-LLN 3.14 L [facility] ([facility]) FVC-Pre 3.37 L [facility] ([facility]) FVC-%Pred-Pre 83 L [facility] ([facility]) Fev1-Pre 2.32 L [facility] ([facility]) Fev1-Pred 2.93 L [facility] ([facility]) Fev1-%Pred-Pre 79 L [facility] ([facility]) Fev1-LLN 2.18 L [facility] ([facility]) Fev6-%Pred-Pre 86 L [facility] ([facility]) Fev6-Pred 3.77 L [facility] ([facility]) Fev6-Pre 3.28 L [facility] ([facility], ) Hkt6gug-Fkl 69 % [facility] ([facility]) Fev6-LLN 2.92 L [facility] ([facility]) Ron7nqv-Hjqc 73 % [facility] ([facility]) Myj5vjb-Iedc 94 % [facility] ([facility]) Zlj6cri-%Pred-Pre 94 % [facility] ([facility]) Poi1fox-BND 63 % [facility] ([facility]) Nto1vva-%Pred-Pre 103 % [facility] ([facility]) Wrq0kww-Bul 97 % [facility] ([facility]) FEFMax-Pred 7.71 L/E/sec [facility] ([facility]) FEFMax-Pre 3.54 L/E/sec [facility] ([facility]) FEFMax-%Pred-Pre 45 L/E/sec [facility] ([facility]) FEFMax-LLN 5.52 L/E/sec [facility] ([facility]) Aij1761-%Pred-Pre 73 L/E/sec [facility] ([facility]) Xim3631-Ktoe 2.19 L/E/sec [facility] ([facility]) Zbj8045-Uan 1.61 L/E/sec [facility] ([facility]) Sbf8znl3-Dgua 77 % [facility] ([facility]) Meo2819-NBV 0.68 L/E/sec [facility] ([facility]) ExpTime-Pre 8.63 sec [facility] ([facility]) Yyt1ekm4-Yaa 71 % [facility] ([facility]) Fxj7itj8-%Pred-Pre 91 % [facility] ([facility]) Xnh1jbu5-RQD 68 % [facility] ([facility]) ID Date Data Source [id number] 02/01/2021 11:19:[address] [facility] Name Value Range Interpretation Code Description Data Melisa rce(s) Supporting Document(s) &PDF [facility] WJSJAi1lXxMDRgUx41/DRYtdVLJle2TgVYadQXj5AVfqFTWjT8ArgTyyLOXGWUlFV9YTJjJgQUWuYHKs pYy [file] AgICAgICAgICAgICAgICAgICAgICAgICAgICAgICAg ICAgICAgICAgICAgICAgICAgICAgICAgICAgICAgICANCiAgICAgICAgICAgICAgICAgICAgICAgICAg ICAgICAgICAgICAgICAgICAgICAgICAgICAgICAgICAgICAgICAgICAgICAgICAgICAgICAgICAgICAg ICAgICAgICAgICAgICANCiAgICAgICAgICAgICAgIC AgICAgICAgICAgICAgICAgICAgICAgICAgICAgICAgICAgICAgICAgICAgICAgICAgICAgICAgICAgIC AgICAgICAgICAgICAgICAgICAgICAgICANCiAgICAgICAgICAgICAgICAgICAgICAgICAgICAgICAgIC AgICAgICAgICAgICAgICAgICAgICAgICAgICAgICAg ICAgICAgICAgICAgICAgICAgICAgICAgICAgICAgICAgICANCiAgICAgICAgICAgICAgICAgICAgICAg ICAgICAgICAgICAgICAgICAgICAgICAgICAgICAgICAgICAgICAgICAgICAgICAgICAgICAgICAgICAg ICAgICAgICAgICAgICAgICANCiAgICAgICAgICAgIC AgICAgICAgICAgICAgICAgICAgICAgICAgICAgICAgICAgICAgICAgICAgICAgICAgICAgICAgICAgIC AgICAgICAgICAgICAgICAgICAgICAgICAgICANCiAgICAgICAgICAgICAgICAgICAgICAgICAgICAgIC AgICAgICAgICAgICAgICAgICAgICAgICAgICAgICAg ICAgICAgICAgICAgICAgICAgICAgICAgICAgICAgICAgICAgICANCiAgICAgICAgICAgICAgICAgICAg ICAgICAgICAgICAgICAgICAgICAgICAgICAgICAgICAgICAgICAgICAgICAgICAgICAgICAgICAgICAg ICAgICAgICAgICAgICAgICAgICANCiAgICAgICAgIC AgICAgICAgICAgICAgICAgICAgICAgICAgICAgICAgICAgICAgICAgICAgICAgICAgICAgICAgICAgIC AgICAgICAgICAgICAgICAgICAgICAgICAgICAgICANCiAgICAgICAgICAgICAgICAgICAgICAgICAgIC AgICAgICAgICAgICAgICAgICAgICAgICAgICAgICAg ICAgICAgICAgICAgICAgICAgICAgICAgICAgICAgICAgICAgICAgICANCjw/jHVlA6jqzXCwfsT5Q6vn Pp8WPk8ERV5ka0IyCBFiYEsbsnKhJfvLUsTjBSFnFzxTQlm3MNuoTL3ZsXHqS3FqS5LyZZycGV9XKUOv YUTfuPCpMSDbHTNjDiW8KRYkAFalWJ9BfWQpFOrqIU LlMPBfBhUuTJFuNNYjZWGgLE5GFKEcG807joWdFe6EYy8ZLpVrMY8ylr8RGkPiPFQeSzcNXab7TFttMD 5DyGBtfLDnBONeZHYANaUdN3wxu6QdDfWlMNOWDHzsRH3Tz6NnjGMxAGm+Sr4STJ6xf1VpXBmsKPIsBS 9kvl0JFRgMTtSwG4NzxFxsJRifnDhgmdJxRV2CUNDb PZUqyPGjCMvbYHHSNV0GVXmeOFM9MwZjvTqhNJ5FUiWgE2HavsWqqXHxGIXiURUPTc6+DQplbmRvYmoN NrOlLANuq0DgCZb4NO1KVCXhQHqoGX5WDZXskZ8pTNxcUX9JRxLeWGPzDGTZFwIgV14zlAXsNYe1X9Ix YmVkZGVkRmlsZXMgPDwvTmFtZXMgWyBdDQogID4+ID 4+MMpsOI7EEDdlwmWiAPAjVx6NQENqHDYvQO7pVMPrDWAuM1F6pAavENNYIyQcQ6opmagwHP9tMDYrJ7 16wKsxolXgLUJoROPxYb3YYBQbPBH0WDJbzWRwTWbqAATEPCzyJD7GvYElHJN5xZ9aDBgnKUZjAXDlG8 qVGdVciTklCS90gJkzssNnlCKvACq+Gc8BSA4bs3Tk MOo1ocAeOWmjOYLaOEqeZLEgCADrVNYfHKW1HIT7JIUTXlDoXTYmXYEbXRprUMThFDLaja2YBSRbSBFk QJqvWiNiNNEnICYpNPtvVNZsOKJ7BlD9IYXlEEIdPE0VRbGfTHGrCDLzOJnwKPSvXDCqqv8XBFYdXZFn QlR5JVNcGCPrJUZuKWfgRYAsBUOwIINaHTFbZUQxAO 6DBpGqUSVyMCNqXzuoKLWbVODopj3YEOBhCGSqHlF7BsEnBWAvGROmMPrrKVYrGCP2Sfm1YQTuCESpHS 6LInLbGDBvIKq7MWHvWPZjKVUlpm0TWNYySDMsPQD3XbAoHVWyYXOsZPkfNBRwYCV1WaMdUOUgYULwCD 8EJgMzSNTbPFm9TVUbDGJpDCIwrb1QMURoZVLbPBvn PdZlZXPjVSBfWWrdZONfEMJoCUK5GZNhXMEsFJ2EVnYdSQQoBMQqXMSmKNFaOWAbjo0XRFNhMCOwAIG5 CIJzBUPdMYEsPChlNYQeBKK7WLJ4LUBeYKJoYI7RSbTnGJLoKDHqDIxkHUDhRWNiap3BOUDaMUEyMxv9 MOEfRWJkQINyHGnpBOQjNMA4PYJhUTUxWIGeZW8USf UjTFTwSXq7GjnzEHQyAQZlmn6JfSZaePpqjr6USRfDCn7OaPyqZNCnCUfoIl0bmDZmTpCqQBNPHd3Qxy PnMCRuOFPFKUesISJhBCYgCSArMTNuEdAtRNTlUrKhJtU5LZowNAZ3UPDtJxM5TvZ2O7K9BKM0ORXiEO P3GLJhGdT8XMxnWOBfMGP1U0MvMKu+LM5dVEk+As1Ho1WuazF6xaPgLKtoISO6Ub0QRHEHZ4XBGk== ID Date Data Source [id number] 02/01/2021 09:36:[address] [facility] Name Value Range Interpretation Code Description Data Melisa rce(s) Supporting Document(s) EKG [facility] ELDSIz8aUqAZXcJas3WaJxOtWISaRE7lqjj2Z4X1zKXzD6WjtTYyq2rkO2CtI0BmIZHvSCFSCP6AwZZy jb2 [file] Cq56kPA5krzJ9q28S7d1jXr021bnD+F5B09neLMap7 fFIsOfW2qha8578sE3mLn5ir51VOuSknfYrkTawha0bp7O9ag9PkNoaMqQ39x1/CbvE1FH/yOj0/Q71b n3RZlXjMXr+AxEmlDZoam4YZ2wlRtHehKVbxNZay8T7KflQA9QtXI5yveIvCCyKZTi8rsw664hFf0emk PV/TLtdF0WRkIylztKEg5UT1tb3wwibRlvfl8xikRC /C2tcy0au1U8OjpXVhYyNiYQwe4K0R4y9RWyXLh3mW503u44dPshfH9ChweUr29PcrhuJ6EMoPX5aD6R JoQxuu7iDkvbzjLtoPZN1tn7MzYGl6HDf8CgcRrCgSVV0YkUTFGZgjqRQuIenKn5VlX+w60+Fh69TYG/ +pDPe3K/mnMtzg+yrD/eo9/p7v76C+olxXTv2ws+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 [file] B4cvUfCgNeGMvdRsKbCN6M ID Date Data Source [id number] 02/01/2021 06:57:45 AM EDT [facility]FORMATIONPatient [facility]N Name Date of Age Gend*PT [id number] Skye Nash 1950 70 years M HOPPT Location Admission Date/Time Visit ID Attending ProviderCV02/01/21 0655 --- Leandra Xie MD([id number]) EPI ID [facility] Admitting Provider [id number] Leandra Xie MD([id number]) History and PhysicalPatient Name: Skye NashB: 1950The [...] HERNIA, DRAIN PLACEMENT; Surgeon: Jackelin Walker MD;Location: [facility]; Service: Bariatric; Laterality: N/A; MD BOOKED @ 1745MD IS AVAIL TF CORONARY ARTERY BYPASS GRAFT 200 x3 vessel GASTRIC BYPASS N/A 07/13/2015 Procedure: GASTRIC BYPASS REGGIE-EN-Y LAPAROSCOPIC, LIVER BIOPSY; Surgeon:Jackelin Walker MD; Location: [facility]; Service: Bariatric; Laterality:N/A; JOINT REPLACEMENT Right knee PANENDOSCOPY N/A 06/16/2015 Procedure: ENDOSCOPY; Surgeon: Sun Pimentel MD; [facility]; Service: General; Laterality: N/A;Medications Prior to [...] allergies.Physical ExamGeneral: NADHEENT: NC/ATNeck: JVP FlatLungs: CTAHeart: [id number]: This is a 70 years male With [...] patient isagreeable to proceed.Signature: Leandra Xie MD, [facility]ENTERCardiac Electrophysiology and Arrhythmia ServiceDate: February 01, 2021Time: 6:57 AMThis document or parts of this document, were dictated using [employer]. A reasonable attempt at proofreading has been made to minimize errors.Please call with any questions or corrections. Name Value Range Interpretation Code Description Data Melisa rce(s) Supporting Document(s) ID Date Data Source [id number] 01/27/2021 08:40:00 AM EDT [facility] Name Value Range Interpretation Code Description Data Melisa rce(s) Supporting Document(s) SARS coronavirus 2 RNA Not Detected [facility] This lab was ordered by [facility] and reported by [facility]. ID Date Data Source [id number] 01/28/2021 01:08:27 PM EDT [facility] Name Value Range Interpretation Code Description Data Melisa rce(s) Supporting Document(s) SARS-COV-2 C[facility] Not DetectedReference range: Not Detecte d This nucleic acid amplification test was developed and its performance characteristics determined by [employer]. Nucleic acid amplification tests include RT-PCR and [...] detected) result in this assay. Performed At: [place], [place] [id number] Marly Granados PhD Ph:[phone] ID Date Data Source [id number] 01/14/2021 10:46:00 AM EDT [facility] ([facility]) Name Value Range Interpretation Code Description Data Melisa rce(s) Supporting Document(s) Carotid Ultrasound Left Laboratory test result [facility] ([facility]) ID Date Data Source [id number] 12/30/2020 11:48:40 AM EDT [facility] INFORMATIONPatient MRN Name Date of Age Gend*PT [id number] Skye Nash 1950 70 years M ---PT Location Admission Date/Time Visit ID Attending Provider --- --- --- --- EPI ID CSN Admitting Provider [id number] ---[facility], [address] (First Floor)[place], [place] [address]Xd.: Fax: Tatient: Skye Nash : 1950Date: 12/30/20CARDIOLOGY ELECTROPHYSIOLOGY TELEMEDICINE CONSULTPatient was identified by name and date of .Verbal consent was obtained from the patient for this telemedicine visit.Patient is aware of the risks, limitations, and benefits of a telemedicinevisit.This telemedicine assessment was conducted remotely with the assistance ofelectronic communication technology. Telephone Only Codes 56703: 21-30 minutesof medical discussion: Telephone Only .Subjective:I was asked by Natali Downey to consult on this 70 years male with atrial flutterHISTORY OF PRESENT ILLNESS: Patient is a 70-year-old gentleman with a history ofsinus node dysfunction who has a dual-chamber pacemaker. On December 25 thepatient developed palpitations associated with lower extremity edema. 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 A reasonable attempt at proofreading has been made to minimize errors.Please call with any questions or corrections.I have spent 25 minutes with the patient, counseling/coordinating the patient'scare. I discussed the diagnosis of atrial flutter and discussed Managementoption risks and benefitsFollow Up atrial flutter ablationSignature: Leandra Xie MD, [facility]ENTERCardiac Electrophysiology and Arrhythmia ServiceDate: December 30, 2020Time: 11:41 AMThis d ocument or parts of this document, were dictated using [employer]. A reasonable attempt at proofreading has been made to minimize errors.Please call with any questions or corrections. Name Value Range Interpretation Code Description Data Melisa rce(s) Supporting Document(s) ID Date Data Source [id number] 12/30/2020 08:38:00 AM EDT [facility] ([facility]) Name Value Range Interpretation Code Description Data Melisa rce(s) Supporting Document(s) Magnesium [Mass/volume] in Serum or Plasma 1.9 mg/dL 1.6-2.3 [facility] ([facility]) Laboratory test finding (navigational concept) Laboratory test result [facility] ([facility]) ID Date Data Source [id number] 12/30/2020 08:38:00 AM EDT [facility] ([facility]) Name Value Range Interpretation Code Description Data Melisa rce(s) Supporting Document(s) WBC 7.1 x10E3/uL 3.4-10.8 [facility] ([facility]) RBC 5.02 x10E6/uL 4.14-5.80 [facility] ([facility]) Hemoglobin [Mass/volume] in Blood 10.5 g/dL 13.0-17.7 [facility] ([facility]) Hematocrit [Volume Fraction] of Blood by Automated count 38.0 % 3 7.5-51.0 [facility] ([facility]) Erythrocyte mean corpuscular volume [Entitic volume] by Auto mated count 76 fL 79-97 [facility] ([facility]) Erythrocyte mean corpuscular hemoglobin [Entitic mass] by Automated count 20.9 pg 26.6-33.0 [facility] ([facility]) Erythrocyte mean corpuscular hemoglobin concentration [Mass/volume] by Automated count 27.6 g/dL 31.5-35.7 [facility] ([facility]) Erythrocyte distribution width [Ratio] by Automated count 16.0 % 11.6-15.4 [facility] ([facility]) Platelets [#/volume] in Blood by Automated count 317 x10E3/uL 150-450 [facility] ([facility]) Nucleated erythrocytes/100 leukocytes [Ratio] in Blood by Automated count Laboratory test result [facility] ([facility]) ID Date Data Source [id number] 12/30/2020 08:38:00 AM EDT [facility] ([facility]) Name Value Range Interpretation Code Description Data Melisa rce(s) Supporting Document(s) Urea nitrogen [Mass/volume] in Serum or Plasma 19 mg/dL 8-27 [facility] ([facility]) Glucose 185 mg/dL 65-99 [facility] Creatinine 1.02 mg/dL 0.76-1.27 [facility] ([facility]) eGFR If NonAfricn Am 73 mL/min/1.73 [facility] NT ([facility]) eGFR If Africn Am 84 mL/min/1.73 [facility] ([facility]) [facility] currently reports eGFR in comp liance with the current recommendations of the National Kidney Foundation. [facility] will update reporting as new guidelines are published from the NKF-ASN Task force. Urea nitrogen/Creatinine [Mass Ratio] in Serum or Plasma 19 1 0-24 [facility] ([facility]) Sodium 140 mmol/L 134-144 [facility] ([facility]) Potassium [Moles/volume] in Serum or Plasma 4.6 mmol/L 3.5-5.2 [facility] ([facility]) Chloride [Moles/volume] in Serum or Plasma 103 mmol/L 96-106 [facility] ([facility]) Carbon dioxide, total [Moles/volume] in Serum or Plasma 23 mmol/L 20 -29 [facility] ([facility]) Calcium [Mass/volume] in Serum or Plasma 9.3 mg/dL 8.6-10.2 [facility] ([facility]) ID Date Data Source [id number] 12/31/2020 06:05:00 AM EDT [facility] Name Value [...] x10E3/uL 150-450 [facility] ID Date Data Source [id number] 12/31/2020 06:05:00 AM EDT [facility] Name Value [...] mg/dL 8.6-10.2 [facility] ID Date Data Source [id number] 12/31/2020 06:05:00 AM EDT [facility] Name Value Range Interpretation Code Description Data Melisa rce(s) Supporting Document(s) Magnesium 1.9 mg/dL 1.6-2.3 [facility] ID Date Data Source [id number] 08/31/2020 09:43:00 AM EST [facility] ([facility]) Name Value Range Interpretation Code Description Data Melisa rce(s) Supporting Document(s) Magnesium [Mass/volume] in Serum or Plasma 2.1 mg/dL 1.6-2.3 [facility] ([facility]) Laboratory test finding (navigational concept) Laboratory test result [facility] ([facility]) ID Date Data Source [id number] 08/31/2020 09:43:00 AM EST [facility] ([facility] [facility]) Name Value Range Interpretation Code Description Data Melisa rce(s) Supporting Document(s) WBC 8.3 x10E3/uL 3.4-10.8 [facility] ([facility]) RBC 4.82 x10E6/uL 4.14-5.80 [facility] ([facility]) Hematocrit [Volume Fraction] of Blood by Automated count 35.9 % 3 7.5-51.0 [facility] ([facility]) Hemoglobin [Mass/volume] in Blood 10.8 g/dL 13.0-17.7 [facility] ([facility]) Erythrocyte mean corpuscular volume [Entitic volume] by Auto mated count 75 fL 79-97 [facility] ([facility]) Erythrocyte mean corpuscular hemoglobin [Entitic mass] by Automated count 22.4 pg 26.6-33.0 [facility] ([facility]) Erythrocyte distribution width [Ratio] by Automated count 16.2 % 11.6-15.4 [facility] ([facility]) Erythrocyte mean corpuscular hemoglobin concentration [Mass/volume] by Automated count 30.1 g/dL 31.5-35.7 [facility] ([facility]) Platelets [#/volume] in Blood by Automated count 250 x10E3/uL 150-450 [facility] ([facility]) Nucleated erythrocytes/100 leukocytes [Ratio] in Blood by Automated count Laboratory test result [facility] ([facility]) ID Date Data Source [id number] 08/31/2020 09:43:00 AM EST [facility] ([facility]) Name Value Range Interpretation Code Description Data Melisa rce(s) Supporting Document(s) Glucose 140 mg/dL 65-99 [facility] ([facility]) Creatinine 0.87 mg/dL 0.76-1.27 [facility] ([facility]) eGFR If NonAfricn Am 86 mL/min/1.73 MEDE NT ([facility]) Urea nitrogen [Mass/volume] in Serum or Plasma 15 mg/dL 8-27 [facility] ([facility]) Urea nitrogen/Creatinine [Mass Ratio] in Serum or Plasma 17 1 0-24 [facility] ([facility]) eGFR If Africn Am 100 mL/min/1.73 [facility] ([facility]) Potassium [Moles/volume] in Serum or Plasma 4.7 mmol/L 3.5-5.2 [facility] ([facility]) Sodium 143 mmol/L 134-144 [facility] ([facility]) Calcium [Mass/volume] in Serum or Plasma 9.2 mg/dL 8.6-10.2 [facility] ([facility]) Carbon dioxide, total [Moles/volume] in Serum or Plasma 25 mmol/L 20 -29 [facility] ([facility]) Chloride [Moles/volume] in Serum or Plasma 105 mmol/L 96-106 [facility] ([facility]) ID Date Data Source [id number] 09/01/2020 06:05:00 AM EST [facility] Name Value [...] x10E3/uL 150-450 [facility] ID Date Data Source [id number] 09/01/2020 06:05:00 AM EST [facility] Name Value [...] mg/dL 8.6-10.2 [facility] ID Date Data Source [id number] 09/01/2020 06:05:00 AM EST [facility] Name Value Range Interpretation Code Description Data Melisa rce(s) Supporting Document(s) Magnesium 2.1 mg/dL 1.6-2.3 [facility] ID Date Data Source [id number] 07/28/2020 08:59:00 AM EST [facility] ([facility]) Name Value Range Interpretation Code Description Data Melisa rce(s) Supporting Document(s) FVC-Pred 4.02 L [facility] ([facility]) PDFReport Laboratory test result [facility] ([facility]) FVC-Pre 3.31 L [facility] ([facility]) FVC-%Pred-Pre 82 L [facility] ([facility]) FVC-LLN 3.14 L [facility] ([facility]) Fev1-Pred 2.93 L [facility] ([facility]) Fev1-LLN 2.18 L [facility] ([facility]) Fev1-%Pred-Pre 76 L [facility] ([facility]) Fev1-Pre 2.25 L [facility] ([facility]) Fev6-Pre 3.26 L [facility] ([facility]) Fev6-%Pred-Pre 86 L [facility] ([facility]) Fev6-Pred 3.77 L [facility] ([facility]) Uib5tly-Qpz 68 % [facility] ([facility]) Fev6-LLN 2.92 L [facility] ([facility]) Xte1zho-Cdpl 73 % [facility] ([facility]) Pbf1yzs-%Pred-Pre 92 % [facility] ([facility]) Rxl8ood-Wxja 94 % [facility] ([facility]) Vol4rxe-Pdn 99 % [facility] ([facility]) Ddm5tov-KRU 63 % [facility] ([facility]) FEFMax-Pred 7.71 L/E/sec [facility] ([facility]) Czx2zyt-%Pred-Pre 105 % [facility] ([facility]) FEFMax-Pre 3.64 L/E/sec [facility] ([facility]) [id number]-Zfpx 2.19 L/E/sec [facility] ([facility]) FEFMax-%Pred-Pre 47 L/E/sec [facility] ([facility]) FEFMax-LLN 5.52 L/E/sec [facility] ([facility]) Xpg7991-%Pred-Pre 66 L/E/sec [facility] ([facility]) Sum9219-VQN 0.68 L/E/sec [facility] ([facility]) Grn9717-Qdz 1.45 L/E/sec [facility] ([facility]) ExpTime-Pre 6.78 sec [facility] ([facility]) Dzj1wwe4-Squ 69 % [facility] ([facility]) Mff8alf0-Pvqu 77 % [facility] ([facility]) Iin8xxh5-%Pred-Pre 88 % [facility] ([facility]) Lua5wbt5-LNP 68 % [facility] ([facility]) ID Date Data Source [id number] 07/14/2020 02:04:00 PM EST [facility] ([facility]) Name Value Range Interpretation Code Description Data Melisa rce(s) Supporting Document(s) Carotid Ultrasound Bilateral Laboratory test result [facility] ([facility]) Procedure Social History Code Duration Value Status Description Data Source(s ) Smoking 07/26/2021 12:00:00 AM EST Patient is a former smoker completed Patient is a former smoker [facility] ([facility]) Smoking 04/29/2021 12:00:00 AM EDT Patient is a former smoker completed Patient is a former smoker [facility] ([facility], ) Alcohol intake 02/01/2021 12:00:00 AM EDT Current drinker of al cohol (finding) completed Current drinker of alcohol (finding) [facility] Alcohol intake 12/28/2020 12:00:00 AM EDT Current drinker of al cohol (finding) completed Current drinker of alcohol (finding) [facility] Vital Signs ID Date Data Source [id number] Name Value Range Interpretation Code Description Data Source(s) Body weight 227.00 [lb_av] 227.00 [lb_av] [facility] T ([facility]) Respiratory rate 16 /min 16 /min [facility] ( [facility] Heart rate 76 /min 76 /min [facility] ([facility]) Regular Body height 68 [in_i] 68 [in_i] [facility] ([facility]) 5'8" Body mass index (BMI) [Ratio] 34.5 kg/m2 34.5 k g/m2 [facility] ([facility]) Diastolic blood pressure 74 mm[Hg] 74 mm[Hg] [facility] ([facility]) sitting, regular cuff Systolic blood pressure 128 mm[Hg] 128 mm[Hg] M EDENT ([facility]) sitting, regular cuff Systolic blood pressure 131 mm[Hg] 131 mm[Hg] M ED[facility] ([facility]) Diastolic blood pressure 75 mm[Hg] 75 mm[Hg] [facility] ([facility]) Body height 68 [in_i] 68 [in_i] [facility] ([facility]) 5'8" Systolic blood pressure 120 mm[Hg] 120 mm[Hg] M EDENT ([facility]) Diastolic blood pressure 73 mm[Hg] 73 mm[Hg] [facility] ([facility]) Heart rate 72 /min 72 /min [facility] ([facility]) Body temperature 93.0 [degF] 93.0 [degF] [facility] ([facility]) Heart rate 80 /min 80 /min [facility] ([facility]) Irregular Systolic blood pressure 128 mm[Hg] 128 mm[Hg] M EDENT ([facility]) sitting, regular cuff Diastolic blood pressure 74 mm[Hg] 74 mm[Hg] [facility] ([facility]) sitting, regular cuff Body weight 220.00 [lb_av] 220.00 [lb_av] MEDEN T ([facility]) Body mass index (BMI) [Ratio] 33.4 kg/m2 33.4 k g/m2 [facility] ([facility]) Body height 68 [in_i] 68 [in_i] [facility] ([facility]) 5'8" Respiratory rate 16 /min 16 /min [facility] ( [facility]) Systolic blood pressure 124 mm[Hg] 124 mm[Hg] M EDENT ([facility], ) Diastolic blood pressure 62 mm[Hg] 62 mm[Hg] [facility] Heart rate 73 /min 73 /min [facility] ([facility]) Oxygen saturation in Arterial blood by Pulse oximetry 98 % 98 % [facility] ([facility]) Body height 68 [in_i] 68 [in_i] [facility] ([facility]) 5'8" Body weight 224.00 [lb_av] 224.00 [lb_av] MEDEN T ([facility]) Body mass index (BMI) [Ratio] 34.1 kg/m2 34.1 k g/m2 [facility] ([facility]) Wana body weight 154 [lb_av] 154 [lb_av] MED[facility] T ([facility]) Body weight 101.606 kg 101.606 kg [facility] ([facility]) Body surface area Derived from formula 2.14 m2 2.14 m2 [facility] ([facility]) Diastolic blood pressure 62 mm[Hg] 62 mm[Hg] [facility] ([facility]) Body height 68 [in_i] 68 [in_i] [facility] ([facility]) 5'8" Body weight 223.00 [lb_av] 223.00 [lb_av] MED[facility] T ([facility]) Body mass index (BMI) [Ratio] 33.9 kg/m2 33.9 k g/m2 [facility] Body surface area Derived from formula 2.14 m2 2.14 m2 [facility] ([facility]) Body weight 101.153 kg 101.153 kg [facility] ([facility]) Systolic blood pressure 96 mm[Hg] 96 mm[Hg] M EDENT ([facility]) Wana body weight 154 [lb_av] 154 [lb_av] MED[facility] T ([facility]) Heart rate 70 /min 70 /min [facility] ([facility]) Oxygen saturation in Arterial blood by Pulse oximetry 96 % 96 % [facility] ([facility]) Body temperature 98.5 [degF] 98.5 [degF] [facility] ([facility]) Respiratory rate 16 /min 16 /min [facility] ( [facility]) Heart rate 72 /min 72 /min [facility]) Regular Diastolic blood pressure 66 mm[Hg] 66 mm[Hg] [facility]) sitting, regular cuff Systolic blood pressure 126 mm[Hg] 126 mm[facility]Hg] [facility] sitting Diastolic blood pressure 64 mm[Hg] 64 mm[Hg] [facility] ([facility]) sitting Body mass index (BMI) [Ratio] 33.1 kg/m2 33.1 k g/m2 [facility] ([facility]) Body weight 218.00 [lb_av] 218.00 [lb_av] [facility] T ([facility]) Body height 68 [in_i] 68 [in_i] [facility] ([facility]) 5'8" Systolic blood pressure 128 mm[Hg] 128 mm[Hg] [facility] sitting, regular cuff Oxygen saturation in Arterial blood by Pulse oximetry 95 % 95 % [facility] ([facility]) Body height 68 [in_i] 68 [in_i] [facility] 5'8" Body weight 238.00 [lb_av] 238.00 [lb_av] [facility] T ([facility]) Body mass index (BMI) [Ratio] 36.2 kg/m2 36.2 k g/m2 [facility] ([facility]) Wana body weight 154 [lb_av] 154 [lb_av] [facility] T ([facility]) Body weight 107.957 kg 107.957 kg [facility] ([facility]) Body surface area Derived from formula 2.20 m2 2.20 m2 [facility] ([facility]) Systolic blood pressure 140 mm[Hg] 140 mm[Hg] [facility] ([facility]) Diastolic blood pressure 72 mm[Hg] 72 mm[Hg] [facility] ([facility]) Heart rate 70 /min 70 /min [facility] ([facility]) Oxygen saturation in Arterial blood by Pulse oximetry 95 % 95 % [facility] ([facility]) Body height 68 [in_i] 68 [in_i] [facility] ([facility]) 5'8" Body weight 238.00 [lb_av] 238.00 [facility]_av[facility] Body mass index (BMI) [Ratio] 36.2 kg/m2 36.2 k g/m2 [facility] ([facility]) Wana body weight 154 [lb_av] 154 [lb_av] [facility] Body weight 107.957 kg 107.957 kg [facility] ([facility]) Body surface area Derived from formula 2.20 m2 2.20 m2 [facility] ([facility]) Systolic blood pressure 139 mm[Hg] 139 mm[Hg] [facility] Diastolic blood pressure 81 mm[Hg] 81 mm[Hg] [facility] Heart rate 70 /min 70 /min [facility] Body temperature 36.56 Jyothi 36.56 Jyothi [facility] Respiratory rate 12 /min 12 /min [facility] Oxygen saturation in Arterial blood by Pulse oximetry 97 % 97 % [facility] Body height 172.[address] [facility] Body weight 101.[address] [facility] Body mass index (BMI) [Ratio] 34.06 kg/m2 34.06 kg/m2 [facility] Systolic blood pressure 145 mm[Hg] 145 mm[Hg] M EDENT ([facility]) Diastolic blood pressure 80 mm[Hg] 80 mm[Hg] [facility] ([facility]) Systolic blood pressure 145 mm[Hg] 145 mm[Hg] M EDENT ([facility]) Diastolic blood pressure 80 mm[Hg] 80 mm[Hg] [facility] ([facility]) Heart rate 70 /min 70 /min [facility] ([facility]) Body temperature 95.0 [degF] 95.0 [degF] [facility] ([facility]) Body height 68 [in_i] 68 [in_i] [facility] ([facility]) 5'8" Respiratory rate 16 /min 16 /min [facility] ( [facility]) Systolic blood pressure 128 mm[Hg] 128 mm[Hg] M EDENT ([facility]) sitting, regular cuff Body weight 221.00 [lb_av] 221.00 [lb_av] MED[facility] T ([facility]) Body height 68 [in_i] 68 [in_i] [facility] ([facility]) 5'8" Body mass index (BMI) [Ratio] 33.6 kg/m2 33.6 k g/m2 [facility] ([facility]) Heart rate 72 /min 72 /min [facility] ([facility]) Regular Diastolic blood pressure 72 mm[Hg] 72 mm[Hg] [facility] ([facility]) sitting, regular cuff Body weight 233.00 [lb_av] 233.00 [lb_av] [facility] T ([facility]) Body height 68 [in_i] 68 [in_i] [facility] ([facility]) 5'8" Body mass index (BMI) [Ratio] 35.4 kg/m2 35.4 k g/m2 [facility] ([facility]) Heart rate 116 /min 116 /min [facility] ([facility]) Regular Respiratory rate 16 /min 16 /min [facility] ( [facility]) Systolic blood pressure 132 mm[Hg] 132 mm[Hg] M EDENT ([facility]) sitting, regular cuff Diastolic blood pressure 86 mm[Hg] 86 mm[Hg] [facility] ([facility]) sitting, regular cuff Body weight 226.00 [lb_av] 226.00 [lb_av] [facility] T ([facility]) Body height 68 [in_i] 68 [in_i] [facility] ([facility]) 5'8" Body mass index (BMI) [Ratio] 34.4 kg/m2 34.4 k g/m2 [facility] ([facility]) Heart rate 68 /min 68 /min [facility] ([facility]) Regular Respiratory rate 16 /min 16 /min [facility] ( [facility]) Systolic blood pressure 126 mm[Hg] 126 mm[Hg] M EDENT ([facility]) sitting, regular cuff Diastolic blood pressure 74 mm[Hg] 74 mm[Hg] [facility] ([facility]) sitting, regular cuff Systolic blood pressure 126 mm[Hg] 126 mm[Hg] M EDENT ([facility]) sitting Diastolic blood pressure 70 mm[Hg] 70 mm[Hg] [facility] ([facility]) sitting Body height 68 [in_i] 68 [in_i] [facility] 5'8" Systolic blood pressure 142 mm[Hg] 142 mm[Hg] M EDENT ([facility], ) Body weight 231.00 [lb_av] 231.00 [lb_av] MED[facility] T ([facility], ) Diastolic blood pressure 80 mm[Hg] 80 mm[Hg] [facility] ([facility], ) Heart rate 90 /min 90 /min [facility] Body mass index (BMI) [Ratio] 35.1 kg/m2 35.1 k g/m2 [facility] ([facility]) Oxygen saturation in Arterial blood by [facility]ulse oximetry 96 % 96 % [facility] Wana body weight 154 [lb_av] 154 [lb_av] MED[facility] T ([facility], ) Body weight 104.782 kg 104.782 kg [facility] ([facility]) Body surface area Derived from formula 2.17 m2 2.17 m2 [facility] ([facility]) Systolic blood pressure 140 mm[Hg] 140 [facility]Hg] [facility]) Diastolic blood pressure 70 mm[Hg] 70 mm[Hg] [facility] ([facility]) Systolic blood pressure 140 mm[Hg] 140 mm[Hg] M EDENT ([facility]) Diastolic blood pressure 68 mm[Hg] 68 mm[Hg] [facility] ([facility]) Body height 68 [in_i] 68 [in_i] [facility] ([facility]) 5'8" Body weight 223.00 [lb_av] 223.00 [lb_av] MED[facility] T ([facility]) Body weight 101.153 kg 101.153 kg [facility] ([facility]) Body mass index (BMI) [Ratio] 33.9 kg/m2 33.9 k g/m2 [facility] ([facility]) Patient Treatment Plan of Care Planned Activity Planned Date Details Description Data Source (s) normal saline flush 0.9 % injection 3 mL 02/01/2021 08:00:[address] [facility] normal saline flush 0.9 % injection 3 mL 02/01/2021 08:00:[address] [facility]
== END 2021-08-09 23:07 | disposition left against medical advice (07) ==
LOC: M ED 23:02
DX: Z53.29 Procedure and treatment not carried out because of patient's decision for other reasons (principal)

== ENCOUNTER → 2021-11-22 | Outpatient (CLI) | payer OTHER | LOC: M WUC 13:56 | PROVIDERS: ATTEND Physician Assistant | DX: I48.3 Typical atrial flutter (principal) ==

== ENCOUNTER → 2022-06-14 | Outpatient (CLI) | payer OTHER ==
[2022-06-14 11:03] LABS: HEMATOCRIT 36.2 % (42.0-52.0); MEAN CORPUSCULAR HEMOGLOBIN 21.2 pg (27.0-33.0); MEAN CORPUSCULAR HGB CONC 27.6 g/dl (32.0-36.5); MEAN CORPUSCULAR VOLUME 76.7 fl (80.0-96.0); PLATELET COUNT, AUTOMATED 285 10^3/uL (150-450); RED BLOOD COUNT 4.72 10^6/uL (4.30-6.10); WHITE BLOOD COUNT 8.4 10^3/uL (4.0-10.0)
[2022-06-14 12:07] LABS: ALBUMIN 3.7 GM/DL (3.2-5.2); ALT/SGPT 27 U/L (12-78); BILIRUBIN,TOTAL 0.7 MG/DL (0.2-1.0); BLOOD UREA NITROGEN 23 MG/DL (7-18); CALCIUM LEVEL 8.7 MG/DL (8.8-10.2); CARBON DIOXIDE LEVEL 29 MEQ/L (21-32); CHLORIDE LEVEL 106 MEQ/L (98-107); CHOLESTEROL LEVEL 97 MG/DL (<200); CHOLESTEROL RISK RATIO 2.309 (<5); CREATININE FOR GFR 1.19 MG/DL (0.70-1.30); GLOMERULAR FILTRATION RATE > 60.0 (>42); GLUCOSE, FASTING 154 MG/DL (70-100); HDL CHOLESTEROL 42 MG/DL (>40); LDL CHOLESTEROL 24 MG/DL (<100); MAGNESIUM LEVEL 2.2 MG/DL (1.8-2.4); NON-HDL-C 55 MG/DL; POTASSIUM SERUM 4.3 MEQ/L (3.5-5.1); SODIUM LEVEL 139 MEQ/L (136-145); THYROID STIMULATING HORMONE 0.996 uIU/ML (0.358-3.740); TRIGLYCERIDES LEVEL 156 MG/DL (<150)
== END ==
LOC: M WUC 08:08
PROVIDERS: ATTEND Physician Assistant
DX: I50.32 Chronic diastolic (congestive) heart failure (principal); I48.3 Typical atrial flutter; E78.00 Pure hypercholesterolemia, unspecified

== ENCOUNTER → 2022-12-05 | Outpatient (CLI) | payer MEDICARE | LOC: M WUC 08:31 | PROVIDERS: ATTEND Physician Assistant | DX: I48.0 Paroxysmal atrial fibrillation (principal); Z95.0 Presence of cardiac pacemaker ==

== ENCOUNTER → 2023-03-09 | Outpatient (CLI) | payer MEDICARE | LOC: M RAD 09:35 | PROVIDERS: ATTEND Surgery Vascular Surgery | DX: I65.23 Occlusion and stenosis of bilateral carotid arteries (principal) ==

== ENCOUNTER 2023-05-10 13:20 | Day surgery (SDC) | payer MEDICARE ==
[~2023-05-10] VITALS: Ht 172.7 cm; Wt 99.3 kg
[~2023-05-10 13:20] MED LIST changes: +AMIO200T49 PO; +DIGO0.123 PO; -MISO200T56 PO; +MISO200T83 PO
[2023-05-10] MEDS ORDERED: CETACAINE SPRAY 5GM As Ordered ONE (14:01)
[2023-05-10] MEDS ORDERED: LIDOCAINE VISCOUS 2% SOLN 15ML UDC As Ordered ONE (14:01)
[2023-05-10] MEDS ORDERED: MIDAZOLAM INJ 2MG/2ML VIAL As Ordered ONE ×2 (14:03→14:43)
[2023-05-10 15:10] VITALS: TEMP 97.4
[2023-05-10 15:30] VITALS: BP 133/63; O2SAT 96
== END 2023-05-10 15:45 | disposition home or self-care (01) ==
LOC: M SDC 13:20
PROVIDERS: ATTEND Internal Medicine Cardiovascular Disease
DX: I08.9 Rheumatic multiple valve disease, unspecified (principal); I70.0 Atherosclerosis of aorta; Z95.818 Presence of other cardiac implants and grafts; I48.92 Unspecified atrial flutter; R07.9 Chest pain, unspecified; I25.10 Atherosclerotic heart disease of native coronary artery without angina pectoris; I25.2 Old myocardial infarction; Z95.0 Presence of cardiac pacemaker; G47.9 Sleep disorder, unspecified
CPT/HCPCS: 93312; 93320; 93325; J2250

== ENCOUNTER → 2023-07-04 | Outpatient (CLI) | payer MEDICARE ==
[2023-07-04 12:01] LABS: HEMATOCRIT 31.7 % (42.0-52.0); HEMOGLOBIN 8.7 g/dl (13.5-17.5); MEAN CORPUSCULAR HEMOGLOBIN 19.8 pg (27.0-33.0); MEAN CORPUSCULAR HGB CONC 27.4 g/dl (32.0-36.5); MEAN CORPUSCULAR VOLUME 72.2 fl (80.0-96.0); PLATELET COUNT, AUTOMATED 275 10^3/uL (150-450); RED BLOOD COUNT 4.39 10^6/uL (4.30-6.10); WHITE BLOOD COUNT 7.2 10^3/uL (4.0-10.0)
[2023-07-04 12:30] LABS: ALBUMIN 3.8 G/DL (3.2-5.2); ALKALINE PHOSPHATASE 96 U/L (46-116); ALT/SGPT 22 U/L (7.0-40); AST/SGOT 18 U/L (<34); BILIRUBIN,TOTAL 0.6 MG/DL (0.3-1.2); BLOOD UREA NITROGEN 25 MG/DL (9-23); CALCIUM LEVEL 9.1 MG/DL (8.3-10.6); CARBON DIOXIDE LEVEL 29 MMOL/L (20-31); CHLORIDE LEVEL 108 MMOL/L (98-107); CHOLESTEROL LEVEL 118 MG/DL (<200); CREATININE FOR GFR 1.02 MG/DL (0.70-1.30); GLOMERULAR FILTRATION RATE > 60.0 (>42); GLUCOSE, FASTING 123 MG/DL (74-106); HDL CHOLESTEROL 43.7 MG/DL (>40); LDL CHOLESTEROL 43.5 MG/DL (<100); MAGNESIUM LEVEL 1.9 MG/DL (1.8-2.4); NON-HDL-C 74.3 MG/DL; POTASSIUM SERUM 4.4 MMOL/L (3.5-5.1); SODIUM LEVEL 143 MMOL/L (136-145); TOTAL PROTEIN 6.9 G/DL (5.7-8.2); TRIGLYCERIDES LEVEL 154 MG/DL (<150)
[2023-07-04 12:35] LABS: THYROID STIMULATING HORMONE 1.263 uIU/ML (0.55-4.78)
== END ==
LOC: M WUC 09:58
PROVIDERS: ATTEND Physician Assistant
DX: I50.32 Chronic diastolic (congestive) heart failure (principal); I25.10 Atherosclerotic heart disease of native coronary artery without angina pectoris; I48.3 Typical atrial flutter; E78.00 Pure hypercholesterolemia, unspecified

== ENCOUNTER → 2023-07-04 | Outpatient (CLI) | payer MEDICARE ==
[2023-07-04 12:28] LABS: IRON (FE) 23 UG/DL (65-175); PERCENT SATURATION 5.3 % (19.7-50.0); TOTAL IRON BINDING CAPACITY 432 UG/DL (250-425)
[2023-07-04 12:35] LABS: FERRITIN 5.5 NG/ML (10.5-307.3)
[2023-07-04 12:36] LABS: FOLATE > 24.00 NG/ML (>5.4); VITAMIN B12 LEVEL 762 PG/ML (211-911)
[2023-07-04 12:37] LABS: TOTAL 25(OH) VITAMIN D 29.2 NG/ML (20.0-100.0)
== END ==
LOC: M WUC 09:55
PROVIDERS: ATTEND Family Medicine
DX: Z98.84 Bariatric surgery status (principal); Z79.899 Other long term (current) drug therapy; Z86.39 Personal history of other endocrine, nutritional and metabolic disease

== ENCOUNTER → 2024-01-24 | Outpatient (CLI) | payer MEDICARE ==
[~2024-01-24] MED LIST changes: +CLOP75TA99 PO; +THERTAB52 PO
== END ==
LOC: M WUC 09:57
PROVIDERS: ATTEND Physician Assistant
DX: I48.3 Typical atrial flutter (principal)

== ENCOUNTER 2024-05-28 09:22 | Day surgery (SDC) | payer MEDICARE ==
[~2024-05-28] VITALS: Ht 172.7 cm; Wt 95.3 kg
[~2024-05-28 09:22] MED LIST changes: +ASPI81CH33 PO
[2024-05-28] MEDS: NS 1,000 ML IV ONE (09:39)
[2024-05-28] MEDS ORDERED: VALS40TA9 PO (09:43)
[2024-05-28] MEDS ORDERED: LIDOCAINE 2% 100MG/5ML SDV (FOR ANES.) As Ordered ONE (10:18)
[2024-05-28] MEDS ORDERED: propofoL 200 MG/20 ML VIAL As Ordered ONE (10:18)
[2024-05-28 11:05] VITALS: BP 140/80; O2SAT 98
== END 2024-05-28 11:07 | disposition home or self-care (01) ==
LOC: M OPP 09:22
PROVIDERS: ATTEND Surgery
DX: Z12.11 Encounter for screening for malignant neoplasm of colon (principal); D12.5 Benign neoplasm of sigmoid colon; K57.30 Diverticulosis of large intestine without perforation or abscess without bleeding; K64.9 Unspecified hemorrhoids; Z86.0100 Personal history of colon polyps, unspecified; Z98.84 Bariatric surgery status; I11.0 Hypertensive heart disease with heart failure; I25.10 Atherosclerotic heart disease of native coronary artery without angina pectoris; I25.2 Old myocardial infarction; I50.9 Heart failure, unspecified; E78.00 Pure hypercholesterolemia, unspecified; D86.0 Sarcoidosis of lung; J45.909 Unspecified asthma, uncomplicated; Z95.0 Presence of cardiac pacemaker; Z79.899 Other long term (current) drug therapy; Z79.82 Long term (current) use of aspirin; Z95.1 Presence of aortocoronary bypass graft; M10.9 Gout, unspecified; Z79.51 Long term (current) use of inhaled steroids

== ENCOUNTER → 2024-07-30 | Outpatient (CLI) | payer MEDICARE ==
[~2024-07-30] MED LIST changes: +VALS40TA9 PO
== END ==
LOC: M WUC 14:49
PROVIDERS: ATTEND Physician Assistant
DX: I48.3 Typical atrial flutter (principal); I27.20 Pulmonary hypertension, unspecified

== ENCOUNTER → 2025-03-05 | Outpatient (CLI) | payer MEDICARE ==
[~2025-03-05] MED LIST changes: +ADVA1AER10 INH; -AMIO200T49 PO; +AMIO200T54 PO
== END ==
LOC: M WUC 09:04
PROVIDERS: ATTEND Physician Assistant
DX: I48.3 Typical atrial flutter (principal); E05.90 Thyrotoxicosis, unspecified without thyrotoxic crisis or storm

== ENCOUNTER → 2025-03-24 | Outpatient (CLI) | payer MEDICARE | LOC: M RAD 06:36 | PROVIDERS: ATTEND Physician Assistant | DX: I65.23 Occlusion and stenosis of bilateral carotid arteries (principal) ==

== ENCOUNTER 2025-06-01 07:14 | Emergency (ER) | payer MEDICARE ==
[~2025-06-01] VITALS: Ht 170.2 cm; Wt 98.0 kg
[2025-06-01] MEDS ORDERED: ALBU8.5H (07:25)
[2025-06-01 08:39] VITALS: BP 123/73; TEMP 97.3; O2SAT 98
[2025-06-01] MEDS: SODIUM CHLORIDE NASAL 0.65% SPRAY BTL (OCEAN) STA (08:54)
== END 2025-06-01 08:58 | disposition home or self-care (01) ==
LOC: M ED 07:14
DX: R04.0 Epistaxis (principal); I48.91 Unspecified atrial fibrillation; I25.2 Old myocardial infarction; J45.909 Unspecified asthma, uncomplicated; F10.10 Alcohol abuse, uncomplicated; Z79.51 Long term (current) use of inhaled steroids; Z79.1 Long term (current) use of non-steroidal anti-inflammatories (NSAID); Z79.899 Other long term (current) drug therapy; Z79.810 Long term (current) use of selective estrogen receptor modulators (SERMs)

== ENCOUNTER → 2025-08-19 | Outpatient (CLI) | payer MEDICARE ==
[~2025-08-19] MED LIST changes: +ALBU8.5H
[2025-08-19 18:22] LABS: ALT/SGPT 26.0 U/L (7.0-40); AST/SGOT 22.0 U/L (<34); CALCIUM LEVEL 9.2 MG/DL (8.3-10.6); CARBON DIOXIDE LEVEL 28.0 MMOL/L (20-31); CHLORIDE LEVEL 105.0 MMOL/L (98-107); CREATININE FOR GFR 0.98 MG/DL (0.70-1.30); GLOMERULAR FILTRATION RATE 79.4 (>42); MAGNESIUM LEVEL 2.0 MG/DL (1.8-2.4); POTASSIUM SERUM 4.5 MMOL/L (3.5-5.1); SODIUM LEVEL 143.0 MMOL/L (136-145)
[2025-08-19 18:31] LABS: PLATELET COUNT, AUTOMATED 226 10^3/uL (150-450)
== END ==
LOC: M WUC 13:34
PROVIDERS: ATTEND Physician Assistant
DX: I48.3 Typical atrial flutter (principal); I50.32 Chronic diastolic (congestive) heart failure; E83.42 Hypomagnesemia